=== PATIENT | female | born 1960 | race Caucasian/White ===

== ENCOUNTER 2018-01-25 12:40 | Inpatient (IN) | payer OTHER ==
--- NOTE | 2018-01-25 18:07 | HP ---
COWS - Scale Resting Pulse: 0= SD 80 or Below Sweatin=Flushed/Facial Moisture Restless Observation: 1= Difficult to Sit Still Pupil Size: 0= Normal to Room Light Bone or Joint Aches: 2= Severe Diffuse Aches Runny Nose/ Eye Tearin= Runny Nose/Eyes GI Upset > 30mins: 2= Nausea/Diarrhea Tremor Observation: 2= Slight Tremor Visible Yawning Observation: 2= >3x During Session Anxiety or Irritability: 2=Irritable/Anxious Goose Flesh Skin: 3=Piloerection COWS Score: 18 Admission ROS S - HPI Chief Complaint: I am here to do detox and try to get my life back. Allergies/Adverse Reactions: Allergies Allergy/AdvReac Type Severity Reaction Status Date / Time strawberry AdvReac Hives Verified 01/25/18 15:46 History of Present Illness: pt is a 57yr old female with a history of heroin dependence seeking detox for treatment. Exam Limitations: No Limitations - Ebola screening Have you traveled outside of the country in the last 21 days: No Have you had contact with anyone from an Ebola affected area: No Have you been sick,other than usual withdrawal symptoms: No Do you have a fever: No - Review of Systems Constitutional: Chills, Diaphoresis, Changes in sleep EENT: reports: Tearing, Nose Congestion Respiratory: reports: No Symptoms reported Cardiac: reports: No Symptoms Reported GI: reports: Diarrhea (was hospitalized a week ago but not sure of diagnosis nor of any ABX she is suppose to be on.), Nausea, Poor Fluid Intake, Indigestion : reports: No Symptoms Reported Musculoskeletal: reports: Back Pain Integumentary: reports: Flushing Neuro: reports: Tingling, Tremors Endocrine: reports: Excessive Sweating, Flushing Hematology: reports: No Symptoms Reported Psychiatric: reports: Judgement Intact, Mood/Affect Appropiate, Orientated x3, Agitated, Anxious Other Systems: Reviewed and Negative Patient History - Patient Medical History Hx Anemia: No Hx Asthma: Yes (ON MEDICATION) Hx Chronic Obstructive Pulmonary Disease (COPD): No Hx Cancer: No Hx Cardiac Disorders: Yes Hx Congestive Heart Failure: No Hx Hypertension: Yes (ON MEDICATION) Hx Hypercholesterolemia: No Hx Pacemaker: No HX Cerebrovascular Accident: No Hx Seizures: No Hx Dementia: No Hx Diabetes: Yes Hx Gastrointestinal Disorders: Yes (GERD) Hx Liver Disease: No Hx Genitourinary Disorders: No Hx Sexually Transmitted Disorders: No Hx Renal Disease (ESRD): No Hx Thyroid Disease: No Hx Human Immunodeficiency Virus (HIV): No Hx Hepatitis C: No Hx Depression: Yes Hx Suicide Attempt: No (denies) Hx Bipolar Disorder: No Hx Schizophrenia: No - Patient Surgical History Past Surgical History: Yes Hx Neurologic Surgery: No Hx Cataract Extraction: No Hx Cardiac Surgery: No Hx Lung Surgery: No Hx Breast Surgery: No Hx Breast Biopsy: No Hx Abdominal Surgery: Yes Hx Appendectomy: No Hx Cholecystectomy: No Hx Genitourinary Surgery: No Hx Section: No Hx Orthopedic Surgery: No Other Surgical History: HYSTERECTOMY-2015, MASS IN OVARY REMOVED-2013 Anesthesia Reaction: No - PPD History Previous Implant?: Yes Documented Results: Negative w/o proof Implanted On Prior [facility] Admission?: No PPD to be Administered?: Yes - Reproductive History Patient is a Female of Child Bearing Age (11 -55 yrs old): No - Smoking Cessation Smoking history: Current every day smoker Have you smoked in the past 12 months: Yes Aproximately how many cigarettes per day: 4 Hx Chewing Tobacco Use: No Initiated information on smoking cessation: Yes 'Breaking Loose' booklet given: 01/25/18 - Substance & Tx. History Hx Alcohol Use: No Hx Substance Use: Yes Substance Use Type: Heroin Hx Substance Use Treatment: No - Substances Abused Heroin Route: Inhalation Frequency: Daily Amount used: 2 BUNDLES $110 Age of first use: 19 Date of Last Use: 01/24/18 Family Disease History - Family Disease History Family History: Denies Admission Physical Exam S - Vital Signs Vital Signs: Vital Signs - 24 hr 01/25/18 13:19 Temperature 96 F L Pulse Rate 65 Respiratory 20 Rate Blood Pressure 106/62 - Physical General Appearance: Yes: Appropriately Dressed, Moderate Distress, Thin, Tremorous, Irritable, Sweating, Anxious HEENTM: Yes: Hearing grossly Normal, Normal Voice, Nasal Congestion, Rhinorrhea Respiratory: Yes: Lungs Clear, Normal Breath Sounds, No Respiratory Distress Neck: Yes: No masses,lesions,Nodules Breast: Yes: Within Normal Limits Cardiology: Yes: Regular Rhythm, Regular Rate, S1, S2 Abdominal: Yes: Normal Bowel Sounds Genitourinary: Yes: Within Normal Limits Back: Yes: Normal Inspection Musculoskeletal: Yes: full range of Motion, Gait Steady, Back pain Extremities: Yes: Normal Capillary Refill, Normal Inspection, Non-Tender, Tremors Neurological: Yes: Fully Oriented, Alert, Normal Response Integumentary: Yes: Normal Color, Diaphoresis Lymphatic: Yes: Within Normal Limits - Diagnostic (1) Opioid dependence with withdrawal Current Visit: Yes Status: Chronic (2) Cannabis dependence Current Visit: Yes Status: Chronic (3) Insulin dependent diabetes mellitus Current Visit: Yes Status: Chronic (4) Nicotine dependence Current Visit: Yes Status: Chronic Qualifiers: Nicotine product type: cigarettes Substance use status: uncomplicated Qualified Code(s): F17.210 - Nicotine dependence, cigarettes, uncomplicated (5) Hypertension Current Visit: Yes Status: Chronic Qualifiers: Hypertension type: essential hypertension Qualified Code(s): I10 - Essential (primary) hypertension (6) Hypercholesteremia Current Visit: Yes Status: Chronic (7) Asthma Current Visit: Yes Status: Chronic Qualifiers: Asthma severity: mild Asthma persistence: unspecified (8) Neuropathy of right lower extremity Current Visit: Yes Status: Chronic (9) Back pain Current Visit: Yes Status: Chronic Qualifiers: Back pain location: low back pain Cleared for Admission [facility] - Detox or Rehab [facility] Level of Care: Medically Managed Detox Regimen/Protocol: Methadone [facility] Breath Alcohol Content Breath Alcohol Content: 0 Urine Pregancy Test - Result Urine Test Results: Negative- NO Line Present Urine Drug Screen - Results Drug Screen Negative: No Urine Drug Screen Results: THC-Marijuana, OPI-Opiates, TCA-Tricyclic Antidepress
[2018-01-25] MEDS ORDERED: NICOTINE POLACRILEX 4 MG GUM BC PRN (18:39)
[2018-01-25] MEDS ORDERED: MAG HYDROX/AL HYDROX/SIMETH 30 ML UNIT-DOSE CUP PO PRN (18:39)
[2018-01-25] MEDS ORDERED: LOPERAMIDE HCL 2 MG CAPSULE PO PRN (18:39)
[2018-01-25] MEDS ORDERED: ACETAMINOPHEN 325 MG TABLET (FP) PO PRN (18:39)
[2018-01-25] MEDS ORDERED: guaiFENesin/D-METHORPHAN HB 10 ML UNIT-DOSE CUPS PO PRN (18:39)
[2018-01-25] MEDS ORDERED: MENTHOL/PHENOL 1 EACH UD MM PRN (18:39)
[2018-01-25] MEDS ORDERED: P-EPHED 60MG/TRIPROLIDI 2.5MG TABLET PO PRN (18:39)
[2018-01-25] MEDS ORDERED: IBUPROFEN 400 MG TABLET (FP) PO PRN (18:39)
[2018-01-25] MEDS ORDERED: MAGNESIUM CITRATE 300 ML BOTTLE PO PRN (18:39)
[2018-01-25] MEDS ORDERED: MAGNESIUM HYDROX 2400MG/30ML ORAL SUSPENSION 30 ML CUP PO PRN (18:39)
[2018-01-25] MEDS ORDERED: METHADONE HCL 10 MG TABLET (FOR DETOX USE ONLY) PO ONE ×2 (18:39→23:00)
[2018-01-25] MEDS ORDERED: METHADONE HCL 10 MG TABLET (FOR DETOX USE ONLY) ONE (20:44)
[2018-01-25] MEDS: diazePAM 5 MG TABLET PO PRN (20:52)
[2018-01-25] MEDS ORDERED: ALBUTEROL SO4 18 GM HFA INHALER IH PRN (22:00)
[2018-01-25] MEDS: RANITIDINE HCL 150 MG TABLET (FP) PO SCH (22:33)
[2018-01-25] MEDS: THIAMINE HCL 100 MG TABLET (FP) PO SCH (22:34)
[2018-01-25] MEDS: GABAPENTIN 300 MG CAPSULE (FP) PO SCH (22:34)
[2018-01-25] MEDS: MELATONIN 5 MG TABLETS PO PRN (22:35)
[2018-01-25] MEDS: INSULIN (LEVEMIR) 100 UNITS/ML UNITS SQ SCH (22:40)
[2018-01-26] MEDS: diazePAM 5 MG TABLET PO PRN ×6 (00:58→22:29)
[2018-01-26] MEDS: GABAPENTIN 300 MG CAPSULE (FP) PO SCH ×3 (06:09→22:29)
[2018-01-26] MEDS: INSULIN SLIDING SCALE (NOVOLOG) 1 VIAL SQ SCH ×2 (08:28→16:51)
[2018-01-26] MEDS ORDERED: METHADONE HCL 10 MG TABLET (FOR DETOX USE ONLY) PO ONE (10:00)
[2018-01-26 10:07] LABS: HEMATOCRIT 43.4 % (32.4-45.2); HEMOGLOBIN 14.5 GM/dL (10.7-15.3); MCH 31.5 pg (25.7-33.7); MCHC 33.4 g/dl (32.0-36.0); MEAN CELL VOLUME 94.4 fl (80-96); MEAN PLT VOLUME 8.9 fl (7.5-11.1); PLATELET COUNT 221 K/MM3 (134-434); WHITE BLOOD COUNT 8.1 K/mm3 (4.0-10.0)
[2018-01-26 10:20] LABS: CHLORIDE 111 mmol/L (98-107); POTASSIUM 4.1 mmol/L (3.5-5.1); SODIUM 143 mmol/L (136-145)
[2018-01-26 10:42] LABS: ALBUMIN 3.1 g/dl (3.4-5.0); ALK PHOS 116 U/L (45-117); ANION GAP 5 (8-16); BILIRUBIN,TOTAL 0.2 mg/dL (0.2-1.0); BLOOD UREA NITROGEN 15 mg/dL (7-18); CALCIUM 8.9 mg/dL (8.5-10.1); CO2 27 mmol/L (21-32); CREATININE 0.9 mg/dL (0.55-1.02); GLUCOSE,RANDOM 93 mg/dL (74-106); SGOT/AST 14 U/L (15-37); SGPT/ALT 20 U/L (12-78); TOT PROT 6.1 g/dl (6.4-8.2)
[2018-01-26] MEDS: RANITIDINE HCL 150 MG TABLET (FP) PO SCH ×2 (10:51→22:29)
[2018-01-26] MEDS: PRENATAL VITAMINS W/ FOLIC ACID TABLET (FP) PO SCH (10:51)
[2018-01-26] MEDS: LISINOPRIL 5 MG TABLET (FP) PO SCH (10:51)
[2018-01-26] MEDS: ASPIRIN COATED 81 MG TABLET.EC PO SCH (10:56)
[2018-01-26] MEDS: NICOTINE 21 MG/24 HOURS TOPICAL PATCH TD SCH (11:27)
--- NOTE | 2018-01-26 11:28 | EKG ---
Test Reason : Blood Pressure : / mmHG Vent. Rate : 069 BPM Atrial Rate : 069 BPM P-R Int : 140 ms QRS Dur : 076 ms QT Int : 390 ms P-R-T Axes : 071 017 047 degrees QTc Int : 417 ms NORMAL SINUS RHYTHM WITH SINUS ARRHYTHMIA POSSIBLE LEFT ATRIAL ENLARGEMENT NO PREVIOUS ECGS AVAILABLE Confirmed by MARCUS LEACH MD ([id number]) on 01/26/2018 11:28:03 AM Referred By: Confirmed By:MARCUS LEACH MD
--- NOTE | 2018-01-26 11:30 | PN ---
BHS COWS - Scale Resting Pulse: 0= [place] 80 or Below Sweatin= Chills/Flushing Restless Observation: 1= Difficult to Sit Still Pupil Size: 1= Pupils >than Normal Bone or Joint Aches: 2= Severe Diffuse Aches Runny Nose/ Eye Tearin= Runny Nose/Eyes GI Upset > 30mins: 2= Nausea/Diarrhea Tremor Observation of Outstretched Hands: 2= Slight Tremor Visible Yawning Observation: 2= >3x During Session Anxiety or Irritability: 2=Irritable/Anxious Goose Flesh Skin: 0=Smooth Skin COWS Score: 15 BHS Progress Note (SOAP) Subjective: irritable joint pain body ache trouble sleep at night restlessness Objective: 01/26/18 11:28 Vital Signs Temperature 97.3 F L 01/26/18 09:47 Pulse Rate 68 01/26/18 09:47 Respiratory Rate 18 01/26/18 09:47 Blood Pressure 95/65 01/26/18 09:47 O2 Sat by Pulse Oximetry (%) Laboratory Last Values WBC 8.1 K/mm3 (4.0-10.0) 01/26/18 07:50 RBC 4.60 M/mm3 (3.60-5.2) 01/26/18 07:50 Hgb 14.5 GM/dL (10.7-15.3) 01/26/18 07:50 Hct 43.4 % (32.4-45.2) 01/26/18 07:50 MCV 94.4 fl (80-96) 01/26/18 07:50 MCH 31.5 pg (25.7-33.7) 01/26/18 07:50 MCHC 33.4 g/dl (32.0-36.0) 01/26/18 07:50 RDW 14.0 % (11.6-15.6) 01/26/18 07:50 Plt Count 221 K/MM3 (134-434) 01/26/18 07:50 MPV 8.9 fl (7.5-11.1) 01/26/18 07:50 Sodium 143 mmol/L (136-145) 01/26/18 07:50 Potassium 4.1 mmol/L (3.5-5.1) 01/26/18 07:50 Chloride 111 mmol/L (98-107) H 01/26/18 07:50 Carbon Dioxide 27 mmol/L (21-32) 01/26/18 07:50 Anion Gap 5 (8-16) L 01/26/18 07:50 BUN 15 mg/dL (7-18) 01/26/18 07:50 Creatinine 0.9 mg/dL (0.55-1.02) 01/26/18 07:50 Creat Clearance w eGFR > 60 (>60) 01/26/18 07:50 POC Glucometer 100 UNITS (80-120) 01/26/18 06:49 Random Glucose 93 mg/dL (74-106) 01/26/18 07:50 Calcium 8.9 mg/dL (8.5-10.1) 01/26/18 07:50 Total Bilirubin 0.2 mg/dL (0.2-1.0) 01/26/18 07:50 AST 14 U/L (15-37) L 01/26/18 07:50 ALT 20 U/L (12-78) 01/26/18 07:50 Alkaline Phosphatase 116 U/L (45-117) 01/26/18 07:50 Total Protein 6.1 g/dl (6.4-8.2) L 01/26/18 07:50 Albumin 3.1 g/dl (3.4-5.0) L 01/26/18 07:50 lab noted Assessment: 01/26/18 11:29 withdrawal sx Plan: continue detox
[2018-01-26] MEDS: BACLOFEN 10 MG TABLET (FP) PO PRN ×2 (12:58→22:29)
[2018-01-26 14:20] LABS: URINE APPEARANCE CLEAR; URINE BILIRUBIN NEGATIVE (<2.0 mg/dL); URINE BLOOD NEGATIVE (NEGATIVE); URINE COLOR YELLOW; URINE GLUCOSE (UA) NEGATIVE (NEGATIVE); URINE KETONE NEGATIVE (NEGATIVE); URINE LEUK ESTERASE NEGATIVE (NEGATIVE); URINE NITRITE NEGATIVE (NEGATIVE); URINE PROTEIN NEGATIVE (NEGATIVE); URINE UROBILINOGEN NEGATIVE mg/dL (0.2-1.0)
--- NOTE | 2018-01-26 19:48 | CONSULT ---
[facility] Psychiatric Consult - Data Date of interview: 01/26/18 Admission source: [facility] Identifying data: Readmission to [facility] for this 57 y/o female seeking detox treatment on for heroin and cannabis dependence.Patient is ,a mother of four,homeless ([facility]),unemployed and supported on SSI benefits. Substance Abuse History: Confirmed by patient in this session.Smoking history: Current every day smoker. Have you smoked in the past 12 months: Yes. Aproximately how many cigarettes per day: 4. Hx Chewing Tobacco Use: No. Initiated information on smoking cessation: Yes. 'Breaking Loose' booklet given : 01/25/18. - Substance & Tx. History. Hx Alcohol Use: No. Hx Substance Use: Yes. Substance Use Type: Heroin. Hx Substance Use Treatment: No. - Substances Abused. Heroin. Route: Inhalation. Frequency: Daily. Amount used: 2 BUNDLES $110. Age of first use: 19. Date of Last Use: 01/24/18 Medical History: Diabetes mellitus,bronchial asthma,GERD and a history of hysterectomy (2016). Psychiatric History: History of four psychiatric hospitalizations in [place].Diagnosed with Bipolar Disorder.Prescribed seroquel 400 mg po hs.Ms Nicholson gets her psychiatric outpatient services at her [facility], [facility].Patient denies history of suicide attempts. Physical/Sexual Abuse/Trauma History: Patient denies. Additional Comment: Urine Drug Screen Results: THC-Marijuana, OPI-Opiates, TCA- Tricyclic Antidepressant.Noted. Mental Status Exam - Mental Status Exam Alert and Oriented to: Time, Place, Person Cognitive Function: Good Patient Appearance: Well Groomed Mood: Nervous, Withdrawn, Anxious Affect: Mood Congruent Patient Behavior: Fatigued, Appropriate, Cooperative Speech Pattern: Clear, Appropriate Voice Loudness: Normal Thought Process: Goal Oriented Thought Disorder: Not Present Hallucinations: Denies Suicidal Ideation: Denies Homicidal Ideation: Denies Insight/Judgement: Poor Sleep: Poorly, Difficulty falling asleep Appetite: Good Muscle strength/Tone: Normal Gait/Station: Normal Psychiatric Findings - Problem List (Adrian 1, 2,3) (1) Opioid dependence with withdrawal Current Visit: Yes Status: Acute (2) Cannabis dependence Current Visit: Yes Status: Acute (3) Nicotine dependence Current Visit: Yes Status: Chronic Qualifiers: Nicotine product type: cigarettes Substance use status: uncomplicated Qualified Code(s): F17.210 - Nicotine dependence, cigarettes, uncomplicated (4) Bipolar disorder Current Visit: Yes Status: Chronic (5) Insomnia Current Visit: Yes Status: Acute - Initial Treatment Plan Initial Treatment Plan: Psychoeducation.Sleep hygiene.Detoxification.Seroquel 300 mg po hs (reduced).Side effects/benefits discussed with the patient.Ms Nicholson agrees with this careplan.Observation.Dose of seroquel was verified ( refill bottle seen/dated 01/19/18). NO scripts necessary at discharge (supply still available).
[2018-01-26] MEDS: THIAMINE HCL 100 MG TABLET (FP) PO SCH (22:29)
[2018-01-26] MEDS: INSULIN (LEVEMIR) 100 UNITS/ML UNITS SQ SCH (22:34)
--- NOTE | 2018-01-26 22:53 | PN ---
[facility] Progress Note Note: was called by a nurse to enter order for Seroquel, consulting note appreciated, his recommendation to start Seroquel with reduce dosage 300 mg po hs, order placed.
[2018-01-26] MEDS: QUEtiapine FUMARATE 300 MG TABLET PO SCH (23:00)
[2018-01-27] MEDS: GABAPENTIN 300 MG CAPSULE (FP) PO SCH ×3 (06:46→22:25)
[2018-01-27] MEDS: INSULIN SLIDING SCALE (NOVOLOG) 1 VIAL SQ SCH ×2 (06:46→18:04)
--- NOTE | 2018-01-27 08:48 | EKG ---
Test Reason : Blood Pressure : / mmHG Vent. Rate : 075 BPM Atrial Rate : 075 BPM P-R Int : 136 ms QRS Dur : 072 ms QT Int : 394 ms P-R-T Axes : 074 017 044 degrees QTc Int : 439 ms NORMAL SINUS RHYTHM WITH SINUS ARRHYTHMIA NORMAL ECG WHEN COMPARED WITH ECG OF 25-JAN-2018 21:06, NO SIGNIFICANT CHANGE WAS FOUND Confirmed by RAFY BIRMINGHAM MD ([id number]) on 01/27/2018 8:48:21 AM Referred By: Confirmed By:RAFY BIRMINGHAM MD
[2018-01-27] MEDS ORDERED: METHADONE HCL 5 MG TABLET (FOR DETOX USE ONLY) PO ONE (10:00)
[2018-01-27] MEDS: CITALOPRAM HYDROBROMIDE 20 MG TABLET (FP) PO SCH (10:40)
[2018-01-27] MEDS: ASPIRIN COATED 81 MG TABLET.EC PO SCH (10:40)
[2018-01-27] MEDS: PRENATAL VITAMINS W/ FOLIC ACID TABLET (FP) PO SCH (10:40)
[2018-01-27] MEDS: diazePAM 5 MG TABLET PO PRN ×3 (10:40→20:04)
[2018-01-27] MEDS: BACLOFEN 10 MG TABLET (FP) PO PRN ×2 (10:40→22:25)
[2018-01-27] MEDS: RANITIDINE HCL 150 MG TABLET (FP) PO SCH ×2 (10:40→22:25)
[2018-01-27] MEDS: NICOTINE 21 MG/24 HOURS TOPICAL PATCH TD SCH (12:46)
[2018-01-27] MEDS: LISINOPRIL 5 MG TABLET (FP) PO SCH (12:46)
--- NOTE | 2018-01-27 14:01 | PN ---
BHS COWS - Scale Resting Pulse: 1= ID [id number] Sweatin= Chills/Flushing Restless Observation: 3= Extraneous Movement Pupil Size: 1= Pupils >than Normal Bone or Joint Aches: 2= Severe Diffuse Aches Runny Nose/ Eye Tearin= Nasal Congestion GI Upset > 30mins: 2= Nausea/Diarrhea Tremor Observation of Outstretched Hands: 2= Slight Tremor Visible Yawning Observation: 1= 1-2x During Session Anxiety or Irritability: 2=Irritable/Anxious Goose Flesh Skin: 0=Smooth Skin COWS Score: 16 BHS Progress Note (SOAP) Subjective: ALERT,IRRITABLE,ANXIOUS.INTERRUPTED SLEEP,PAIN IN THE BODY Objective: 01/27/18 13:59 Vital Signs Temperature 97.9 F 01/27/18 09:44 Pulse Rate 83 01/27/18 09:44 Respiratory Rate 16 01/27/18 09:44 Blood Pressure 119/67 01/27/18 09:44 O2 Sat by Pulse Oximetry (%) 01/27/18 14:00 Laboratory Last Values WBC 8.1 K/mm3 (4.0-10.0) 01/26/18 07:50 RBC 4.60 M/mm3 (3.60-5.2) 01/26/18 07:50 Hgb 14.5 GM/dL (10.7-15.3) 01/26/18 07:50 Hct 43.4 % (32.4-45.2) 01/26/18 07:50 MCV 94.4 fl (80-96) 01/26/18 07:50 MCH 31.5 pg (25.7-33.7) 01/26/18 07:50 MCHC 33.4 g/dl (32.0-36.0) 01/26/18 07:50 RDW 14.0 % (11.6-15.6) 01/26/18 07:50 Plt Count 221 K/MM3 (134-434) 01/26/18 07:50 MPV 8.9 fl (7.5-11.1) 01/26/18 07:50 Sodium 143 mmol/L (136-145) 01/26/18 07:50 Potassium 4.1 mmol/L (3.5-5.1) 01/26/18 07:50 Chloride 111 mmol/L (98-107) H 01/26/18 07:50 Carbon Dioxide 27 mmol/L (21-32) 01/26/18 07:50 Anion Gap 5 (8-16) L 01/26/18 07:50 BUN 15 mg/dL (7-18) 01/26/18 07:50 Creatinine 0.9 mg/dL (0.55-1.02) 01/26/18 07:50 Creat Clearance w eGFR > 60 (>60) 01/26/18 07:50 POC Glucometer 116 UNITS (80-120) 01/27/18 06:08 Random Glucose 93 mg/dL (74-106) 01/26/18 07:50 Calcium 8.9 mg/dL (8.5-10.1) 01/26/18 07:50 Total Bilirubin 0.2 mg/dL (0.2-1.0) 01/26/18 07:50 AST 14 U/L (15-37) L 01/26/18 07:50 ALT 20 U/L (12-78) 01/26/18 07:50 Alkaline Phosphatase 116 U/L (45-117) 01/26/18 07:50 Total Protein 6.1 g/dl (6.4-8.2) L 01/26/18 07:50 Albumin 3.1 g/dl (3.4-5.0) L 01/26/18 07:50 Urine Color Yellow 01/26/18 10:00 Urine Appearance Clear 01/26/18 10:00 Urine pH 5.0 (5.0-8.0) 01/26/18 10:00 Ur Specific [place] 1.014 (1.001-1.035) 01/26/18 10:00 Urine Protein Negative (NEGATIVE) 01/26/18 10:00 Urine Glucose (UA) Negative (NEGATIVE) 01/26/18 10:00 Urine Ketones Negative (NEGATIVE) 01/26/18 10:00 Urine Blood Negative (NEGATIVE) 01/26/18 10:00 Urine Nitrite Negative (NEGATIVE) 01/26/18 10:00 Urine Bilirubin Negative (<2.0 mg/dL) 01/26/18 10:00 Urine Urobilinogen Negative mg/dL (0.2-1.0) 01/26/18 10:00 Ur Leukocyte Esterase Negative (NEGATIVE) 01/26/18 10:00 RPR Titer Nonreactive (NONREACTIVE) 01/26/18 07:50 Assessment: 01/27/18 14:00 WITHDRAWAL SYMPTOM Plan: CONTINUE DETOX
[2018-01-27] MEDS: THIAMINE HCL 100 MG TABLET (FP) PO SCH (22:24)
[2018-01-27] MEDS: QUEtiapine FUMARATE 300 MG TABLET PO SCH (22:25)
[2018-01-27] MEDS: INSULIN (LEVEMIR) 100 UNITS/ML UNITS SQ SCH (22:25)
[2018-01-28] MEDS: GABAPENTIN 300 MG CAPSULE (FP) PO SCH ×3 (06:33→22:34)
[2018-01-28] MEDS: INSULIN SLIDING SCALE (NOVOLOG) 1 VIAL SQ SCH ×2 (06:33→16:31)
[2018-01-28] MEDS: diazePAM 5 MG TABLET PO PRN ×2 (07:33→15:12)
[2018-01-28] MEDS ORDERED: METHADONE HCL 5 MG TABLET (FOR DETOX USE ONLY) PO ONE (10:00)
[2018-01-28] MEDS: RANITIDINE HCL 150 MG TABLET (FP) PO SCH ×2 (10:30→22:34)
[2018-01-28] MEDS: CITALOPRAM HYDROBROMIDE 20 MG TABLET (FP) PO SCH (10:30)
[2018-01-28] MEDS: ASPIRIN COATED 81 MG TABLET.EC PO SCH (10:30)
[2018-01-28] MEDS: LISINOPRIL 5 MG TABLET (FP) PO SCH (10:30)
[2018-01-28] MEDS: PRENATAL VITAMINS W/ FOLIC ACID TABLET (FP) PO SCH (10:30)
[2018-01-28] MEDS: NICOTINE 21 MG/24 HOURS TOPICAL PATCH TD SCH (10:33)
[2018-01-28] MEDS: hydrOXYzine PAMOATE 50 MG CAPSULE (FP) PO PRN ×2 (17:36→22:34)
[2018-01-28] MEDS: QUEtiapine FUMARATE 300 MG TABLET PO SCH (22:34)
[2018-01-28] MEDS: BACLOFEN 10 MG TABLET (FP) PO PRN (22:34)
[2018-01-28] MEDS: INSULIN (LEVEMIR) 100 UNITS/ML UNITS SQ SCH (22:35)
[2018-01-28] MEDS: THIAMINE HCL 100 MG TABLET (FP) PO SCH (22:35)
[2018-01-29] MEDS: hydrOXYzine PAMOATE 50 MG CAPSULE (FP) PO PRN ×2 (06:51→12:52)
[2018-01-29] MEDS: GABAPENTIN 300 MG CAPSULE (FP) PO SCH ×3 (06:51→22:26)
[2018-01-29] MEDS: INSULIN SLIDING SCALE (NOVOLOG) 1 VIAL SQ SCH ×2 (07:14→17:05)
[2018-01-29] MEDS ORDERED: METHADONE HCL 10 MG TABLET (FOR DETOX USE ONLY) PO ONE (10:00)
[2018-01-29] MEDS: PRENATAL VITAMINS W/ FOLIC ACID TABLET (FP) PO SCH (11:01)
[2018-01-29] MEDS: LISINOPRIL 5 MG TABLET (FP) PO SCH (11:01)
[2018-01-29] MEDS: CITALOPRAM HYDROBROMIDE 20 MG TABLET (FP) PO SCH (11:01)
[2018-01-29] MEDS: NICOTINE 21 MG/24 HOURS TOPICAL PATCH TD SCH (11:01)
[2018-01-29] MEDS: ASPIRIN COATED 81 MG TABLET.EC PO SCH (11:01)
[2018-01-29] MEDS: RANITIDINE HCL 150 MG TABLET (FP) PO SCH ×2 (11:01→22:26)
--- NOTE | 2018-01-29 14:30 | PN ---
BHS Progress Note (SOAP) Subjective: ALERT,IRRITABLE,ANXIOUS,INTERRUPTED SLEEP Objective: 01/29/18 14:29 Vital Signs Temperature 98.1 F 01/29/18 09:44 Pulse Rate 76 01/29/18 09:44 Respiratory Rate 20 01/29/18 09:44 Blood Pressure 128/79 01/29/18 09:44 O2 Sat by Pulse Oximetry (%) Assessment: 01/29/18 14:29 WITHDRAWAL SYMPTOM 01/29/18 14:30 BGM 113 Plan: CONTINUE DETOX,DISCHARGE IN AM
--- NOTE | 2018-01-29 14:36 | PN ---
BHS Progress Note (SOAP) Subjective: ALERT,IRRITABLE,ANXIOUS,INTERRUPTED SLEEP,PAIN IN THE BODY Objective: 01/29/18 14:34 [id number] Assessment: 01/29/18 14:34 WITHDRAWAL SYMPTOM Plan: CONTINUE DETOX
[2018-01-29] MEDS ORDERED: INSULIN (NOVOLOG) ASPART 100 UNITS/ML 10ML VIAL ONE (16:59)
[2018-01-29] MEDS ORDERED: QUEtiapine FUMARATE 100 MG TABLET (FP) ONE (21:17)
[2018-01-29] MEDS: THIAMINE HCL 100 MG TABLET (FP) PO SCH (22:26)
[2018-01-29] MEDS: QUEtiapine FUMARATE 300 MG TABLET PO SCH (22:26)
[2018-01-29] MEDS: MELATONIN 5 MG TABLETS PO PRN (22:27)
[2018-01-29] MEDS: INSULIN (LEVEMIR) 100 UNITS/ML UNITS SQ SCH (22:29)
[2018-01-30] MEDS ORDERED: METHADONE HCL 5 MG TABLET (FOR DETOX USE ONLY) PO ONE (06:00)
[2018-01-30] MEDS: INSULIN SLIDING SCALE (NOVOLOG) 1 VIAL SQ SCH ×2 (07:47→17:05)
[2018-01-30] MEDS: GABAPENTIN 300 MG CAPSULE (FP) PO SCH ×3 (07:47→21:11)
--- NOTE | 2018-01-30 08:57 | DS ---
[facility] Detox Discharge Summary Admission Date: 01/25/18 Discharge Date: 01/30/18 - History Present History: Opioid Dependence Additional Comments: 57 years old female admitted on 01/25/18 for opiate withdrawal sx completed opiate detox regimen tolerated well denies opiate withdrawal sx alert oriented x 3 had positive ppd and negative chest x ray today denies night sweat denies shortness of breath denies dizziness agrees aftercare [facility] for recovery journey brief motivational intervention to promote sobriety - Physical Exam Results Vital Signs: Vital Signs Temperature 95.7 F L 01/30/18 06:00 Pulse Rate 68 01/30/18 06:00 Respiratory Rate 18 01/30/18 06:00 Blood Pressure 125/62 01/30/18 06:00 O2 Sat by Pulse Oximetry (%) Pertinent Admission Physical Exam Findings: withdrawal sx Vital Signs Temperature 95.7 F L 01/30/18 06:00 Pulse Rate 68 01/30/18 06:00 Respiratory Rate 18 01/30/18 06:00 Blood Pressure 125/62 01/30/18 06:00 O2 Sat by Pulse Oximetry (%) Laboratory Last Values WBC 8.1 K/mm3 (4.0-10.0) 01/26/18 07:50 RBC 4.60 M/mm3 (3.60-5.2) 01/26/18 07:50 Hgb 14.5 GM/dL (10.7-15.3) 01/26/18 07:50 Hct 43.4 % (32.4-45.2) 01/26/18 07:50 MCV 94.4 fl (80-96) 01/26/18 07:50 MCH 31.5 pg (25.7-33.7) 01/26/18 07:50 MCHC 33.4 g/dl (32.0-36.0) 01/26/18 07:50 RDW 14.0 % (11.6-15.6) 01/26/18 07:50 Plt Count 221 K/MM3 (134-434) 01/26/18 07:50 MPV 8.9 fl (7.5-11.1) 01/26/18 07:50 Sodium 143 mmol/L (136-145) 01/26/18 07:50 Potassium 4.1 mmol/L (3.5-5.1) 01/26/18 07:50 Chloride 111 mmol/L (98-107) H 01/26/18 07:50 Carbon Dioxide 27 mmol/L (21-32) 01/26/18 07:50 Anion Gap 5 (8-16) L 01/26/18 07:50 BUN 15 mg/dL (7-18) 01/26/18 07:50 Creatinine 0.9 mg/dL (0.55-1.02) 01/26/18 07:50 Creat Clearance w eGFR > 60 (>60) 01/26/18 07:50 POC Glucometer 114 UNITS (80-120) 01/30/18 05:56 Random Glucose 93 mg/dL (74-106) 01/26/18 07:50 Calcium 8.9 mg/dL (8.5-10.1) 01/26/18 07:50 Total Bilirubin 0.2 mg/dL (0.2-1.0) 01/26/18 07:50 AST 14 U/L (15-37) L 01/26/18 07:50 ALT 20 U/L (12-78) 01/26/18 07:50 Alkaline Phosphatase 116 U/L (45-117) 01/26/18 07:50 Total Protein 6.1 g/dl (6.4-8.2) L 01/26/18 07:50 Albumin 3.1 g/dl (3.4-5.0) L 01/26/18 07:50 Urine Color Yellow 01/26/18 10:00 Urine Appearance Clear 01/26/18 10:00 Urine pH 5.0 (5.0-8.0) 01/26/18 10:00 Ur Specific [place] 1.014 (1.001-1.035) 01/26/18 10:00 Urine Protein Negative (NEGATIVE) 01/26/18 10:00 Urine Glucose (UA) Negative (NEGATIVE) 01/26/18 10:00 Urine Ketones Negative (NEGATIVE) 01/26/18 10:00 Urine Blood Negative (NEGATIVE) 01/26/18 10:00 Urine Nitrite Negative (NEGATIVE) 01/26/18 10:00 Urine Bilirubin Negative (<2.0 mg/dL) 01/26/18 10:00 Urine Urobilinogen Negative mg/dL (0.2-1.0) 01/26/18 10:00 Ur Leukocyte Esterase Negative (NEGATIVE) 01/26/18 10:00 RPR Titer Nonreactive (NONREACTIVE) 01/26/18 07:50 lab noted - Treatment Hospital Course: Detox Protocol Followed, Detoxed Safely, Responded well, Discharged Condition Good, Rehab Referral Accepted Patient has Accepted a Rehab Referral to: [facility] - Medication Discharge Medications: Ambulatory Orders Aspirin [Aspirin EC] 81 mg PO DAILY 01/25/18 Citalopram Hydrobromide [Citalopram HBr] 20 mg PO DAILY 01/25/18 Famotidine [Pepcid -] 40 mg PO HS 01/25/18 Hydroxyzine HCl 25 mg PO Q8H 01/25/18 Insulin (LOG) Aspart [NovoLOG -] See Protocol SQ QID 01/25/18 Insulin Glargine,Hum.rec.anlog [Lantus] 25 units SQ HS 01/25/18 Omeprazole 20 mg PO HS 01/25/18 Quetiapine Fumarate [Seroquel -] 400 mg PO HS 01/25/18 Albuterol Sulfate Inhaler - [Ventolin HFA Inhaler -] 1 - 2 inh PO QID #1 inhaler 01/30/18 Gabapentin [Neurontin -] 300 mg PO Q8H #60 capsule 01/30/18 Lisinopril 5 mg PO DAILY #30 tablet 01/30/18 - Diagnosis (1) Opioid dependence with withdrawal Current Visit: Yes Status: Acute (2) Asthma Current Visit: Yes Status: Chronic Qualifiers: Asthma severity: mild Asthma persistence: unspecified Asthma complication type: with status asthmaticus Qualified Code(s): J45.902 - Unspecified asthma with status asthmaticus (3) Hypercholesteremia Current Visit: Yes Status: Chronic (4) Hypertension Current Visit: Yes Status: Chronic Qualifiers: Hypertension type: essential hypertension Qualified Code(s): I10 - Essential (primary) hypertension (5) Insulin dependent diabetes mellitus Current Visit: Yes Status: Chronic (6) Nicotine dependence Current Visit: Yes Status: Acute Qualifiers: Nicotine product type: cigarettes Substance use status: in withdrawal Qualified Code(s): F17.213 - Nicotine dependence, cigarettes, with withdrawal - AMA Did Patient Leave Against Medical Advice: No
[2018-01-30] MEDS: PRENATAL VITAMINS W/ FOLIC ACID TABLET (FP) PO SCH (10:22)
[2018-01-30] MEDS: ASPIRIN COATED 81 MG TABLET.EC PO SCH (10:22)
[2018-01-30] MEDS: CITALOPRAM HYDROBROMIDE 20 MG TABLET (FP) PO SCH (10:22)
[2018-01-30] MEDS: LISINOPRIL 5 MG TABLET (FP) PO SCH (10:22)
[2018-01-30] MEDS: NICOTINE 21 MG/24 HOURS TOPICAL PATCH TD SCH (10:23)
[2018-01-30] MEDS: RANITIDINE HCL 150 MG TABLET (FP) PO SCH ×2 (10:23→21:11)
--- NOTE | 2018-01-30 10:46 | HP ---
[facility] Re[facility] Assess/Revision - Admission History Admitted to Rehab from: [facility] [place] Date of Admission to Rehab: 01/30/18 - Vital signs Vital Signs: Vital Signs Period Temp Pulse Resp BP Sys/Zuniga Pulse Ox Last 24 Hr 95.7 F-98.8 F 68-110 16-20 117-144/62-82 - Findings Detox History & Physical reviewed: Yes Concur with findings: Yes Comments/Additional Findings: 57 years old transferred from detox to rehab admission as per protocol Inpatient Rehab Admission - Rehab Admission Criteria Previous failed treatment: Yes Poor recovery environment: Yes Comorbidities: Yes Lacks judgement: No Patient is meeting Inpatient Rehab admission criteria:: Yes
[2018-01-30 11:39] VITALS: BMI 25.7
[2018-01-30] MEDS: hydrOXYzine PAMOATE 50 MG CAPSULE (FP) PO PRN ×2 (13:21→19:45)
[2018-01-30] MEDS: INSULIN (LEVEMIR) 100 UNITS/ML UNITS SQ SCH (21:10)
[2018-01-30] MEDS: MELATONIN 5 MG TABLETS PO PRN (21:11)
[2018-01-30] MEDS: THIAMINE HCL 100 MG TABLET (FP) PO SCH (21:11)
[2018-01-30] MEDS: QUEtiapine FUMARATE 300 MG TABLET PO SCH (21:11)
[2018-01-31] MEDS: GABAPENTIN 300 MG CAPSULE (FP) PO SCH ×3 (06:58→21:09)
[2018-01-31] MEDS: INSULIN SLIDING SCALE (NOVOLOG) 1 VIAL SQ SCH ×2 (06:58→17:10)
[2018-01-31] MEDS: hydrOXYzine PAMOATE 50 MG CAPSULE (FP) PO PRN ×3 (07:00→20:10)
[2018-01-31] MEDS: PRENATAL VITAMINS W/ FOLIC ACID TABLET (FP) PO SCH (09:51)
[2018-01-31] MEDS: RANITIDINE HCL 150 MG TABLET (FP) PO SCH ×2 (09:51→21:09)
[2018-01-31] MEDS: ASPIRIN COATED 81 MG TABLET.EC PO SCH (09:51)
[2018-01-31] MEDS: NICOTINE 21 MG/24 HOURS TOPICAL PATCH TD SCH (09:52)
[2018-01-31] MEDS: CITALOPRAM HYDROBROMIDE 20 MG TABLET (FP) PO SCH (09:52)
[2018-01-31] MEDS: LISINOPRIL 5 MG TABLET (FP) PO SCH (09:52)
--- NOTE | 2018-01-31 12:14 | HP ---
Psychiatrist Admission - Data Date of interview: 01/31/18 Admission source: detox Identifying data: This is the first admission to [address] [place] [address] for this 57 yo H female mother of 4,residing in halfway, supported by [facility]. Medical History: DM,BA,GERD,H/O Hysterectomy. Psychiatric History: Patient has long and extensive psychiatric history started back 20-25 years ago with 4 psychiatric hospitalizations.She was dx with Bipolar disorder.Patient sees psychiatrist at [facility] in the [place].Current medications:Seroquel 400 mg po hs and Celexa 20 mg po daily ( continued while in detox on prescribed by ). Physical/Sexual Abuse/Trauma History: Patient denies. Vital Signs: Vital Signs - 24 hr 01/31/18 01/31/18 01/31/18 00:30 03:30 07:02 Temperature 97.8 F Pulse Rate 88 Respiratory 18 18 18 Rate Blood Pressure 95/66 01/31/18 10:00 Temperature Pulse Rate 99 H Respiratory Rate Blood Pressure 108/70 Allergies/Adverse Reactions: Allergies Allergy/AdvReac Type Severity Reaction Status Date / Time strawberry AdvReac Hives Verified 01/25/18 15:46 Date of last physical exam: 01/25/18 Concur with the findings of this exam: Yes - Substance Abuse/Tx History Hx Alcohol Use: No Hx Substance Use: Yes (heroin since 19 yo,2 bundles daily) Substance Use Type: Heroin Hx Substance Use Treatment: Yes (this is her first inpatient rehab,abstinence 8 years) Mental Status Exam - Mental Status Exam Alert and Oriented to: Time, Place, Person Cognitive Function: Grossly Intact Patient Appearance: Well Groomed Mood: Anxious Affect: Mood Congruent, Labile Patient Behavior: Cooperative Speech Pattern: Clear Voice Loudness: Normal Thought Process: Goal Oriented Thought Disorder: Not Present Hallucinations: Denies Suicidal Ideation: Denies Homicidal Ideation: Denies Insight/Judgement: Fair Sleep: Fair Appetite: Good Muscle strength/Tone: Normal Gait/Station: Normal Psychiatric Findings - Problem List ([place] 1, 2,3) (1) Cannabis dependence Current Visit: Yes Status: Deleted (2) Nicotine dependence Current Visit: Yes Status: Chronic Qualifiers: Nicotine product type: cigarettes Substance use status: in withdrawal Qualified Code(s): F17.213 - Nicotine dependence, cigarettes, with withdrawal (3) Asthma Current Visit: Yes Status: Chronic Qualifiers: Asthma severity: mild Asthma persistence: unspecified Asthma complication type: with status asthmaticus Qualified Code(s): J45.902 - Unspecified asthma with status asthmaticus (4) Back pain Current Visit: Yes Status: Chronic Qualifiers: Back pain location: low back pain (5) Bipolar disorder Current Visit: Yes Status: Chronic (6) Opioid dependence Current Visit: Yes Status: Chronic (7) Hypercholesteremia Current Visit: Yes Status: Chronic (8) Hypertension Current Visit: Yes Status: Chronic Qualifiers: Hypertension type: essential hypertension Qualified Code(s): I10 - Essential (primary) hypertension (9) Insulin dependent diabetes mellitus Current Visit: Yes Status: Chronic (10) Neuropathy of right lower extremity Current Visit: Yes Status: Chronic - Initial Treatment Plan Initial Treatment Plan: Continue Celexa 20 mg po daily,Seroquel 400 mg po hs., add Trazodone 100 mg po hs. Will monitor progress.
[2018-01-31] MEDS ORDERED: INSULIN (NOVOLOG) ASPART 100 UNITS/ML 10ML VIAL ONE (17:19)
[2018-01-31] MEDS: INSULIN (LEVEMIR) 100 UNITS/ML UNITS SQ SCH (21:09)
[2018-01-31] MEDS: THIAMINE HCL 100 MG TABLET (FP) PO SCH (21:09)
[2018-01-31] MEDS: QUEtiapine FUMARATE 400 MG TABLET PO SCH (21:09)
[2018-01-31] MEDS: traZODone HCL 100 MG TABLET (FP) PO SCH (21:09)
[2018-01-31] MEDS: BACLOFEN 10 MG TABLET (FP) PO PRN (21:11)
[2018-02-01] MEDS: INSULIN SLIDING SCALE (NOVOLOG) 1 VIAL SQ SCH ×2 (06:47→16:30)
[2018-02-01] MEDS: hydrOXYzine PAMOATE 50 MG CAPSULE (FP) PO PRN ×3 (06:48→21:07)
[2018-02-01] MEDS: GABAPENTIN 300 MG CAPSULE (FP) PO SCH ×3 (06:48→21:05)
[2018-02-01] MEDS: LISINOPRIL 5 MG TABLET (FP) PO SCH (09:06)
[2018-02-01] MEDS: CITALOPRAM HYDROBROMIDE 20 MG TABLET (FP) PO SCH (09:06)
[2018-02-01] MEDS: PRENATAL VITAMINS W/ FOLIC ACID TABLET (FP) PO SCH (09:06)
[2018-02-01] MEDS: ARTIFICIAL TEARS (POLYVINYL ALCOHOL 1.4%) OPTH DROPS OU PRN (09:09)
[2018-02-01] MEDS: ASPIRIN COATED 81 MG TABLET.EC PO SCH (09:09)
[2018-02-01] MEDS: RANITIDINE HCL 150 MG TABLET (FP) PO SCH ×2 (09:09→21:05)
[2018-02-01] MEDS: NICOTINE 21 MG/24 HOURS TOPICAL PATCH TD SCH (09:09)
--- NOTE | 2018-02-01 14:39 | PN ---
S Progress Note Note: Patient is a 57 yo female with hx DMII on insulin therapy and polysubstance dependence, c/o of left eye pain, redness, tearing which started yesterday, and has worsen today. As patient pain in worsen when in a supine position Vital Signs Temperature 97.3 F L 02/01/18 09:05 Pulse Rate 105 H 02/01/18 09:05 Respiratory Rate 16 02/01/18 09:05 Blood Pressure 127/84 02/01/18 09:05 O2 Sat by Pulse Oximetry (%) Laboratory Last Values WBC 8.1 K/mm3 (4.0-10.0) 01/26/18 07:50 RBC 4.60 M/mm3 (3.60-5.2) 01/26/18 07:50 Hgb 14.5 GM/dL (10.7-15.3) 01/26/18 07:50 Hct 43.4 % (32.4-45.2) 01/26/18 07:50 MCV 94.4 fl (80-96) 01/26/18 07:50 MCH 31.5 pg (25.7-33.7) 01/26/18 07:50 MCHC 33.4 g/dl (32.0-36.0) 01/26/18 07:50 RDW 14.0 % (11.6-15.6) 01/26/18 07:50 Plt Count 221 K/MM3 (134-434) 01/26/18 07:50 MPV 8.9 fl (7.5-11.1) 01/26/18 07:50 Sodium 143 mmol/L (136-145) 01/26/18 07:50 Potassium 4.1 mmol/L (3.5-5.1) 01/26/18 07:50 Chloride 111 mmol/L (98-107) H 01/26/18 07:50 Carbon Dioxide 27 mmol/L (21-32) 01/26/18 07:50 Anion Gap 5 (8-16) L 01/26/18 07:50 BUN 15 mg/dL (7-18) 01/26/18 07:50 Creatinine 0.9 mg/dL (0.55-1.02) 01/26/18 07:50 Creat Clearance w eGFR > 60 (>60) 01/26/18 07:50 POC Glucometer 104 UNITS (80-120) 02/01/18 06:46 Random Glucose 93 mg/dL (74-106) 01/26/18 07:50 Calcium 8.9 mg/dL (8.5-10.1) 01/26/18 07:50 Total Bilirubin 0.2 mg/dL (0.2-1.0) 01/26/18 07:50 AST 14 U/L (15-37) L 01/26/18 07:50 ALT 20 U/L (12-78) 01/26/18 07:50 Alkaline Phosphatase 116 U/L (45-117) 01/26/18 07:50 Total Protein 6.1 g/dl (6.4-8.2) L 01/26/18 07:50 Albumin 3.1 g/dl (3.4-5.0) L 01/26/18 07:50 Urine Color Yellow 01/26/18 10:00 Urine Appearance Clear 01/26/18 10:00 Urine pH 5.0 (5.0-8.0) 01/26/18 10:00 Ur Specific [place] 1.014 (1.001-1.035) 01/26/18 10:00 Urine Protein Negative (NEGATIVE) 01/26/18 10:00 Urine Glucose (UA) Negative (NEGATIVE) 01/26/18 10:00 Urine Ketones Negative (NEGATIVE) 01/26/18 10:00 Urine Blood Negative (NEGATIVE) 01/26/18 10:00 Urine Nitrite Negative (NEGATIVE) 01/26/18 10:00 Urine Bilirubin Negative (<2.0 mg/dL) 01/26/18 10:00 Urine Urobilinogen Negative mg/dL (0.2-1.0) 01/26/18 10:00 Ur Leukocyte Esterase Negative (NEGATIVE) 01/26/18 10:00 RPR Titer Nonreactive (NONREACTIVE) 01/26/18 07:50 A/P AOx3 , restless + left eye erythema, + increase lacrimation, + tenderness, + pain no adventitious breath sounds ambulation in the unit - left eye pain, decrease vision Plan: Patient transfer to [facility] via [facility] for further evaluation, patient endorse to Dr. Ambriz
[2018-02-01] MEDS: traZODone HCL 100 MG TABLET (FP) PO SCH (21:05)
[2018-02-01] MEDS: THIAMINE HCL 100 MG TABLET (FP) PO SCH (21:05)
[2018-02-01] MEDS: QUEtiapine FUMARATE 400 MG TABLET PO SCH (21:05)
[2018-02-01] MEDS: INSULIN (LEVEMIR) 100 UNITS/ML UNITS SQ SCH (22:04)
[2018-02-01] MEDS ORDERED: GENTAMICIN SULFATE OS SCH (22:34)
[2018-02-01] MEDS ORDERED: GENTAMICIN SULFATE OU SCH (23:01)
[2018-02-02] MEDS: GABAPENTIN 300 MG CAPSULE (FP) PO SCH ×3 (07:33→21:08)
[2018-02-02] MEDS: INSULIN SLIDING SCALE (NOVOLOG) 1 VIAL SQ SCH ×2 (07:36→17:34)
[2018-02-02] MEDS: GENTAMICIN SULFATE OU SCH ×4 (08:32→17:43)
[2018-02-02] MEDS ORDERED: GENTAMICIN SULFATE OS SCH (10:00)
[2018-02-02] MEDS: PRENATAL VITAMINS W/ FOLIC ACID TABLET (FP) PO SCH (10:44)
[2018-02-02] MEDS: NICOTINE 21 MG/24 HOURS TOPICAL PATCH TD SCH (10:44)
[2018-02-02] MEDS: LISINOPRIL 5 MG TABLET (FP) PO SCH (10:44)
[2018-02-02] MEDS: CITALOPRAM HYDROBROMIDE 20 MG TABLET (FP) PO SCH (10:44)
[2018-02-02] MEDS: RANITIDINE HCL 150 MG TABLET (FP) PO SCH ×2 (10:44→21:08)
[2018-02-02] MEDS: ASPIRIN COATED 81 MG TABLET.EC PO SCH (10:44)
[2018-02-02] MEDS: QUEtiapine FUMARATE 25 MG TABLET (FP) PO SCH ×3 (11:00→17:33)
[2018-02-02] MEDS ORDERED: BUPRENORPHINE/NALOXONE 2 MG/0.5 MG FILM PACKET SL ONE (15:30)
--- NOTE | 2018-02-02 16:01 | PN ---
[facility] Progress Note Note: Patient presents with c/o anxiety, opiod cravings, nausea and diarrhea, and headache. Vital Signs Temperature 97.9 F 02/02/18 07:19 Pulse Rate 97 H 02/02/18 09:28 Respiratory Rate 18 02/02/18 07:19 Blood Pressure 104/70 02/02/18 09:28 O2 Sat by Pulse Oximetry (%) Laboratory Tests 01/25/18 01/25/18 01/26/18 16:35 22:37 06:49 WBC RBC Hgb Hct MCV MCH MCHC RDW Plt Count MPV Sodium Potassium Chloride Carbon Dioxide Anion Gap BUN Creatinine Creat Clearance w eGFR POC Glucometer 136 212 100 Random Glucose Calcium Total Bilirubin AST ALT Alkaline Phosphatase Total Protein Albumin Urine Color Urine Appearance Urine pH Ur Specific [place] Urine Protein Urine Glucose (UA) Urine Ketones Urine Blood Urine Nitrite Urine Bilirubin Urine Urobilinogen Ur Leukocyte Esterase RPR Titer 01/26/18 01/26/18 01/26/18 07:50 07:50 07:50 WBC 8.1 RBC 4.60 Hgb 14.5 Hct 43.4 MCV 94.4 MCH 31.5 MCHC 33.4 RDW 14.0 Plt Count 221 MPV 8.9 Sodium 143 Potassium 4.1 Chloride 111 H Carbon Dioxide 27 Anion Gap 5 L BUN 15 Creatinine 0.9 Creat Clearance w eGFR > 60 POC Glucometer Random Glucose 93 Calcium 8.9 Total Bilirubin 0.2 AST 14 L ALT 20 Alkaline Phosphatase 116 Total Protein 6.1 L Albumin 3.1 L Urine Color Urine Appearance Urine pH Ur Specific [place] Urine Protein Urine Glucose (UA) Urine Ketones Urine Blood Urine Nitrite Urine Bilirubin Urine Urobilinogen Ur Leukocyte Esterase RPR Titer Nonreactive 01/26/18 01/26/18 01/26/18 10:00 12:59 16:35 WBC RBC Hgb Hct MCV MCH MCHC RDW Plt Count MPV Sodium Potassium Chloride Carbon Dioxide Anion Gap BUN Creatinine Creat Clearance w eGFR POC Glucometer 115 109 Random Glucose Calcium Total Bilirubin AST ALT Alkaline Phosphatase Total Protein Albumin Urine Color Yellow Urine Appearance Clear Urine pH 5.0 Ur Specific [place] 1.014 Urine Protein Negative Urine Glucose (UA) Negative Urine Ketones Negative Urine Blood Negative Urine Nitrite Negative Urine Bilirubin Negative Urine Urobilinogen Negative Ur Leukocyte Esterase Negative RPR Titer 01/26/18 01/27/18 01/27/18 22:31 06:08 16:31 WBC RBC Hgb Hct MCV MCH MCHC RDW Plt Count MPV Sodium Potassium Chloride Carbon Dioxide Anion Gap BUN Creatinine Creat Clearance w eGFR POC Glucometer 112 116 146 Random Glucose Calcium Total Bilirubin AST ALT Alkaline Phosphatase Total Protein Albumin Urine Color Urine Appearance Urine pH Ur Specific [place] Urine Protein Urine Glucose (UA) Urine Ketones Urine Blood Urine Nitrite Urine Bilirubin Urine Urobilinogen Ur Leukocyte Esterase RPR Titer 01/28/18 01/28/18 01/29/18 06:04 16:28 06:16 WBC RBC Hgb Hct MCV MCH MCHC RDW Plt Count MPV Sodium Potassium Chloride Carbon Dioxide Anion Gap BUN Creatinine Creat Clearance w eGFR POC Glucometer 120 145 113 Random Glucose Calcium Total Bilirubin AST ALT Alkaline Phosphatase Total Protein Albumin Urine Color Urine Appearance Urine pH Ur Specific [place] Urine Protein Urine Glucose (UA) Urine Ketones Urine Blood Urine Nitrite Urine Bilirubin Urine Urobilinogen Ur Leukocyte Esterase RPR Titer 01/29/18 01/30/18 01/30/18 16:36 05:56 17:04 WBC RBC Hgb Hct MCV MCH MCHC RDW Plt Count MPV Sodium Potassium Chloride Carbon Dioxide Anion Gap BUN Creatinine Creat Clearance w eGFR POC Glucometer 167 114 137 Random Glucose Calcium Total Bilirubin AST ALT Alkaline Phosphatase Total Protein Albumin Urine Color Urine Appearance Urine pH Ur Specific [place] Urine Protein Urine Glucose (UA) Urine Ketones Urine Blood Urine Nitrite Urine Bilirubin Urine Urobilinogen Ur Leukocyte Esterase RPR Titer 01/30/18 01/31/18 01/31/18 21:08 06:57 17:09 WBC RBC Hgb Hct MCV MCH MCHC RDW Plt Count MPV Sodium Potassium Chloride Carbon Dioxide Anion Gap BUN Creatinine Creat Clearance w eGFR POC Glucometer 143 93 157 Random Glucose Calcium Total Bilirubin AST ALT Alkaline Phosphatase Total Protein Albumin Urine Color Urine Appearance Urine pH Ur Specific [place] Urine Protein Urine Glucose (UA) Urine Ketones Urine Blood Urine Nitrite Urine Bilirubin Urine Urobilinogen Ur Leukocyte Esterase RPR Titer 01/31/18 02/01/18 02/01/18 21:08 06:46 21:04 WBC RBC Hgb Hct MCV MCH MCHC RDW Plt Count MPV Sodium Potassium Chloride Carbon Dioxide Anion Gap BUN Creatinine Creat Clearance w eGFR POC Glucometer 212 104 137 Random Glucose Calcium Total Bilirubin AST ALT Alkaline Phosphatase Total Protein Albumin Urine Color Urine Appearance Urine pH Ur Specific [place] Urine Protein Urine Glucose (UA) Urine Ketones Urine Blood Urine Nitrite Urine Bilirubin Urine Urobilinogen Ur Leukocyte Esterase RPR Titer 02/02/18 07:12 WBC RBC Hgb Hct MCV MCH MCHC RDW Plt Count MPV Sodium Potassium Chloride Carbon Dioxide Anion Gap BUN Creatinine Creat Clearance w eGFR POC Glucometer 107 Random Glucose Calcium Total Bilirubin AST ALT Alkaline Phosphatase Total Protein Albumin Urine Color Urine Appearance Urine pH Ur Specific [place] Urine Protein Urine Glucose (UA) Urine Ketones Urine Blood Urine Nitrite Urine Bilirubin Urine Urobilinogen Ur Leukocyte Esterase RPR Titer Obj: General: Patient is alert and oriented x 3. In no acute distress. Anxious and tearful. States " I feel sick and craving heroin. I feel like leaving but I don' t want to disappoint my family". Skin: Warm and dry ENT: +redness to both eyes, no visible exudate at this time. +PERRLA. Car: S1S2 Resp: CTA BL GI: soft, BS+, NT Ext: Full ROM, no edema. A/P: Withdrawal syndrome Will start Suboxone 2mg now and daily for symptom management. Continue to monitor clinically
--- NOTE | 2018-02-02 16:56 | PN ---
Psychiatric Progress Note Vital Signs: Vital Signs Period Temp Pulse Resp BP Sys/Zuniga Pulse Ox Last 24 Hr 97.9 F-98 F 95-99 17-20 104-119/70-84 Date of Session: 02/02/18 Chief Complaint:: Bravo about to sign out. HPI: Patient addressed Opioid and Cocaine dependence comorbid with Bipolar disorder. ROS: HTN,DM,Neuropathy. Current Medications: Active Medications Generic Name Dose Route Start Last Admin Trade Name Freq PRN Reason Stop Dose Admin Acetaminophen 650 mg 01/25/18 18:39 Tylenol - PO Q4H PRN FEVER Al Hydroxide/Mg Hydroxide 30 ml 01/25/18 18:39 Mylanta Oral Suspension - PO Q6H PRN DYSPEPSIA Albuterol Sulfate 2 puff 01/25/18 22:00 Ventolin Hfa Inhaler - IH Q6H PRN SHORTNESS OF BREATH Artificial Tears 1 drop 01/31/18 13:37 02/01/18 09:09 Artificial Tears OU 1 drp BID PRN Administration DRY EYES Aspirin 81 mg 01/26/18 10:00 02/02/18 10:44 Ecotrin - PO 81 mg DAILY CLEMENCIA Administration Baclofen 10 mg 01/26/18 12:42 01/31/18 21:11 Lioresal - PO 10 mg TID PRN Administration BACK PAIN Buprenorphine/Naloxone 1 each 02/03/18 10:00 Suboxone 2mg/0.5mg Sl Film - SL DAILY CLEMENCIA Citalopram Hydrobromide 20 mg 01/27/18 10:00 02/02/18 10:44 Celexa - PO 20 mg DAILY CLEMENCIA Administration Eucalyptus/Menthol/Phenol/Sorbitol 1 each 01/25/18 18:39 Cepastat Lozenge - MM Q4H PRN SORE THROAT Gabapentin 300 mg 01/25/18 22:00 02/02/18 14:40 Neurontin - PO Not Given TID CLEMENCIA Guaifenesin 10 ml 01/25/18 18:39 Robitussin Dm - PO Q6H PRN COUGH Hydroxyzine Pamoate 50 mg 01/25/18 18:39 02/01/18 21:07 Vistaril - PO 50 mg Q4H PRN Administration AGITATION Ibuprofen 400 mg 01/25/18 18:39 Motrin - PO Q6H PRN PAIN LEVEL 4-6 Insulin Aspart 1 vial 01/26/18 07:00 02/02/18 07:36 Novolog Vial Sliding Scale - SQ Not Given BIDAC [facility], [facility] Protocol Insulin Detemir 25 units 01/25/18 22:00 02/01/18 22:04 Levemir Vial SQ 25 unit HS CLEMENCIA Administration Lisinopril 5 mg 01/26/18 10:00 02/02/18 10:44 Prinivil PO 5 mg DAILY CLEMENCIA Administration Loperamide HCl 4 mg 01/25/18 18:39 Imodium - PO Q6H PRN DIARRHEA Magnesium Citrate 300 ml 01/25/18 18:39 Citroma - PO Q48H PRN CONSTIPATION Magnesium Hydroxide 30 ml 01/25/18 18:39 Milk Of Magnesia - PO DAILY PRN CONSTIPATION Melatonin 5 mg 01/25/18 22:00 01/30/18 21:11 Melatonin PO 5 mg HS PRN Administration INSOMNIA Mirtazapine 15 mg 02/02/18 22:00 Remeron - PO HS [facility] Nicotine 21 mg 01/26/18 10:00 02/02/18 10:44 Nicoderm Patch - TD 21 mg DAILY [facility] Administration Nicotine Polacrilex 4 mg 01/25/18 18:39 01/30/18 17:02 Nicorette Gum - BC 4 mg Q2H PRN Administration NICOTINE REPLACEMENT RX Non-Formulary Medication 1 drop 02/02/18 06:00 02/02/18 12:16 Ketorolac Tromethamine [Ketorolac Tromethamine] OS 1 drop Q6HPO CLEMENCIA Administration Non-Formulary Medication 1 drop 02/02/18 15:00 02/02/18 15:20 Gentamicin Sulfate [Gentamicin Sulfate] OU 1 drop Q3H5XD CLEMENCIA Administration Multivit/Folic Acid/Iron 1 tab 01/26/18 10:00 02/02/18 10:44 Vitamins (Sjr) - PO 1 tab DAILY [facility] Administration Pseudoephedrine/Triprolidine 1 combo 01/25/18 18:39 Actifed - PO TID PRN NASAL CONGESTION Quetiapine Fumarate 25 mg 02/02/18 11:00 02/02/18 14:40 Seroquel - PO Not Given TID@1000,1400,1800 [facility] Quetiapine Fumarate 400 mg/ 450 mg 02/02/18 22:00 Quetiapine Fumarate 50 mg PO HS CLEMENCIA Ranitidine HCl 150 mg 05/24/18 22:00 02/02/18 10:44 Zantac - PO 150 mg BID CLEMENCIA Administration Thiamine HCl 100 mg 01/25/18 22:00 02/01/18 21:05 Vitamin B1 - PO 100 mg HS CLEMENCIA Administration Current Side Effect: No Lab tests ordered: No Lab tests reviewed: Yes Provider note:: Patient was seen in my office after her case has been discussed with the team on the morning report.She reports that she is withdrawing from opiates and her condition is unbearable.She is very shacky,restless,nervious with abdominal cramps,muscle spasms and nausea.patient is requesting to see a medical doctor for Suboxone or Methadone and also wants to mange her ongoing nerviousness and mood instability.Patient reports that she is about to leave inpatient treatment since her doctor was prescribing her Lorazepam and Ambien which we are not able to provide her in inpatient rehab. Add remeron 15 mg po hs,Seroquel 200 mg po hs will be adjusted to 400 mg po hs will be adjusted to 450 mg po hs and seroquel 25 mg po tid will be added.Consider Suboxone maintenance(referred for medical consult). Total face to face time:: 45 Mental Status Exam - Mental Status Exam Alert and Oriented to: Time, Place, Person Cognitive Function: Grossly Intact Patient Appearance: Unkempt Mood: Anxious, Apprehensive, Expansive, Irritable Affect: Mood Congruent, Labile Patient Behavior: Restless, Distractible, Impulsive, Talkative Speech Pattern: Clear, Excessive Thought Process: Goal Oriented Thought Disorder: Not Present Hallucinations: Denies Suicidal Ideation: Denies Homicidal Ideation: Denies Insight/Judgement: Fair Sleep: Difficulty falling asleep Appetite: Fair Muscle strength/Tone: Normal Gait/Station: Normal Psychiatric Treatment Plan - Problem List (1) Cannabis dependence Current Visit: Yes (2) Nicotine dependence Current Visit: Yes Qualifiers: Nicotine product type: cigarettes Substance use status: in withdrawal Qualified Code(s): F17.213 - Nicotine dependence, cigarettes, with withdrawal (3) Asthma Current Visit: Yes Qualifiers: Asthma severity: mild Asthma persistence: unspecified Asthma complication type: with status asthmaticus Qualified Code(s): J45.902 - Unspecified asthma with status asthmaticus (4) Back pain Current Visit: Yes Qualifiers: Back pain location: low back pain (5) Bipolar disorder Current Visit: Yes (6) Opioid dependence Current Visit: Yes (7) Hypercholesteremia Current Visit: Yes (8) Hypertension Current Visit: Yes Qualifiers: Hypertension type: essential hypertension Qualified Code(s): I10 - Essential (primary) hypertension (9) Insulin dependent diabetes mellitus Current Visit: Yes (10) Neuropathy of right lower extremity Current Visit: Yes
[2018-02-02] MEDS ORDERED: COLLOIDAL OATMEAL 1 BAR EACH TP PRN (17:16)
[2018-02-02] MEDS ORDERED: QUEtiapine FUMARATE 400 MG TABLET ONE (20:17)
[2018-02-02] MEDS ORDERED: QUEtiapine FUMARATE 50 MG TABLET ONE (20:18)
[2018-02-02] MEDS: QUETIAPINE FUMARATE PO SCH (21:07)
[2018-02-02] MEDS: MIRTAZAPINE 15 MG TABLET (FP) PO SCH (21:08)
[2018-02-02] MEDS: THIAMINE HCL 100 MG TABLET (FP) PO SCH (21:08)
[2018-02-02] MEDS: INSULIN (LEVEMIR) 100 UNITS/ML UNITS SQ SCH (21:09)
[2018-02-02] MEDS ORDERED: QUEtiapine FUMARATE 300 MG TABLET PO SCH (22:00)
[2018-02-03] MEDS ORDERED: PT OWN MED DRAWER 7, Y5N ONE ×2 (03:15→17:01)
[2018-02-03] MEDS: GABAPENTIN 300 MG CAPSULE (FP) PO SCH ×3 (06:41→21:09)
[2018-02-03] MEDS: INSULIN SLIDING SCALE (NOVOLOG) 1 VIAL SQ SCH ×2 (06:41→17:10)
[2018-02-03] MEDS: GENTAMICIN SULFATE OU SCH ×5 (06:43→18:41)
[2018-02-03] MEDS: NICOTINE 21 MG/24 HOURS TOPICAL PATCH TD SCH (09:49)
[2018-02-03] MEDS: ASPIRIN COATED 81 MG TABLET.EC PO SCH (09:49)
[2018-02-03] MEDS: CITALOPRAM HYDROBROMIDE 20 MG TABLET (FP) PO SCH (09:49)
[2018-02-03] MEDS: PRENATAL VITAMINS W/ FOLIC ACID TABLET (FP) PO SCH (09:50)
[2018-02-03] MEDS: RANITIDINE HCL 150 MG TABLET (FP) PO SCH ×2 (09:50→21:10)
[2018-02-03] MEDS: LISINOPRIL 5 MG TABLET (FP) PO SCH (09:50)
[2018-02-03] MEDS: BUPRENORPHINE/NALOXONE 2 MG/0.5 MG FILM PACKET SL SCH (09:50)
[2018-02-03] MEDS: QUEtiapine FUMARATE 25 MG TABLET (FP) PO SCH ×3 (09:50→18:42)
[2018-02-03] MEDS: BACLOFEN 10 MG TABLET (FP) PO PRN (13:02)
[2018-02-03] MEDS ORDERED: QUEtiapine FUMARATE 400 MG TABLET ONE (19:41)
[2018-02-03] MEDS ORDERED: QUEtiapine FUMARATE 50 MG TABLET ONE (19:42)
[2018-02-03] MEDS ORDERED: SENNOSIDES 8.6MG TABLET (FP) PO PRN (19:55)
[2018-02-03] MEDS ORDERED: GLYCERIN 1 RECTAL SUPPOSITORY, ADULT RC PRN (19:55)
--- NOTE | 2018-02-03 19:56 | PN ---
S Progress Note Note: c/o of constipation with straining. Vital Signs Temperature 97.4 F L 02/03/18 07:10 Pulse Rate 90 02/03/18 09:05 Respiratory Rate 16 02/03/18 09:05 Blood Pressure 103/67 02/03/18 09:05 O2 Sat by Pulse Oximetry (%) Laboratory Last Values WBC 8.1 K/mm3 (4.0-10.0) 01/26/18 07:50 RBC 4.60 M/mm3 (3.60-5.2) 01/26/18 07:50 Hgb 14.5 GM/dL (10.7-15.3) 01/26/18 07:50 Hct 43.4 % (32.4-45.2) 01/26/18 07:50 MCV 94.4 fl (80-96) 01/26/18 07:50 MCH 31.5 pg (25.7-33.7) 01/26/18 07:50 MCHC 33.4 g/dl (32.0-36.0) 01/26/18 07:50 RDW 14.0 % (11.6-15.6) 01/26/18 07:50 Plt Count 221 K/MM3 (134-434) 01/26/18 07:50 MPV 8.9 fl (7.5-11.1) 01/26/18 07:50 Sodium 143 mmol/L (136-145) 01/26/18 07:50 Potassium 4.1 mmol/L (3.5-5.1) 01/26/18 07:50 Chloride 111 mmol/L (98-107) H 01/26/18 07:50 Carbon Dioxide 27 mmol/L (21-32) 01/26/18 07:50 Anion Gap 5 (8-16) L 01/26/18 07:50 BUN 15 mg/dL (7-18) 01/26/18 07:50 Creatinine 0.9 mg/dL (0.55-1.02) 01/26/18 07:50 Creat Clearance w eGFR > 60 (>60) 01/26/18 07:50 POC Glucometer 100 UNITS (80-120) 02/03/18 17:09 Random Glucose 93 mg/dL (74-106) 01/26/18 07:50 Calcium 8.9 mg/dL (8.5-10.1) 01/26/18 07:50 Total Bilirubin 0.2 mg/dL (0.2-1.0) 01/26/18 07:50 AST 14 U/L (15-37) L 01/26/18 07:50 ALT 20 U/L (12-78) 01/26/18 07:50 Alkaline Phosphatase 116 U/L (45-117) 01/26/18 07:50 Total Protein 6.1 g/dl (6.4-8.2) L 01/26/18 07:50 Albumin 3.1 g/dl (3.4-5.0) L 01/26/18 07:50 Urine Color Yellow 01/26/18 10:00 Urine Appearance Clear 01/26/18 10:00 Urine pH 5.0 (5.0-8.0) 01/26/18 10:00 Ur Specific [place] 1.014 (1.001-1.035) 01/26/18 10:00 Urine Protein Negative (NEGATIVE) 01/26/18 10:00 Urine Glucose (UA) Negative (NEGATIVE) 01/26/18 10:00 Urine Ketones Negative (NEGATIVE) 01/26/18 10:00 Urine Blood Negative (NEGATIVE) 01/26/18 10:00 Urine Nitrite Negative (NEGATIVE) 01/26/18 10:00 Urine Bilirubin Negative (<2.0 mg/dL) 01/26/18 10:00 Urine Urobilinogen Negative mg/dL (0.2-1.0) 01/26/18 10:00 Ur Leukocyte Esterase Negative (NEGATIVE) 01/26/18 10:00 RPR Titer Nonreactive (NONREACTIVE) 01/26/18 07:50 glycerin suppository PRN senna 2 tabs QHS increase fluids Continue to monitor
[2018-02-03] MEDS: INSULIN (LEVEMIR) 100 UNITS/ML UNITS SQ SCH (21:08)
[2018-02-03] MEDS: THIAMINE HCL 100 MG TABLET (FP) PO SCH (21:09)
[2018-02-03] MEDS: QUETIAPINE FUMARATE PO SCH (21:10)
[2018-02-03] MEDS: MIRTAZAPINE 15 MG TABLET (FP) PO SCH (21:10)
[2018-02-04] MEDS: GABAPENTIN 300 MG CAPSULE (FP) PO SCH ×3 (06:42→21:16)
[2018-02-04] MEDS: GENTAMICIN SULFATE OU SCH ×5 (06:42→17:52)
[2018-02-04] MEDS: INSULIN SLIDING SCALE (NOVOLOG) 1 VIAL SQ SCH ×2 (06:43→17:03)
[2018-02-04] MEDS: CITALOPRAM HYDROBROMIDE 20 MG TABLET (FP) PO SCH (10:12)
[2018-02-04] MEDS: ASPIRIN COATED 81 MG TABLET.EC PO SCH (10:12)
[2018-02-04] MEDS: NICOTINE 21 MG/24 HOURS TOPICAL PATCH TD SCH (10:13)
[2018-02-04] MEDS: PRENATAL VITAMINS W/ FOLIC ACID TABLET (FP) PO SCH (10:13)
[2018-02-04] MEDS: QUEtiapine FUMARATE 25 MG TABLET (FP) PO SCH ×3 (10:13→17:51)
[2018-02-04] MEDS: LISINOPRIL 5 MG TABLET (FP) PO SCH (10:13)
[2018-02-04] MEDS: RANITIDINE HCL 150 MG TABLET (FP) PO SCH ×2 (10:13→21:16)
[2018-02-04] MEDS: BUPRENORPHINE/NALOXONE 2 MG/0.5 MG FILM PACKET SL SCH (10:14)
[2018-02-04] MEDS: BACLOFEN 10 MG TABLET (FP) PO PRN ×2 (10:15→21:18)
[2018-02-04] MEDS ORDERED: PT OWN MED DRAWER 7, Y5N ONE ×3 (13:14→17:53)
[2018-02-04] MEDS: ARTIFICIAL TEARS (POLYVINYL ALCOHOL 1.4%) OPTH DROPS OU PRN (17:54)
[2018-02-04] MEDS ORDERED: QUEtiapine FUMARATE 400 MG TABLET ONE (20:32)
[2018-02-04] MEDS ORDERED: QUEtiapine FUMARATE 50 MG TABLET ONE (20:33)
[2018-02-04] MEDS: QUETIAPINE FUMARATE PO SCH (21:15)
[2018-02-04] MEDS: MIRTAZAPINE 15 MG TABLET (FP) PO SCH (21:16)
[2018-02-04] MEDS: THIAMINE HCL 100 MG TABLET (FP) PO SCH (21:16)
[2018-02-04] MEDS: MELATONIN 5 MG TABLETS PO PRN (21:17)
[2018-02-04] MEDS: INSULIN (LEVEMIR) 100 UNITS/ML UNITS SQ SCH (21:25)
[2018-02-05] MEDS: INSULIN SLIDING SCALE (NOVOLOG) 1 VIAL SQ SCH ×2 (06:27→17:09)
[2018-02-05] MEDS: GENTAMICIN SULFATE OU SCH ×5 (06:28→17:12)
[2018-02-05] MEDS: GABAPENTIN 300 MG CAPSULE (FP) PO SCH ×3 (06:28→21:21)
[2018-02-05] MEDS: ARTIFICIAL TEARS (POLYVINYL ALCOHOL 1.4%) OPTH DROPS OU PRN (06:29)
[2018-02-05] MEDS ORDERED: PT OWN MED DRAWER 7, Y5N ONE ×3 (08:48→12:11)
[2018-02-05] MEDS: RANITIDINE HCL 150 MG TABLET (FP) PO SCH ×2 (09:57→21:20)
[2018-02-05] MEDS: BUPRENORPHINE/NALOXONE 2 MG/0.5 MG FILM PACKET SL SCH (09:57)
[2018-02-05] MEDS: PRENATAL VITAMINS W/ FOLIC ACID TABLET (FP) PO SCH (09:58)
[2018-02-05] MEDS: QUEtiapine FUMARATE 25 MG TABLET (FP) PO SCH ×3 (09:58→17:09)
[2018-02-05] MEDS: LISINOPRIL 5 MG TABLET (FP) PO SCH (09:58)
[2018-02-05] MEDS: CITALOPRAM HYDROBROMIDE 20 MG TABLET (FP) PO SCH (09:58)
[2018-02-05] MEDS: ASPIRIN COATED 81 MG TABLET.EC PO SCH (09:58)
[2018-02-05] MEDS: NICOTINE 21 MG/24 HOURS TOPICAL PATCH TD SCH (10:01)
--- NOTE | 2018-02-05 11:50 | PN ---
S Progress Note Note: feel dizzy,vertigo like, Vital Signs Temperature 97.6 F 02/05/18 09:25 Pulse Rate 91 H 02/05/18 09:30 Respiratory Rate 18 02/05/18 09:25 Blood Pressure 108/75 02/05/18 09:30 O2 Sat by Pulse Oximetry (%) Laboratory Last Values WBC 8.1 K/mm3 (4.0-10.0) 01/26/18 07:50 RBC 4.60 M/mm3 (3.60-5.2) 01/26/18 07:50 Hgb 14.5 GM/dL (10.7-15.3) 01/26/18 07:50 Hct 43.4 % (32.4-45.2) 01/26/18 07:50 MCV 94.4 fl (80-96) 01/26/18 07:50 MCH 31.5 pg (25.7-33.7) 01/26/18 07:50 MCHC 33.4 g/dl (32.0-36.0) 01/26/18 07:50 RDW 14.0 % (11.6-15.6) 01/26/18 07:50 Plt Count 221 K/MM3 (134-434) 01/26/18 07:50 MPV 8.9 fl (7.5-11.1) 01/26/18 07:50 Sodium 143 mmol/L (136-145) 01/26/18 07:50 Potassium 4.1 mmol/L (3.5-5.1) 01/26/18 07:50 Chloride 111 mmol/L (98-107) H 01/26/18 07:50 Carbon Dioxide 27 mmol/L (21-32) 01/26/18 07:50 Anion Gap 5 (8-16) L 01/26/18 07:50 BUN 15 mg/dL (7-18) 01/26/18 07:50 Creatinine 0.9 mg/dL (0.55-1.02) 01/26/18 07:50 Creat Clearance w eGFR > 60 (>60) 01/26/18 07:50 POC Glucometer 128 UNITS (80-120) 02/05/18 09:17 Random Glucose 93 mg/dL (74-106) 01/26/18 07:50 Calcium 8.9 mg/dL (8.5-10.1) 01/26/18 07:50 Total Bilirubin 0.2 mg/dL (0.2-1.0) 01/26/18 07:50 AST 14 U/L (15-37) L 01/26/18 07:50 ALT 20 U/L (12-78) 01/26/18 07:50 Alkaline Phosphatase 116 U/L (45-117) 01/26/18 07:50 Total Protein 6.1 g/dl (6.4-8.2) L 01/26/18 07:50 Albumin 3.1 g/dl (3.4-5.0) L 01/26/18 07:50 Urine Color Yellow 01/26/18 10:00 Urine Appearance Clear 01/26/18 10:00 Urine pH 5.0 (5.0-8.0) 01/26/18 10:00 Ur Specific [place] 1.014 (1.001-1.035) 01/26/18 10:00 Urine Protein Negative (NEGATIVE) 01/26/18 10:00 Urine Glucose (UA) Negative (NEGATIVE) 01/26/18 10:00 Urine Ketones Negative (NEGATIVE) 01/26/18 10:00 Urine Blood Negative (NEGATIVE) 01/26/18 10:00 Urine Nitrite Negative (NEGATIVE) 01/26/18 10:00 Urine Bilirubin Negative (<2.0 mg/dL) 01/26/18 10:00 Urine Urobilinogen Negative mg/dL (0.2-1.0) 01/26/18 10:00 Ur Leukocyte Esterase Negative (NEGATIVE) 01/26/18 10:00 RPR Titer Nonreactive (NONREACTIVE) 01/26/18 07:50 bgm 128 antivert 12.5 mgs po tid close monitoring
[2018-02-05] MEDS: MECLIZINE HCL 12.5 MG TABLET PO PRN (12:58)
[2018-02-05] MEDS ORDERED: QUEtiapine FUMARATE 400 MG TABLET ONE (19:16)
[2018-02-05] MEDS ORDERED: QUEtiapine FUMARATE 50 MG TABLET ONE (19:16)
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
[2018-02-05] MEDS: THIAMINE HCL 100 MG TABLET (FP) PO SCH (21:20)
[2018-02-05] MEDS: QUETIAPINE FUMARATE PO SCH (21:21)
[2018-02-05] MEDS: MIRTAZAPINE 15 MG TABLET (FP) PO SCH (21:21)
[2018-02-05] MEDS: BACLOFEN 10 MG TABLET (FP) PO PRN (21:23)
[2018-02-05] MEDS: INSULIN (LEVEMIR) 100 UNITS/ML UNITS SQ SCH (21:25)
[2018-02-06] MEDS ORDERED: PT OWN MED DRAWER 7, Y5N ONE ×4 (05:51→10:51)
[2018-02-06] MEDS: GABAPENTIN 300 MG CAPSULE (FP) PO SCH ×2 (06:48→15:13)
[2018-02-06] MEDS: MECLIZINE HCL 12.5 MG TABLET PO PRN (06:48)
[2018-02-06] MEDS: GENTAMICIN SULFATE OU SCH ×4 (06:50→15:13)
[2018-02-06] MEDS: INSULIN SLIDING SCALE (NOVOLOG) 1 VIAL SQ SCH (06:53)
[2018-02-06] MEDS: QUEtiapine FUMARATE 25 MG TABLET (FP) PO SCH ×2 (09:58→15:13)
[2018-02-06] MEDS: CITALOPRAM HYDROBROMIDE 20 MG TABLET (FP) PO SCH (09:58)
[2018-02-06] MEDS: RANITIDINE HCL 150 MG TABLET (FP) PO SCH (09:59)
[2018-02-06] MEDS: PRENATAL VITAMINS W/ FOLIC ACID TABLET (FP) PO SCH (09:59)
[2018-02-06] MEDS: LISINOPRIL 5 MG TABLET (FP) PO SCH (09:59)
[2018-02-06] MEDS: BUPRENORPHINE/NALOXONE 2 MG/0.5 MG FILM PACKET SL SCH (09:59)
[2018-02-06] MEDS: NICOTINE 21 MG/24 HOURS TOPICAL PATCH TD SCH (10:00)
[2018-02-06] MEDS: ASPIRIN COATED 81 MG TABLET.EC PO SCH (10:01)
[2018-02-06] MEDS: ARTIFICIAL TEARS (POLYVINYL ALCOHOL 1.4%) OPTH DROPS OU PRN (10:11)
[2018-02-06 11:35] VITALS: BP 123/79; PULSE 98; TEMP 98.2
--- NOTE | 2018-02-06 11:50 | PN ---
Psychiatric Progress Note Vital Signs: Vital Signs Period Temp Pulse Resp BP Sys/Zuniga Pulse Ox Last 24 Hr 97.7 F-98.2 F 82-98 17-18 90-146/67-79 Date of Session: 02/06/18 Chief Complaint:: Discharge Note HPI: Patient addressing Opioid and Cannabis Dependence comorbid with Nicotine Dependence and Bipolar Disorder ROS: Asthma, Back pain, HTN, HLD, IDDM, Neuropathy Current Medications: Active Medications Generic Name Dose Route Start Last Admin Trade Name Freq PRN Reason Stop Dose Admin Acetaminophen 650 mg 01/25/18 18:39 Tylenol - PO Q4H PRN FEVER Al Hydroxide/Mg Hydroxide 30 ml 01/25/18 18:39 Mylanta Oral Suspension - PO Q6H PRN DYSPEPSIA Albuterol Sulfate 2 puff 01/25/18 22:00 Ventolin Hfa Inhaler - IH Q6H PRN SHORTNESS OF BREATH Artificial Tears 1 drop 01/31/18 13:37 02/06/18 10:11 Artificial Tears OU 1 drp BID PRN Administration DRY EYES Aspirin 81 mg 01/26/18 10:00 02/06/18 10:01 Ecotrin - PO 81 mg DAILY CLEMENCIA Administration Baclofen 10 mg 01/26/18 12:42 02/05/18 21:23 Lioresal - PO 10 mg TID PRN Administration BACK PAIN Buprenorphine/Naloxone 1 each 02/03/18 10:00 02/06/18 09:59 Suboxone 2mg/0.5mg Sl Film - SL 1 each DAILY CLEMENCIA Administration Citalopram Hydrobromide 20 mg 01/27/18 10:00 02/06/18 09:58 Celexa - PO 20 mg DAILY CLEMENCIA Administration Colloidal Oatmeal 1 applic 02/02/18 17:16 02/02/18 17:43 Aveeno Soap - TP 1 applic DAILY PRN Administration HYGEINE Eucalyptus/Menthol/Phenol/Sorbitol 1 each 01/25/18 18:39 Cepastat Lozenge - MM Q4H PRN SORE THROAT Gabapentin 300 mg 01/25/18 22:00 02/06/18 06:48 Neurontin - PO 300 mg TID CLEMENCIA Administration Glycerin 1 each 02/03/18 19:55 Glycerin Suppository Adult - RC DAILY PRN CONSTIPATION Guaifenesin 10 ml 01/25/18 18:39 Robitussin Dm - PO Q6H PRN COUGH Hydroxyzine Pamoate 50 mg 01/25/18 18:39 02/01/18 21:07 Vistaril - PO 50 mg Q4H PRN Administration AGITATION Ibuprofen 400 mg 01/25/18 18:39 Motrin - PO Q6H PRN PAIN LEVEL 4-6 Insulin Aspart 1 vial 01/26/18 07:00 02/06/18 06:53 Novolog Vial Sliding Scale - SQ Not Given BIDAC [facility] Protocol Insulin Detemir 25 units 01/25/18 22:00 02/05/18 21:25 Levemir Vial SQ Not Given HS [facility] Lisinopril 5 mg 01/26/18 10:00 02/06/18 09:59 Prinivil PO Not Given DAILY [facility] Loperamide HCl 4 mg 01/25/18 18:39 Imodium - PO Q6H PRN DIARRHEA Magnesium Citrate 300 ml 01/25/18 18:39 Citroma - PO Q48H PRN CONSTIPATION Magnesium Hydroxide 30 ml 01/25/18 18:39 Milk Of Magnesia - PO DAILY PRN CONSTIPATION Meclizine HCl 12.5 mg 02/05/18 11:47 02/06/18 06:48 Antivert - PO 12.5 mg TID PRN Administration VERTIGO Melatonin 5 mg 01/25/18 22:00 02/04/18 21:17 Melatonin PO 5 mg HS PRN Administration INSOMNIA Mirtazapine 15 mg 02/02/18 22:00 02/05/18 21:21 Remeron - PO 15 mg HS [facility] Administration Nicotine 21 mg 01/26/18 10:00 02/06/18 10:00 Nicoderm Patch - TD 21 mg DAILY CLEMENCIA Administration Nicotine Polacrilex 4 mg 01/25/18 18:39 01/30/18 17:02 Nicorette Gum - BC 4 mg Q2H PRN Administration NICOTINE REPLACEMENT RX Non-Formulary Medication 1 drop 02/02/18 06:00 02/06/18 06:50 Ketorolac Tromethamine [Ketorolac Tromethamine] OS Not Given Q6HPO CLEMENCIA Non-Formulary Medication 1 drop 02/02/18 15:00 02/06/18 09:57 Gentamicin Sulfate [Gentamicin Sulfate] OU 1 drop Q3H5XD CLEMENCIA Administration Multivit/Folic Acid/Iron 1 tab 01/26/18 10:00 02/06/18 09:59 Vitamins (Sjr) - PO 1 tab DAILY CLEMENCIA Administration Pseudoephedrine/Triprolidine 1 combo 01/25/18 18:39 Actifed - PO TID PRN NASAL CONGESTION Quetiapine Fumarate 25 mg 02/02/18 11:00 02/06/18 09:58 Seroquel - PO 25 mg TID@1000,1400,1800 CLEMENCIA Administration Quetiapine Fumarate 400 mg/ 450 mg 02/02/18 22:00 02/05/18 21:21 Quetiapine Fumarate 50 mg PO 450 mg HS CLEMENCIA Administration Ranitidine HCl 150 mg 01/25/18 22:00 02/06/18 09:59 Zantac - PO 150 mg BID CLEMENCIA Administration Senna 2 tab 02/03/18 19:55 Senna - PO HS PRN CONSTIPATION Thiamine HCl 100 mg 01/25/18 22:00 02/05/18 21:20 Vitamin B1 - PO 100 mg HS CLEMENCIA Administration Current Side Effect: No Lab tests ordered: Yes Lab tests reviewed: Yes Provider note:: Patient has completed this program today. She has partially met her treatment goals and will continue to address her issues in outpatient treatment at [facility]. 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 She responded well to Seroquel Celexa and Trazadone. Scripts for 30 days supply of these medications are electronically transmitted to [facility] at [address] [place] [address]. She is stable for discharge today Total face to face time:: 35 Psychiatric Treatment Plan - Problem List (1) Opioid dependence Current Visit: Yes (2) Cannabis dependence Current Visit: Yes (3) Nicotine dependence Current Visit: Yes Qualifiers: Nicotine product type: cigarettes Substance use status: in withdrawal Qualified Code(s): F17.213 - Nicotine dependence, cigarettes, with withdrawal (4) Bipolar disorder Current Visit: Yes (5) Asthma Current Visit: Yes Qualifiers: Asthma severity: mild Asthma persistence: unspecified Asthma complication type: with status asthmaticus Qualified Code(s): J45.902 - Unspecified asthma with status asthmaticus (6) Back pain Current Visit: Yes Qualifiers: Back pain location: low back pain (7) Hypercholesteremia Current Visit: Yes (8) Hypertension Current Visit: Yes Qualifiers: Hypertension type: essential hypertension Qualified Code(s): I10 - Essential (primary) hypertension (9) Insulin dependent diabetes mellitus Current Visit: Yes (10) Neuropathy of right lower extremity Current Visit: Yes Initial treatment plan: Patient is discharged today and referred to [facility] for outpatient treatment
--- NOTE | 2018-02-06 13:03 | PN ---
Luciana Progress Note Note: patient is medically stable to be discharge,ambulation without difficulty,has all medication at home will follow up with her family doctor e prescription gentamycin oph 2 gtt left eye qid,
[2018-02-06] MEDS ORDERED: GENTAMICIN SULFATE 0.3% OPHTHALMIC (EYE DROPS) 5ML BOTTLE OS SCH (14:00)
== END 2018-02-06 13:02 | disposition home or self-care (01) | DRG 895 ==
LOC: YASAS 12:40 → Y6N 19:03 → Y3E 01-30 10:58
PROVIDERS: ADMIT Psychiatry & Neurology Psychiatry; ATTEND Psychiatry & Neurology Psychiatry
PROC: HZ2ZZZZ Detoxification Services for Substance Abuse Treatment (ICD-10-PCS; principal; 2018-01-25)
PROC: HZ42ZZZ Group Counseling for Substance Abuse Treatment, Cognitive-Behavioral (ICD-10-PCS; 2018-01-30)
DX: F19.230 Other psychoactive substance dependence with withdrawal, uncomplicated (principal); J45.902 Unspecified asthma with status asthmaticus; F11.23 Opioid dependence with withdrawal; F12.20 Cannabis dependence, uncomplicated; F17.213 Nicotine dependence, cigarettes, with withdrawal; F31.9 Bipolar disorder, unspecified; I10 Essential (primary) hypertension; E11.9 Type 2 diabetes mellitus without complications; G62.9 Polyneuropathy, unspecified; G47.00 Insomnia, unspecified; K21.9 Gastro-esophageal reflux disease without esophagitis; M54.5 Low back pain; E78.00 Pure hypercholesterolemia, unspecified; R55 Syncope and collapse; K59.00 Constipation, unspecified; H10.9 Unspecified conjunctivitis; Z79.4 Long term (current) use of insulin; Z90.710 Acquired absence of both cervix and uterus
CPT/HCPCS: 36415; 71045-TC-FY; 80053; 81003; 82962; 85027; 86593; 93005; 93010; J0475

== ENCOUNTER 2018-02-01 16:23 | Emergency (ER) | payer OTHER ==
--- NOTE | 2018-02-01 16:40 | PDOC ---
Rapid Medical Evaluation Time Seen by Provider: 02/01/18 16:35 Medical Evaluation: Allergies Allergy/AdvReac Type Severity Reaction Status Date / Time strawberry AdvReac Hives Verified 01/25/18 15:46 I have performed a brief in-person evaluation of this patient. The patient presents with a chief complaint of: left eye redness, itchiness and discharge today. Here from [address] [place] [address] for heroin detox. Also admits she is withdrawing Pertinent physical exam findings: injected eyes b/l, L worse than right, tachycardic I have ordered the following: labs The patient will proceed to the ED for further evaluation. Discharge Disposition - Diagnosis Opioid dependence with withdrawal, Conjunctivitis - Referrals - Patient Instructions - Post Discharge Activity
[2018-02-01 16:41] VITALS: BP 101/77; PULSE 105; TEMP 98.2; BMI 25.7
[2018-02-01 17:06] LABS: BASO % 0.6 % (0-2.0); EOS % 1.5 % (0-4.5); HEMATOCRIT 44.8 % (32.4-45.2); HEMOGLOBIN 14.8 GM/dL (10.7-15.3); LYMPH % 27.8 % (8-40); MCHC 33.1 g/dl (32.0-36.0); MEAN CELL VOLUME 93.7 fl (80-96); MEAN PLT VOLUME 8.8 fl (7.5-11.1); MONO % 7.4 % (3.8-10.2); NEUT % 62.7 % (42.8-82.8); PLATELET COUNT 229 K/MM3 (134-434); RBC 4.78 M/mm3 (3.60-5.2); RDW 14.3 % (11.6-15.6)
[2018-02-01 17:37] LABS: ALBUMIN 3.7 g/dl (3.4-5.0); ALK PHOS 153 U/L (45-117); ANION GAP 7 (8-16); BILIRUBIN,TOTAL 0.2 mg/dL (0.2-1.0); BLOOD UREA NITROGEN 23 mg/dL (7-18); CALCIUM 10.1 mg/dL (8.5-10.1); CHLORIDE 106 mmol/L (98-107); CO2 28 mmol/L (21-32); CREATININE 0.8 mg/dL (0.55-1.02); GLUCOSE,RANDOM 157 mg/dL (74-106); POTASSIUM 4.8 mmol/L (3.5-5.1); SGOT/AST 78 U/L (15-37); SGPT/ALT 132 U/L (12-78); SODIUM 141 mmol/L (136-145); TOT PROT 7.4 g/dl (6.4-8.2)
--- NOTE | 2018-02-01 17:44 | PDOC ---
History of Present Illness - General Chief Complaint: Tremors Stated Complaint: EYE PROBLEM Time Seen by Provider: 02/01/18 16:35 - History of Present Illness Initial Comments: 02/01/18 17:44 Ms. Nicholson is a 57 yo female w/ pmh of DM, HTN, bipolar disorder, asthma, depression, and heroin abuse (1-2 bags per day until last week, denies IVDU) who presents for evaluation of 2 day history of left eye pain and redness. She reports that she has additionally had yellow fluid coming out from the medial side and that it is 10/10 painful. The patient denies chest pain, shortness of breath, headache and dizziness. Denies fever, chills, nausea, vomit, diarrhea and constipation. Denies dysuria, frequency, urgency and hematuria. Allergies: NKDA Past History - Past Medical History Allergies/Adverse Reactions: Allergies Allergy/AdvReac Type Severity Reaction Status Date / Time strawberry AdvReac Hives Verified 02/01/18 16:41 Home Medications: Ambulatory Orders Aspirin [Aspirin EC] 81 mg PO DAILY 01/25/18 Citalopram Hydrobromide [Citalopram HBr] 20 mg PO DAILY 01/25/18 Famotidine [Pepcid -] 40 mg PO HS 01/25/18 Hydroxyzine HCl 25 mg PO Q8H 01/25/18 Insulin (LOG) Aspart [NovoLOG -] See Protocol SQ QID 01/25/18 Insulin Glargine,Hum.rec.anlog [Lantus] 25 units SQ HS 01/25/18 Omeprazole 20 mg PO HS 01/25/18 Quetiapine Fumarate [Seroquel -] 400 mg PO HS 01/25/18 Albuterol Sulfate Inhaler - [Ventolin HFA Inhaler -] 1 - 2 inh PO QID #1 inhaler 01/30/18 Gabapentin [Neurontin -] 300 mg PO Q8H #60 capsule 01/30/18 Lisinopril 5 mg PO DAILY #30 tablet 01/30/18 Anemia: No Asthma: Yes (ON MEDICATION) Cancer: No Cardiac Disorders: Yes (Mini Stroke in 2011) CVA: No COPD: No CHF: No Dementia: No Diabetes: Yes GI Disorders: Yes (GERD) Disorders: No HTN: Yes (ON MEDICATION) Hypercholesterolemia: No Kidney Stones: No Liver Disease: No Seizures: No Thyroid Disease: No - Surgical History Abdominal Surgery: Yes Appendectomy: No Cardiac Surgery: No Cholecystectomy: No Lung Surgery: No Neurologic Surgery: No Orthopedic Surgery: No - Reproductive History PID: No - Suicide/Smoking/Psychosocial Hx Smoking History: Never smoked Have you smoked in the past 12 months: No Number of Cigarettes Smoked Daily: 4 Information on smoking cessation initiated: No 'Breaking Loose' booklet given: 01/25/18 Hx Alcohol Use: No Drug/Substance Use Hx: No Substance Use Type: Heroin Hx Substance Use Treatment: Yes (this is her first inpatient rehab,abstinence 8 years) Review of Systems - Review of Systems Comments:: 02/01/18 17:44 GENERAL/CONSTITUTIONAL: No fever or chills. No weakness. HEAD, EYES, EARS, NOSE AND THROAT: +Eye pain as described. Blurry vision for the past day. CARDIOVASCULAR: No chest pain or shortness of breath RESPIRATORY: No cough, wheezing, or hemoptysis. GASTROINTESTINAL: No nausea, vomiting, diarrhea or constipation. GENITOURINARY: No dysuria, frequency, or change in urination. MUSCULOSKELETAL: No joint or muscle swelling or pain. No neck or back pain. SKIN: No rash NEUROLOGIC: No headache, vertigo, loss of consciousness, or change in strength/ sensation. ENDOCRINE: No increased thirst. No abnormal weight change HEMATOLOGIC/LYMPHATIC: No anemia, easy bleeding, or history of blood clots. ALLERGIC/IMMUNOLOGIC: No hives or skin allergy. *Physical Exam - Vital Signs Last Vital Signs Temp Pulse Resp BP Pulse Ox 98.2 F 105 H 16 101/77 100 02/01/18 16:39 02/01/18 16:39 02/01/18 16:39 02/01/18 16:39 02/01/18 16:39 - Physical Exam Comments: 02/01/18 17:44 GENERAL: Awake, alert, and fully oriented, in no acute distress HEAD: No signs of trauma, normocephalic, atraumatic EYES: +Conjunctiva injected MAR[place], left eye chemosis noted, vision roughly 20/80 [place]. PERRLA, EOMI ENT: Auricles normal inspection, hearing grossly normal, nares patent, oropharynx clear without exudates. Moist mucosa NECK: Normal ROM, supple, no lymphadenopathy, JVD, or masses LUNGS: No distress, speaks full sentences, clear to auscultation bilaterally HEART: Regular rate and rhythm, normal S1 and S2, no murmurs, rubs or gallops, peripheral pulses normal and equal bilaterally. ABDOMEN: Soft, nontender, normoactive bowel sounds. No guarding, no rebound. No masses EXTREMITIES: Normal inspection, Normal range of motion, no edema. No clubbing or cyanosis. NEUROLOGICAL: Cranial nerves II through XII grossly intact. Normal speech, normal gait, no focal sensorimotor deficits SKIN: Warm, Dry, normal turgor, no rashes or lesions noted. ED Treatment Course - LABORATORY CBC & Chemistry Diagram: 02/01/18 16:59 02/01/18 16:59 - ADDITIONAL ORDERS Additional order review: Laboratory Results 02/01/18 16:59 Sodium 141 Potassium 4.8 Chloride 106 Carbon Dioxide 28 Anion Gap 7 L BUN 23 H Creatinine 0.8 Creat Clearance w eGFR > 60 Random Glucose 157 H Calcium 10.1 Total Bilirubin 0.2 AST 78 H ALT 132 H Alkaline Phosphatase 153 H Total Protein 7.4 Albumin 3.7 02/01/18 16:59 RBC 4.78 MCV 93.7 MCHC 33.1 RDW 14.3 MPV 8.8 Neutrophils % 62.7 Lymphocytes % 27.8 Monocytes % 7.4 Eosinophils % 1.5 Basophils % 0.6 Medical Decision Making - Medical Decision Making 02/01/18 18:12 Ms. Nicholson is a 57 yo female w/ pmh as described who presents for evaluation of eye pain. Discussed case with opthalmology who recommended Gentamicin drops every 2-3 hours for 1 week and outpatient follow-up. Will comply with recommendations. 02/01/18 18:27 Diclofenac drops also given for pain control. Discharging to home. *DC/Admit/Observation/Transfer Diagnosis at time of Disposition: Opioid dependence with withdrawal Conjunctivitis Qualifiers: Conjunctivitis type: unspecified Laterality: unspecified laterality Qualified Code(s): H10.9 - Unspecified conjunctivitis - Discharge Dispostion Disposition: HOME - Referrals Referrals: Zachery Park MD [Staff Physician] - - Patient Instructions Printed Discharge Instructions: DI for Eye Pain Additional Instructions: Please take eye drops 4 times per day for 1 week as discussed. Follow-up with ophthalmology at provided information for further evaluation. - Post Discharge Activity
--- NOTE | 2018-02-01 17:45 | PDOC ---
Attending Attestation - HPI HPI: 02/01/18 18:22 The patient is a 57 year old female, with a significant PMH of diabetes mellitus , hypertension, hyperlipidemia, bipolar disorder, asthma, depression and substance abuse (heroin, 1-2 bags per day until last week, denies IVDU) who presents to the emergency department from [facility] with 2 days of left eye pain. The patient describes the left eye pain as a burning sensation rated 10/10 and states she has noted yellow fluid from the left eye. The patient denies chest pain, shortness of breath, headache and dizziness. Denies fever, chills, nausea, vomit, diarrhea and constipation. Denies dysuria, frequency, urgency and hematuria. Allergies: strawberry Documentation prepared by Speedy Go, acting as director of medical education for Shannon Sahu MD. <Speedy Go - Last Filed: 02/01/18 18:22> - Resident Resident Name: RudolphnavGaurav dickerson - ED Attending Attestation I have performed the following: I have examined & evaluated the patient, The case was reviewed & discussed with the resident, I agree w/resident's findings & plan, Exceptions are as noted - Physicial Exam PE: GENERAL: Awake, alert, and fully oriented, in no acute distress HEAD: No signs of trauma EYES: PERRLA, EOMI, sclera anicteric. B/L conjunctiva injected. +Chemosis to the left eye. ENT: Auricles normal inspection, hearing grossly normal, nares patent, oropharynx clear without exudates. Moist mucosa NECK: Normal ROM, supple, no lymphadenopathy, JVD, or masses LUNGS: Breath sounds equal, clear to auscultation bilaterally. No wheezes, and no crackles HEART: Regular rate and rhythm, normal S1 and S2, no murmurs, rubs or gallops ABDOMEN: Soft, nontender, normoactive bowel sounds. No guarding, no rebound. No masses EXTREMITIES: Normal range of motion, no edema. No clubbing or cyanosis. No cords, erythema, or tenderness NEUROLOGICAL: Cranial nerves II through XII grossly intact. Normal speech, normal gait SKIN: Warm, Dry, normal turgor, no rashes or lesions noted. - Medical Decision Making Unable to perform fluorescein exam in ED, as there is a national fluorescein shortage. However, based on history, suspect this is likely corneal abrasions from vigorous rubbing of her eyes. D/w ophtho, recommended topical abx and outpatient f/u. <Shannon Sahu - Last Filed: 02/01/18 22:28>
[2018-02-01] MEDS ORDERED: GENTAMICIN SULFATE 0.3% OPHTHALMIC (EYE DROPS) 5ML BOTTLE OU ONE (18:09)
[2018-02-01] MEDS ORDERED: DICLOFENAC SODIUM 0.1% OPHTHALMIC 2.5ML BOTTLE OU ONE (18:20)
[2018-02-01] MEDS ORDERED: GENTAMICIN SULFATE 0.3% OPHTHALMIC (EYE DROPS) 5ML BOTTLE ONE (18:21)
[2018-02-01] MEDS ORDERED: KETOROLAC TROMETHAMINE 0.5% 5 ML BOTTLE OPTHALMIC OU ONE (19:00)
== END 2018-02-01 19:54 | disposition home or self-care (01) ==
LOC: JER 16:23
DX: F11.23 Opioid dependence with withdrawal (principal); H10.32 Unspecified acute conjunctivitis, left eye; I10 Essential (primary) hypertension; E11.9 Type 2 diabetes mellitus without complications; Z79.4 Long term (current) use of insulin; F31.9 Bipolar disorder, unspecified; J45.909 Unspecified asthma, uncomplicated; K21.9 Gastro-esophageal reflux disease without esophagitis
CPT/HCPCS: 36415; 80053; 85025; 99282-25

== ENCOUNTER 2018-11-28 08:43 | Inpatient (IN) | payer OTHER ==
[2018-11-28 09:22] VITALS: BMI 27.1
--- NOTE | 2018-11-28 09:28 | HP ---
COWS - Scale Resting Pulse: 0= MD 80 or Below Sweatin= Chills/Flushing Restless Observation: 3= Extraneous Movement Pupil Size: 1= Pupils >than Normal Bone or Joint Aches: 2= Severe Diffuse Aches Runny Nose/ Eye Tearin= Runny Nose/Eyes GI Upset > 30mins: 2= Nausea/Diarrhea Tremor Observation: 2= Slight Tremor Visible Yawning Observation: 2= >3x During Session Anxiety or Irritability: 2=Irritable/Anxious Goose Flesh Skin: 0=Smooth Skin COWS Score: 17 CIWA Score - Admission Criteria OASAS Guidelines: Admission for Medically Managed Detox: Requires at least one of the followin. CIWA greater than 12 2. Seizures within the past 24 hours 3. Delirium tremens within the past 24 hours 4. Hallucinations within the past 24 hours 5. Acute intervention needed for co occurring medical disorder 6. Acute intervention needed for co occurring psychiatric disorder 7. Severe withdrawal that cannot be handled at a lower level of care (continued vomiting, continued diarrhea, abnormal vital signs) requiring intravenous medication and/or fluids 8. Admission ROS [facility] - HPI Chief Complaint: i need help to stop using heroin Allergies/Adverse Reactions: Allergies Allergy/AdvReac Type Severity Reaction Status Date / Time No Known Drug Allergies Allergy Verified 11/28/18 10:26 strawberry AdvReac Hives Verified 11/28/18 10:26 History of Present Illness: this 58 years old female with heroin dependence,seeking detox,withdrawal symptom , multiple admissions in detox and rehab before,keep relapsing last detox [facility] in 10/23 not completed history of hypertension,iddm, nicotine dependence 1 pack/day, weight loss bipolar depression,depression,insomnia longest period of sobriety 9 years asthma Exam Limitations: No Limitations - Ebola screening Have you traveled outside of the country in the last 21 days: No Have you had contact with anyone from an Ebola affected area: No Do you have a fever: No - Review of Systems Constitutional: Chills, Loss of Appetite, Malaise, Night Sweats, Changes in sleep, Unintentional Wgt. Loss EENT: reports: Tearing, Nose Congestion Respiratory: reports: No Symptoms reported, Other (asthma) Cardiac: reports: No Symptoms Reported GI: reports: Nausea, Poor Appetite : reports: No Symptoms Reported Musculoskeletal: reports: Back Pain, Muscle Pain, Neck Pain, Joint Stiffness Integumentary: reports: Dryness Neuro: reports: Headache, Tremors Endocrine: reports: No Symptoms Reported Hematology: reports: No Symptoms Reported Psychiatric: reports: No Sypmtoms Reported, Judgement Intact, Mood/Affect Appropiate, Orientated x3, Anxious (insomnia), Depressed Other Systems: Reviewed and Negative Patient History - Patient Medical History Hx Anemia: No Hx Asthma: Yes (ON MEDICATION albuteol inhaler) Hx Chronic Obstructive Pulmonary Disease (COPD): No Hx Cancer: No Hx Cardiac Disorders: No Hx Congestive Heart Failure: No Hx Hypertension: Yes (ON MEDICATION) Hx Hypercholesterolemia: No Hx Pacemaker: No HX Cerebrovascular Accident: Yes (2011 for cva admitted in [place]) Hx Seizures: No Hx Dementia: No Hx Diabetes: Yes (iddm) Hx Gastrointestinal Disorders: Yes (GERD) Hx Liver Disease: No Hx Genitourinary Disorders: No Hx Sexually Transmitted Disorders: No Hx Renal Disease (ESRD): No Hx Thyroid Disease: No Hx Human Immunodeficiency Virus (HIV): No (last 09/22 negative) Hx Hepatitis C: No Hx Depression: Yes (anxiety,insomnia) Hx Suicide Attempt: No (denies) Hx Bipolar Disorder: Yes Hx Schizophrenia: No Other Medical History: no suicidal,no homicidal - Patient Surgical History Past Surgical History: Yes Hx Neurologic Surgery: No Hx Cataract Extraction: No Hx Cardiac Surgery: No Hx Lung Surgery: No Hx Breast Surgery: No Hx Breast Biopsy: No Hx Abdominal Surgery: Yes Hx Appendectomy: No Hx Cholecystectomy: No Hx Genitourinary Surgery: No Hx Section: No Hx Orthopedic Surgery: No Hx Hysterectomy: Yes (in 2015 vaginal hysterectomy in [facility]) Other Surgical History: HYSTERECTOMY-2015, MASS IN OVARY REMOVED-2013 Anesthesia Reaction: No - PPD History Previous Implant?: Yes Implanted On [facility] Admission?: Yes Date: 01/27/18 Results: >15mm PPD to be Administered?: No - Reproductive History Patient is a Female of Child Bearing Age (11 -55 yrs old): No Patient : No - Smoking Cessation Smoking history: Current every day smoker Have you smoked in the past 12 months: No Aproximately how many cigarettes per day: 20 Cigars Per Day: 0 Hx Chewing Tobacco Use: No Initiated information on smoking cessation: Yes 'Breaking Loose' booklet given: 11/28/18 - Substance & Tx. History Hx Alcohol Use: No Hx Substance Use: Yes Substance Use Type: Heroin Hx Substance Use Treatment: Yes ([facility] 10/23 not completed) - Substances Abused Heroin Route: Inhalation Frequency: Daily Amount used: 20 bags Age of first use: 19 Date of Last Use: 11/28/18 Family Disease History - Family Disease History Family History: Denies Admission Physical Exam BHS - Vital Signs Vital Signs: Vital Signs Temperature 97.1 F L 11/28/18 09:17 Pulse Rate 64 11/28/18 09:17 Respiratory Rate 18 11/28/18 09:17 Blood Pressure 127/82 11/28/18 09:17 O2 Sat by Pulse Oximetry (%) - Physical General Appearance: Yes: Moderate Distress, Tremorous, Irritable, Sweating, Anxious HEENTM: Yes: Normal ENT Inspection, ENID, Pharynx Normal Respiratory: Yes: Lungs Clear, Normal Breath Sounds, No Respiratory Distress Neck: Yes: Within Normal Limits, Supple, Trachea in good position Breast: Yes: Breast Exam Deferred Cardiology: Yes: Within Normal Limits, Regular Rhythm, Regular Rate, S1, S2 Abdominal: Yes: Within Normal Limits, Normal Bowel Sounds, Non Tender, Flat, Surgical Scar Genitourinary: Yes: Within Normal Limits Back: Yes: Muscle Spasm Musculoskeletal: Yes: Back pain, Joint Stiffness, Muscle Pain Extremities: Yes: Tremors Neurological: Yes: home health care worker II-XII NML intact, Alert, Motor Strength 5/5 Integumentary: Yes: Dry Lymphatic: Yes: Within Normal Limits - Diagnostic (1) Opioid dependence with withdrawal Current Visit: Yes Status: Acute (2) Bipolar disorder Current Visit: No Status: Chronic (3) Hypercholesteremia Current Visit: No Status: Chronic (4) Hypertension Current Visit: No Status: Chronic Qualifiers: Hypertension type: essential hypertension Qualified Code(s): I10 - Essential (primary) hypertension (5) Insulin dependent diabetes mellitus Current Visit: No Status: Chronic (6) Nicotine dependence Current Visit: Yes Status: Chronic Qualifiers: Nicotine product type: cigarettes Substance use status: in withdrawal Qualified Code(s): F17.213 - Nicotine dependence, cigarettes, with withdrawal (7) Weight loss Current Visit: Yes Status: Acute (8) History of hysterectomy Current Visit: Yes Status: Acute (9) Asthma Current Visit: No Status: Chronic Qualifiers: Asthma severity: mild Asthma persistence: unspecified Asthma complication type: with status asthmaticus Qualified Code(s): J45.902 - Unspecified asthma with status asthmaticus Cleared for Admission BHS - Detox or Rehab B[facility] Level of Care: Medically Managed Detox Regimen/Protocol: Methadone [facility] Breath Alcohol Content Breath Alcohol Content: 0 Inpatient Rehab Admission - Rehab Decision to Admit Inpatient rehab admission?: No
[2018-11-28] MEDS ORDERED: MAGNESIUM CITRATE 300 ML BOTTLE PO PRN (09:44)
[2018-11-28] MEDS ORDERED: ACETAMINOPHEN 325 MG TABLET (FP) PO PRN ×2 (09:44)
[2018-11-28] MEDS ORDERED: MELATONIN 5 MG TABLETS PO PRN (09:44)
[2018-11-28] MEDS ORDERED: MENTHOL/PHENOL 1 EACH UD MM PRN (09:44)
[2018-11-28] MEDS ORDERED: MAGNESIUM HYDROX 2400MG/30ML ORAL SUSPENSION 30 ML CUP PO PRN (09:44)
[2018-11-28] MEDS ORDERED: IBUPROFEN 400 MG TABLET (FP) PO PRN (09:44)
[2018-11-28] MEDS ORDERED: cloNIDine HCL 0.1 MG TABLET PO PRN (09:44)
[2018-11-28] MEDS ORDERED: MAG HYDROX/AL HYDROX/SIMETH 30 ML UNIT-DOSE CUP PO PRN (09:44)
[2018-11-28] MEDS ORDERED: BISMUTH SUBSALICYLATE 262 MG/15 ML BTL PO PRN (09:44)
[2018-11-28] MEDS ORDERED: METHADONE HCL 10 MG TABLET (FOR DETOX USE ONLY) PO ONE ×2 (10:30→23:00)
[2018-11-28] MEDS ORDERED: ALBUTEROL SO4 8 GM HFA INHALER IH SCH (10:45)
[2018-11-28] MEDS ORDERED: ONDANSETRON *ODT* 4 MG TABLET SL PRN (11:12)
[2018-11-28] MEDS: diazePAM 5 MG TABLET PO PRN ×3 (11:50→23:10)
[2018-11-28] MEDS: INSULIN (NOVOLOG) ASPART 100 UNITS/ML 10ML VIAL SQ SCH ×3 (11:52→21:51)
[2018-11-28] MEDS: NICOTINE 21 MG/24 HOURS TOPICAL PATCH TD SCH (11:53)
[2018-11-28] MEDS: PRENATAL VITAMINS W/ FOLIC ACID TABLET (FP) PO SCH (11:53)
--- NOTE | 2018-11-28 13:22 | CONSULT ---
[facility] Psychiatric Consult - Data Date of interview: 11/28/18 Admission source: [facility] Identifying data: This is one of multiple admissions to [facility] for this 58 y/ o female self-referred for detoxification (heroin, cannabis). Examined at [address] [place] [address]. Patient is , a mother of four, domiciled (lives with niece), unemployed and supported on SSI benefits. Substance Abuse History: Confirmed by the patient in this session. Details in current [facility] report : Smoking history: Current every day smoker. Have you smoked in the past 12 months: No. Aproximately how many cigarettes per day: 20. Cigars Per Day: 0. Hx Chewing Tobacco Use: No. Initiated information on smoking cessation: Yes. 'Breaking Loose' booklet given: 11/28/18. - Substance & Tx. History. Hx Alcohol Use: No. Hx Substance Use: Yes. Substance Use Type : Heroin. Hx Substance Use Treatment: Yes ([facility] 10/23 not completed). - Substances Abused. Heroin. Route: Inhalation. Frequency: Daily. Amount used: 20 bags. Age of first use: 19. Date of Last Use: 11/28/18 Medical History: History of CVA (2011), hypertension, diabetes mellitus, bronchial asthma, GERD, tubal ligation, left oophorectomy + hysterectomy (2015). Psychiatric History: Patient admits to a history of multiple psychiatric hospitalizations ([facility] in [place]).Onset of emotional disturbances : age 42. Reportedly diagnosed with Bipolar Disorder. Ms Nicholson used to be treated with seroquel 400 mg po hs + celexa (dose not recalled). Patient indicates that she sees a psychiatrist, on a monthly basis, at a clinic located on [facility] in the [place]. Patient denies history of suicide attempts. Physical/Sexual Abuse/Trauma History: Not discussed. Patient declined. Additional Comment: Toxicology not available. Mental Status Exam - Mental Status Exam Alert and Oriented to: Time, Place, Person Cognitive Function: Grossly Intact Patient Appearance: Unkempt, Disheveled Mood: Nervous, Withdrawn, Anxious Affect: Mood Congruent, Constricted Patient Behavior: Sedated (mildly sedated), Fatigued Speech Pattern: Delayed, Slurred Voice Loudness: Moderately Soft/Quiet Thought Process: Goal Oriented Thought Disorder: Not Present Hallucinations: Denies Suicidal Ideation: Denies Homicidal Ideation: Denies Insight/Judgement: Poor Sleep: Well Appetite: Good Muscle strength/Tone: Normal Gait/Station: Other (slow) Psychiatric Findings - Problem List ([place] 1, 2,3) (1) Opioid dependence with withdrawal Current Visit: Yes Status: Acute (2) Nicotine dependence Current Visit: Yes Status: Chronic Qualifiers: Nicotine product type: cigarettes Substance use status: in withdrawal Qualified Code(s): F17.213 - Nicotine dependence, cigarettes, with withdrawal (3) History of bipolar disorder Current Visit: Yes Status: Chronic Comment: Non-adherent to OPD care. (4) Non-compliant behavior Current Visit: Yes Status: Chronic - Initial Treatment Plan Initial Treatment Plan: Psychoeducation. Sleep hygiene. Support. Detoxification. Patient declines to resume psychotropic medications other than formulations necessary for detoxification purposes. She report to this movie writer that she has not taken seroquel and other medications prescribed by her psychiatrist for " more than a year " . Not receptive to teaching. Made aware of risks inherent to non-adherence to OPD care. Observation.
[2018-11-28] MEDS: hydrOXYzine PAMOATE 25 MG CAPSULE (FP) PO PRN ×2 (15:42→23:13)
[2018-11-28] MEDS ORDERED: COLLOIDAL OATMEAL 1 BAR EACH TP PRN (19:51)
[2018-11-28] MEDS: THIAMINE HCL 100 MG TABLET (FP) PO SCH (22:25)
[2018-11-28] MEDS: INSULIN (LEVEMIR) 100 UNITS/ML UNITS SQ SCH (22:29)
[2018-11-29] MEDS: ALBUTEROL SO4 8 GM HFA INHALER IH PRN (04:13)
[2018-11-29] MEDS: diazePAM 5 MG TABLET PO PRN ×5 (06:20→22:40)
[2018-11-29] MEDS: INSULIN (NOVOLOG) ASPART 100 UNITS/ML 10ML VIAL SQ SCH ×4 (06:57→22:36)
--- NOTE | 2018-11-29 09:20 | PN ---
Psychiatric Progress Note Vital Signs: Vital Signs Period Temp Pulse Resp BP Sys/Zuniga Pulse Ox Last 24 Hr 97.1 F-100.4 F 51-87 16-18 97-152/62-95 Date of Session: 11/29/18 Chief Complaint:: " I can't sleep." HPI: Patient on day two of detox. Patient reports difficulty sleeping. ROS: History of CVA (2011), hypertension, diabetes mellitus, bronchial asthma, GERD, tubal ligation, left oophorectomy + hysterectomy (2015) Current Medications: Active Medications Generic Name Dose Route Start Last Admin Trade Name Freq PRN Reason Stop Dose Admin Acetaminophen 650 mg 11/28/18 09:44 Tylenol - PO Q6H PRN PAIN LEVEL 4 - 6 Acetaminophen 650 mg 11/28/18 09:44 Tylenol - PO Q6H PRN FEVER Al Hydroxide/Mg Hydroxide 30 ml 11/28/18 09:44 Mylanta Oral Suspension - PO Q6H PRN DYSPEPSIA Albuterol Sulfate 2 puff 11/28/18 11:14 11/29/18 04:13 Ventolin Hfa Inhaler - IH 2 puff Q4H PRN Administration ASTHMA Aspirin 81 mg 11/29/18 10:00 Ecotrin - PO DAILY CLEMENCIA Bismuth Subsalicylate 30 ml 11/28/18 09:44 Pepto-Bismol Liquid - PO Q1H PRN DIARRHEA Clonidine 0.1 mg 11/28/18 09:44 Catapres - PO 11/30/18 23:55 Q6H PRN Withdrawal Symptoms Colloidal Oatmeal 1 applic 11/28/18 19:51 Aveeno Soap - TP DAILY PRN HYGEINE Diazepam 10 mg 11/28/18 09:51 11/29/18 06:20 Valium - PO 12/01/18 09:51 10 mg Q4H PRN Administration WITHDRAWAL(CONT SUBST) Eucalyptus/Menthol/Phenol/Sorbitol 1 each 11/28/18 09:44 Cepastat Lozenge - MM 12/04/18 09:44 Q4H PRN SORE THROAT Hydroxyzine Pamoate 25 mg 11/28/18 09:44 11/28/18 23:13 Vistaril - PO 12/04/18 09:44 25 mg Q6H PRN Administration For Anxiety Ibuprofen 400 mg 11/28/18 09:44 Motrin - PO Q6H PRN PAIN LEVEL 1 - 3 Insulin Aspart 0 units 11/28/18 11:00 11/29/18 06:57 Novolog Vial SQ Not Given ACHS [facility] Protocol Insulin Detemir 25 units 11/28/18 22:00 11/28/18 22:29 Levemir Vial SQ 25 units HS CLEMENCIA Administration Magnesium Citrate 300 ml 11/28/18 09:44 Citroma - PO Q48H PRN CONSTIPATION Magnesium Hydroxide 30 ml 11/28/18 09:44 Milk Of Magnesia - PO PRN PRN CONSTIPATION Melatonin 5 mg 11/28/18 09:44 Melatonin PO HS PRN INSOMNIA Methadone HCl 5 mg 12/02/18 06:00 Dolophine - PO 12/02/18 06:01 ONCE@0600 ONE Methadone HCl 30 mg 11/29/18 10:00 Dolophine - PO 11/29/18 10:01 ONCE ONE Methadone HCl 10 mg 12/01/18 10:00 Dolophine - PO 12/01/18 10:01 ONCE ONE Methadone HCl 20 mg 11/30/18 10:00 Dolophine - PO 11/30/18 10:01 ONCE ONE Methocarbamol 500 mg 11/28/18 09:44 Robaxin - PO 12/04/18 09:44 Q6H PRN MUSCLE SPASMS Nicotine 21 mg 11/28/18 10:00 11/28/18 11:53 Nicoderm Patch - TD 21 mg DAILY CLEMENCIA Administration Nicotine Polacrilex 2 mg 11/28/18 09:44 Nicorette Gum - BUC Q2H PRN NICOTINE REPLACEMENT RX Ondansetron HCl 4 mg 11/28/18 11:12 Zofran Odt - SL Q6H PRN NAUSEA AND/OR VOMITING Multivit/Folic Acid/Iron 1 tab 11/28/18 10:00 11/28/18 11:53 Vitamins (Sjr) - PO Not Given DAILY CLEMENCIA Thiamine HCl 100 mg 11/28/18 22:00 11/28/18 22:25 Vitamin B1 - PO 100 mg HS CLEMENCIA Administration Medication(s) Change(s): Yes. Will order Seroquel 150mg HS. Benefits and side effects discussed. Verbal consent given. Current Side Effect: No Lab tests ordered: No Lab tests reviewed: Yes Provider note:: Patient presented as lethargic, upset, and irritable. Dr. Terry note read and appreciated. Ms. Nicholson reports taking seroquel 300mg and celexa 10mg. States she receives outpatient care in the [place], [place]. Diagnosis of Bipolar disorder. [facility] pharmacy contacted at [phone] and able to speak to pharmacist. As per pharmacist, patient picked up a prescription of Seroquel 300mg +Ambien 10mg on September 24, 2018. Pharmacist informed life underwriter that patient's most recent prescription was sent to [facility] in November of 2018. [facility] on [facility] contacted at [phone] and able to speak to pharmacy staff. As per pharmacy staff a prescription of Seroquel 400mg + Ambien 10mg + Gabapentin 100mg TID+ Paxil 15mg HS (patient is unaware of ever accepting paxil) + Klonopin 1mg BID + suboxone was electronically sent to the pharmacy on 11/09/18. As per the pharmacy staff patient only picked up klonopin and suboxone. Total face to face time:: 25 Mental Status Exam - Mental Status Exam Alert and Oriented to: Time, Place, Person Cognitive Function: Good Patient Appearance: Unkempt Mood: Irritable Affect: Mood Congruent Patient Behavior: Fatigued, Cooperative Speech Pattern: Appropriate Voice Loudness: Normal Thought Process: Intact, Goal Oriented Thought Disorder: Not Present Hallucinations: Denies Suicidal Ideation: Denies Homicidal Ideation: Denies Insight/Judgement: Poor Sleep: Poorly Appetite: Fair Muscle strength/Tone: Normal Gait/Station: Normal Psychiatric Treatment Plan - Problem List (1) Substance induced mood disorder Current Visit: Yes (2) Opioid dependence with withdrawal Current Visit: Yes (3) History of bipolar disorder Current Visit: Yes Comment: Non-adherent to OPD care. (4) Substance-induced sleep disorder Current Visit: Yes
--- NOTE | 2018-11-29 09:40 | PN ---
BHS COWS - Scale Resting Pulse: 1= MD 81-100 Sweatin= Chills/Flushing Restless Observation: 1= Difficult to Sit Still Pupil Size: 1= Pupils >than Normal Bone or Joint Aches: 1= Mild Discomfort Runny Nose/ Eye Tearin= Nasal Congestion GI Upset > 30mins: 1= Stomach Cramp Tremor Observation of Outstretched Hands: 1= Tremor Leivasy, Not Seen Yawning Observation: 2= >3x During Session Anxiety or Irritability: 2=Irritable/Anxious Goose Flesh Skin: 0=Smooth Skin COWS Score: 12 BHS Progress Note (SOAP) Subjective: mild body aches can not sleep at night restlessness seroquel 50 mg hs x 1 Objective: 11/29/18 09:40 Vital Signs Temperature 97.5 F L 11/29/18 09:19 Pulse Rate 76 11/29/18 09:19 Respiratory Rate 18 11/29/18 09:19 Blood Pressure 96/54 L 11/29/18 09:19 O2 Sat by Pulse Oximetry (%) Laboratory Last Values POC Glucometer 89 UNITS (80-120) 11/29/18 06:19 lab pending Assessment: 11/29/18 09:40 withdrawal sx Plan: continue detox
[2018-11-29] MEDS ORDERED: METHADONE HCL 10 MG TABLET (FOR DETOX USE ONLY) PO ONE (10:00)
[2018-11-29] MEDS: PRENATAL VITAMINS W/ FOLIC ACID TABLET (FP) PO SCH (10:08)
[2018-11-29] MEDS: ASPIRIN COATED 81 MG TABLET.EC PO SCH (10:08)
[2018-11-29] MEDS: NICOTINE 21 MG/24 HOURS TOPICAL PATCH TD SCH (10:09)
[2018-11-29] MEDS: NICOTINE POLACRILEX 2 MG GUM BUC PRN (10:10)
[2018-11-29 10:57] LABS: HEMATOCRIT 45.6 % (32.4-45.2); MCH 31.6 pg (25.7-33.7); MEAN CELL VOLUME 95.7 fl (80-96); MEAN PLT VOLUME 9.4 fl (7.5-11.1); PLATELET COUNT 234 K/MM3 (134-434); RBC 4.76 M/mm3 (3.60-5.2); RDW 13.8 % (11.6-15.6); WHITE BLOOD COUNT 9.4 K/mm3 (4.0-10.0)
[2018-11-29 11:02] LABS: ALBUMIN 4.5 g/dl (3.4-5.0); ALK PHOS 114 U/L (45-117); ANION GAP 6 MMOL/L (8-16); BILIRUBIN,TOTAL 0.3 mg/dL (0.2-1); BLOOD UREA NITROGEN 14 mg/dL (7-18); CHLORIDE 106 mmol/L (98-107); CO2 27 mmol/L (21-32); CREATININE 0.9 mg/dL (0.55-1.3); GLUCOSE,RANDOM 126 mg/dL (74-106); POTASSIUM 4.3 mmol/L (3.5-5.1); SGOT/AST 19 U/L (15-37); SGPT/ALT 21 U/L (13-61); SODIUM 139 mmol/L (136-145); TOT PROT 7.8 g/dl (6.4-8.2)
[2018-11-29] MEDS ORDERED: ARTIFICIAL TEARS (POLYVINYL ALCOHOL) OPTH DROPS OU PRN (18:24)
[2018-11-29] MEDS ORDERED: QUEtiapine FUMARATE 50 MG TABLET PO ONE (22:00)
[2018-11-29] MEDS: INSULIN (LEVEMIR) 100 UNITS/ML UNITS SQ SCH (22:35)
[2018-11-29] MEDS: THIAMINE HCL 100 MG TABLET (FP) PO SCH (22:36)
[2018-11-29] MEDS: QUEtiapine FUMARATE 50 MG TABLET PO SCH (22:37)
[2018-11-30] MEDS: INSULIN (NOVOLOG) ASPART 100 UNITS/ML 10ML VIAL SQ SCH ×4 (08:07→22:39)
[2018-11-30] MEDS: ASPIRIN COATED 81 MG TABLET.EC PO SCH (10:00)
[2018-11-30] MEDS: PRENATAL VITAMINS W/ FOLIC ACID TABLET (FP) PO SCH (10:00)
[2018-11-30] MEDS ORDERED: METHADONE HCL 10 MG TABLET (FOR DETOX USE ONLY) PO ONE (10:00)
[2018-11-30] MEDS: diazePAM 5 MG TABLET PO PRN ×2 (10:03→15:15)
[2018-11-30] MEDS: NICOTINE 21 MG/24 HOURS TOPICAL PATCH TD SCH (11:59)
[2018-11-30] MEDS ORDERED: INSULIN SLIDING SCALE (NOVOLOG) 1 VIAL SQ ONE ×2 (17:13→22:02)
--- NOTE | 2018-11-30 18:24 | PN ---
BHS COWS - Scale Resting Pulse: 0= TX 80 or Below Sweatin= No chills or Flushing Restless Observation: 1= Difficult to Sit Still Pupil Size: 0= Normal to Room Light Bone or Joint Aches: 2= Severe Diffuse Aches Runny Nose/ Eye Tearin= None GI Upset > 30mins: 0= None Tremor Observation of Outstretched Hands: 0= None Yawning Observation: 1= 1-2x During Session Anxiety or Irritability: 2=Irritable/Anxious Goose Flesh Skin: 3=Piloerection COWS Score: 9 BHS Progress Note (SOAP) Subjective: Body Aches, Restless, Interrupted Sleep. Objective: PATIENT A & O X 2 (UNCERTAIN ABOUT CURRENT DAY / DATE). PATIENT OBSERVED AMBULATING ON UNIT. IN NO ACUTE DISTRESS. 11/30/18 18:23 Vital Signs Temperature 97.0 F L 11/30/18 13:00 Pulse Rate 69 11/30/18 13:00 Respiratory Rate 18 11/30/18 13:00 Blood Pressure 113/76 11/30/18 13:00 O2 Sat by Pulse Oximetry (%) Laboratory Tests 11/28/18 11/28/18 11/28/18 11:01 16:40 21:18 WBC RBC Hgb Hct MCV MCH MCHC RDW Plt Count MPV Sodium Potassium Chloride Carbon Dioxide Anion Gap BUN Creatinine Creat Clearance w eGFR POC Glucometer 143 146 133 Random Glucose Calcium Total Bilirubin AST ALT Alkaline Phosphatase Total Protein Albumin RPR Titer 11/29/18 11/29/18 11/29/18 06:00 06:00 06:00 WBC 9.4 RBC 4.76 Hgb 15.0 Hct 45.6 H MCV 95.7 MCH 31.6 MCHC 33.0 RDW 13.8 Plt Count 234 MPV 9.4 Sodium 139 Potassium 4.3 Chloride 106 Carbon Dioxide 27 Anion Gap 6 L BUN 14 Creatinine 0.9 Creat Clearance w eGFR 64.77 POC Glucometer Random Glucose 126 H Calcium 10.0 Total Bilirubin 0.3 AST 19 ALT 21 Alkaline Phosphatase 114 Total Protein 7.8 Albumin 4.5 RPR Titer Nonreactive 11/29/18 11/29/18 11/29/18 06:19 12:04 16:41 WBC RBC Hgb Hct MCV MCH MCHC RDW Plt Count MPV Sodium Potassium Chloride Carbon Dioxide Anion Gap BUN Creatinine Creat Clearance w eGFR POC Glucometer 89 115 133 Random Glucose Calcium Total Bilirubin AST ALT Alkaline Phosphatase Total Protein Albumin RPR Titer 11/29/18 11/30/18 11/30/18 22:32 06:35 11:00 WBC RBC Hgb Hct MCV MCH MCHC RDW Plt Count MPV Sodium Potassium Chloride Carbon Dioxide Anion Gap BUN Creatinine Creat Clearance w eGFR POC Glucometer 154 97 108 Random Glucose Calcium Total Bilirubin AST ALT Alkaline Phosphatase Total Protein Albumin RPR Titer 11/30/18 16:59 WBC RBC Hgb Hct MCV MCH MCHC RDW Plt Count MPV Sodium Potassium Chloride Carbon Dioxide Anion Gap BUN Creatinine Creat Clearance w eGFR POC Glucometer 173 Random Glucose Calcium Total Bilirubin AST ALT Alkaline Phosphatase Total Protein Albumin RPR Titer LABS NOTED. Assessment: 11/30/18 18:24 WITHDRAWAL SYMPTOMS. Plan: CONTINUE DETOX. INCREASE DAILY PO FLUID INTAKE.
[2018-11-30] MEDS: THIAMINE HCL 100 MG TABLET (FP) PO SCH (22:37)
[2018-11-30] MEDS: QUEtiapine FUMARATE 50 MG TABLET PO SCH (22:37)
[2018-11-30] MEDS: INSULIN (LEVEMIR) 100 UNITS/ML UNITS SQ SCH (22:41)
[2018-12-01] MEDS: diazePAM 5 MG TABLET PO PRN (05:43)
[2018-12-01] MEDS: INSULIN (NOVOLOG) ASPART 100 UNITS/ML 10ML VIAL SQ SCH ×4 (06:28→23:00)
[2018-12-01] MEDS ORDERED: METHADONE HCL 10 MG TABLET (FOR DETOX USE ONLY) PO ONE (10:00)
[2018-12-01] MEDS: ASPIRIN COATED 81 MG TABLET.EC PO SCH (10:44)
[2018-12-01] MEDS: PRENATAL VITAMINS W/ FOLIC ACID TABLET (FP) PO SCH (10:44)
[2018-12-01] MEDS: NICOTINE 21 MG/24 HOURS TOPICAL PATCH TD SCH (10:44)
[2018-12-01] MEDS: ALBUTEROL SO4 8 GM HFA INHALER IH PRN (10:44)
[2018-12-01] MEDS: hydrOXYzine PAMOATE 25 MG CAPSULE (FP) PO PRN ×2 (10:47→18:47)
--- NOTE | 2018-12-01 17:55 | PN ---
BHS Progress Note (SOAP) Subjective: tremors Objective: 12/01/18 17:54 A & ox 3 Met in day room eating No acute distress noted Flat affect Vital Signs Temperature 97.4 F L 12/01/18 14:04 Pulse Rate 77 12/01/18 14:04 Respiratory Rate 18 12/01/18 14:04 Blood Pressure 110/70 12/01/18 14:04 O2 Sat by Pulse Oximetry (%) Assessment: 12/01/18 17:54 withdrawal sx Plan: continue detox
[2018-12-01] MEDS ORDERED: INSULIN SLIDING SCALE (NOVOLOG) 1 VIAL SQ ONE ×2 (18:53→23:14)
[2018-12-01] MEDS: QUEtiapine FUMARATE 50 MG TABLET PO SCH (22:59)
[2018-12-01] MEDS: THIAMINE HCL 100 MG TABLET (FP) PO SCH (22:59)
[2018-12-01] MEDS: INSULIN (LEVEMIR) 100 UNITS/ML UNITS SQ SCH (23:03)
[2018-12-01] MEDS: METHOCARBAMOL 500 MG TABLET PO PRN (23:06)
[2018-12-02] MEDS ORDERED: METHADONE HCL 5 MG TABLET (FOR DETOX USE ONLY) PO ONE (06:00)
[2018-12-02] MEDS: hydrOXYzine PAMOATE 25 MG CAPSULE (FP) PO PRN (06:32)
[2018-12-02] MEDS: INSULIN (NOVOLOG) ASPART 100 UNITS/ML 10ML VIAL SQ SCH ×2 (06:45→11:50)
[2018-12-02 09:35] VITALS: BP 120/94; PULSE 84; TEMP 97.6
[2018-12-02] MEDS: PRENATAL VITAMINS W/ FOLIC ACID TABLET (FP) PO SCH (10:42)
[2018-12-02] MEDS: ASPIRIN COATED 81 MG TABLET.EC PO SCH (10:42)
[2018-12-02] MEDS: NICOTINE 21 MG/24 HOURS TOPICAL PATCH TD SCH (10:43)
[2018-12-02] MEDS: METHOCARBAMOL 500 MG TABLET PO PRN (10:45)
[2018-12-02] MEDS: NICOTINE POLACRILEX 2 MG GUM BUC PRN (10:46)
--- NOTE | 2018-12-02 16:23 | DS ---
[facility] Detox Discharge Summary Admission Date: 11/28/18 Discharge Date: 12/02/18 - History Present History: Opioid Dependence Additional Comments: 58 years old female admitted on 11/28/18 for opiate withdrawal stabilization completed detox regimen aftercare as per counselor arrangement - Physical Exam Results Vital Signs: Vital Signs Temperature 97.6 F 12/02/18 09:34 Pulse Rate 84 12/02/18 09:34 Respiratory Rate 18 12/02/18 09:34 Blood Pressure 120/94 12/02/18 09:34 O2 Sat by Pulse Oximetry (%) Pertinent Admission Physical Exam Findings: opiate withdrawal sx Laboratory Last Values WBC 9.4 K/mm3 (4.0-10.0) 11/29/18 06:00 RBC 4.76 M/mm3 (3.60-5.2) 11/29/18 06:00 Hgb 15.0 GM/dL (10.7-15.3) 11/29/18 06:00 Hct 45.6 % (32.4-45.2) H 11/29/18 06:00 MCV 95.7 fl (80-96) 11/29/18 06:00 MCH 31.6 pg (25.7-33.7) 11/29/18 06:00 MCHC 33.0 g/dl (32.0-36.0) 11/29/18 06:00 RDW 13.8 % (11.6-15.6) 11/29/18 06:00 Plt Count 234 K/MM3 (134-434) 11/29/18 06:00 MPV 9.4 fl (7.5-11.1) 11/29/18 06:00 Sodium 139 mmol/L (136-145) 11/29/18 06:00 Potassium 4.3 mmol/L (3.5-5.1) 11/29/18 06:00 Chloride 106 mmol/L (98-107) 11/29/18 06:00 Carbon Dioxide 27 mmol/L (21-32) 11/29/18 06:00 Anion Gap 6 MMOL/L (8-16) L 11/29/18 06:00 BUN 14 mg/dL (7-18) 11/29/18 06:00 Creatinine 0.9 mg/dL (0.55-1.3) 11/29/18 06:00 Creat Clearance w eGFR 64.77 (>60) 11/29/18 06:00 POC Glucometer 130 UNITS (80-120) 12/02/18 06:28 Random Glucose 126 mg/dL (74-106) H 11/29/18 06:00 Calcium 10.0 mg/dL (8.5-10.1) 11/29/18 06:00 Total Bilirubin 0.3 mg/dL (0.2-1) 11/29/18 06:00 AST 19 U/L (15-37) 11/29/18 06:00 ALT 21 U/L (13-61) 11/29/18 06:00 Alkaline Phosphatase 114 U/L (45-117) 11/29/18 06:00 Total Protein 7.8 g/dl (6.4-8.2) 11/29/18 06:00 Albumin 4.5 g/dl (3.4-5.0) 11/29/18 06:00 RPR Titer Nonreactive (NONREACTIVE) 11/29/18 06:00 lab noted - Treatment Hospital Course: Detox Protocol Followed, Detoxed Safely, Responded well, Discharged Condition Good, Rehab Referral Accepted Patient has Accepted a Rehab Referral to: as per cousesophia simpson - Medication Discharge Medications: Ambulatory Orders Aspirin [Aspirin EC] 81 mg PO DAILY 01/25/18 Insulin (LOG) Aspart [NovoLOG -] See Protocol SQ QID 01/25/18 Insulin Glargine,Hum.rec.anlog [Lantus] 25 units SQ HS 01/25/18 Albuterol Sulfate Inhaler - [Ventolin HFA Inhaler -] 1 - 2 inh PO QID #1 inhaler 01/30/18 Quetiapine Fumarate [Seroquel -] 300 mg PO HS 11/28/18 - Diagnosis (1) Opioid dependence with withdrawal Status: Acute (2) Substance induced mood disorder Status: Suspected (3) Asthma Status: Chronic Qualifiers: Asthma severity: mild Asthma persistence: unspecified Asthma complication type: with status asthmaticus Qualified Code(s): J45.902 - Unspecified asthma with status asthmaticus (4) Hypertension Status: Chronic Qualifiers: Hypertension type: essential hypertension Qualified Code(s): I10 - Essential (primary) hypertension (5) Nicotine dependence Status: Acute Qualifiers: Nicotine product type: cigarettes Substance use status: in withdrawal Qualified Code(s): F17.213 - Nicotine dependence, cigarettes, with withdrawal - AMA Did Patient Leave Against Medical Advice: No
== END 2018-12-02 13:32 | disposition home or self-care (01) | DRG 897 ==
LOC: YASAS 08:43 → Y3N 09:59
PROVIDERS: ADMIT Surgery; ATTEND Surgery
PROC: HZ2ZZZZ Detoxification Services for Substance Abuse Treatment (ICD-10-PCS; principal; 2018-11-28)
DX: F11.23 Opioid dependence with withdrawal (principal); F19.282 Other psychoactive substance dependence with psychoactive substance-induced sleep disorder; J45.902 Unspecified asthma with status asthmaticus; F17.213 Nicotine dependence, cigarettes, with withdrawal; F19.24 Other psychoactive substance dependence with psychoactive substance-induced mood disorder; F41.9 Anxiety disorder, unspecified; I10 Essential (primary) hypertension; K21.9 Gastro-esophageal reflux disease without esophagitis; E11.9 Type 2 diabetes mellitus without complications; Z79.4 Long term (current) use of insulin; Z86.59 Personal history of other mental and behavioral disorders; Z86.73 Personal history of transient ischemic attack (TIA), and cerebral infarction without residual deficits; Z91.19 Patient's noncompliance with other medical treatment and regimen
CPT/HCPCS: 36415; 80053; 82962; 85027; 86593

== ENCOUNTER 2018-12-29 10:23 | Inpatient (IN) | payer OTHER ==
[2018-12-29 12:06] VITALS: BMI 27.3
--- NOTE | 2018-12-29 12:39 | HP ---
COWS - Scale Resting Pulse: 0= [place] 80 or Below Sweatin= Chills/Flushing Restless Observation: 0= Sits Still Pupil Size: 0= Normal to Room Light Bone or Joint Aches: 1= Mild Discomfort Runny Nose/ Eye Tearin= Nasal Congestion GI Upset > 30mins: 1= Stomach Cramp Tremor Observation: 1= Tremor [place], Not Seen Yawning Observation: 1= 1-2x During Session Anxiety or Irritability: 2=Irritable/Anxious Goose Flesh Skin: 0=Smooth Skin COWS Score: 8 Admission ROS BHS - HPI Chief Complaint: I'm here to stop getting high, because I need help Allergies/Adverse Reactions: Allergies Allergy/AdvReac Type Severity Reaction Status Date / Time No Known Drug Allergies Allergy Verified 12/29/18 12:23 strawberry AdvReac Hives Verified 12/29/18 12:23 History of Present Illness: 58 yo woman here for detox from heroin. Patient is taking prescribed klonopin ( see below). She has a history of being on methadone (140mg) years ago - relapsed since detoxing herself. She tried suboxone but it upset her stomach. She might try it again, also interested in snf rehab after detox. Denies overdose or black outs. [facility]: Patient Name: Sarah Nicholson Date: 1960 Address: [address] [place] [address] Sex: Female Rx Written Rx Dispensed Drug Quantity Days Supply Prescriber Name 11/22/2018 12/06/2018 zolpidem tartrate 10 mg tablet 10 10 Cirilo Nguyen) 09/28/2018 09/28/2018 zolpidem tartrate 10 mg tablet 30 30 Cirilo Nguyen) 09/25/2018 09/26/2018 lyrica 75 mg capsule 30 30 Cirilo Nguyen) Patient Name: Sarah Nicholson Date: 1960 Address: [address] [place] [id number] Sex: Female Rx Written Rx Dispensed Drug Quantity Days Supply Prescriber Name 11/09/2018 11/22/2018 suboxone 8 mg-2 mg sl film 30 15 Damon Rudolph 11/09/2018 11/16/2018 clonazepam 1 mg tablet 30 15 Damon Rudolph Exam Limitations: Clinical Condition - Ebola screening Have you traveled outside of the country in the last 21 days: No Have you had contact with anyone from an Ebola affected area: No - Review of Systems Constitutional: Loss of Appetite, Changes in sleep, Weakness EENT: reports: Blurred Vision, Nose Congestion Respiratory: reports: No Symptoms reported Cardiac: reports: No Symptoms Reported GI: reports: Constipated, Nausea : reports: Dysuria Musculoskeletal: reports: Back Pain, Joint Pain, Muscle Pain Integumentary: reports: No Symptoms Reported Neuro: reports: Headache, Tremors Endocrine: reports: No Symptoms Reported Hematology: reports: No Symptoms Reported Psychiatric: reports: Judgement Intact, Mood/Affect Appropiate, Anxious Other Systems: Reviewed and Negative Patient History - Patient Medical History Hx Anemia: No Hx Asthma: Yes (ON MEDICATION albuteol inhaler) Hx Chronic Obstructive Pulmonary Disease (COPD): No Hx Cancer: No Hx Cardiac Disorders: No Hx Congestive Heart Failure: No Hx Hypertension: Yes (ON MEDICATION) Hx Hypercholesterolemia: No Hx Pacemaker: No HX Cerebrovascular Accident: Yes (2012 for TIA no residual) Hx Seizures: No Hx Dementia: No Hx Diabetes: Yes (on insulin, with neuropathy) Hx Gastrointestinal Disorders: Yes (GERD) Hx Liver Disease: No Hx Genitourinary Disorders: No Hx Sexually Transmitted Disorders: No Hx Renal Disease (ESRD): No Hx Thyroid Disease: No Hx Human Immunodeficiency Virus (HIV): No (last 09/22 negative) Hx Hepatitis C: No Hx Depression: Yes (anxiety,insomnia, on meds, sees psych) Hx Suicide Attempt: No (denies) Hx Bipolar Disorder: Yes (never hospitalized) Hx Schizophrenia: No Other Medical History: PPD+ - treated; - Patient Surgical History Past Surgical History: Yes Hx Neurologic Surgery: No Hx Cataract Extraction: No Hx Cardiac Surgery: No Hx Lung Surgery: No Hx Breast Surgery: No Hx Breast Biopsy: No Hx Abdominal Surgery: Yes Hx Appendectomy: No Hx Cholecystectomy: No Hx Genitourinary Surgery: Yes (tubal ligation) Hx Section: No Hx Orthopedic Surgery: No Hx Hysterectomy: Yes (in 2015 vaginal hysterectomy in [facility]) Other Surgical History: HYSTERECTOMY-2015, MASS IN OVARY REMOVED-2013 Anesthesia Reaction: No - PPD History Previous Implant?: Yes Documented Results: Positive w/proof Implanted On Prior [facility] Admission?: Yes Date: 01/27/18 (cxr negative; treated INH x 6 months) Results: >15mm PPD to be Administered?: No - Reproductive History Patient is a Female of Child Bearing Age (11 -55 yrs old): No - Smoking Cessation Smoking history: Current every day smoker Have you smoked in the past 12 months: Yes Aproximately how many cigarettes per day: 20 Cigars Per Day: 0 Hx Chewing Tobacco Use: No Initiated information on smoking cessation: Yes 'Breaking Loose' booklet given: 12/29/18 - Substance & Tx. History Hx Alcohol Use: No Hx Substance Use: Yes Substance Use Type: Heroin Hx Substance Use Treatment: Yes (detox, suboxone, methadone years ago) - Substances abused Heroin Substance route: Inhalation Frequency: Daily Amount used: 10 bags Age of first use: 19 Date of last use: 12/29/18 Family Disease History - Family Disease History Family Disease History: Diabetes: Mother (living, ), Heart Disease: Mother, Other: Father (, unknown), Mother, Brother (one - no contact), Sister ( seven - no contact), Son (two - healthy), Daughter (two - healthy) Admission Physical Exam [facility] - Vital Signs Vital Signs: Vital Signs - 24 hr 12/29/18 12/29/18 12:04 12:23 Temperature 97.6 F 97.6 F Pulse Rate 58 L 58 L Respiratory 18 18 Rate Blood Pressure 113/79 113/79 - Physical General Appearance: Yes: Nourished, Appropriately Dressed, Moderate Distress, Irritable, Anxious HEENTM: Yes: EOMI, Hearing grossly Normal, Normocephalic, Normal Voice, Pharynx Normal, Other (dentures) Respiratory: Yes: Normal Breath Sounds, No Respiratory Distress Neck: Yes: Within Normal Limits Breast: Yes: Breast Exam Deferred Cardiology: Yes: Regular Rhythm, Regular Rate Abdominal: Yes: Flat, Soft Genitourinary: Yes: Dysuria Back: Yes: Normal Inspection Musculoskeletal: Yes: full range of Motion, Gait Steady Extremities: Yes: Normal Inspection, Normal Range of Motion Neurological: Yes: Fully Oriented, Alert, Motor Strength 5/5, Normal Mood/Affect , Normal Response, Numbness Integumentary: Yes: Normal Color, Warm Lymphatic: Yes: Within Normal Limits - Diagnostic (1) Opioid dependence with withdrawal Current Visit: Yes Status: Chronic (2) Hypercholesteremia Current Visit: Yes Status: Chronic (3) Hypertension Current Visit: Yes Status: Chronic Qualifiers: Hypertension type: essential hypertension Qualified Code(s): I10 - Essential (primary) hypertension (4) Insulin dependent diabetes mellitus Current Visit: Yes Status: Chronic Comment: [id number] (5) Neuropathy of right lower extremity Current Visit: Yes Status: Chronic (6) PPD positive, treated Current Visit: Yes Status: Acute (7) Nicotine dependence Current Visit: Yes Status: Acute Qualifiers: Nicotine product type: cigarettes Substance use status: in withdrawal Qualified Code(s): F17.213 - Nicotine dependence, cigarettes, with withdrawal (8) Asthma Current Visit: Yes Status: Chronic Qualifiers: Asthma severity: mild Asthma persistence: unspecified Asthma complication type: with status asthmaticus Qualified Code(s): J45.902 - Unspecified asthma with status asthmaticus Cleared for Admission S - Detox or Rehab [facility] Level of Care: Medically Managed Detox Regimen/Protocol: Methadone Breathalyzer - Breathalyzer Breathalyzer: 0 POC Urine test - Test device test lot number: [id number] Expiration date: 05/04/20 - Control test control: Yes - Result Urine Test Results: Negative - NO line present Urine Drug Screen - Test Device Lot number: [id number] Expiration date: 08/03/20 - Control Is test valid?: Yes - Results Drug screen NEGATIVE: No Urine drug screen results: FEN-Fentanyl, MOP-Opiates, MTD-Methadone, BZO- Benzodiazepines Inpatient Rehab Admission - Rehab Decision to Admit Inpatient rehab admission?: No
[2018-12-29] MEDS ORDERED: MAG HYDROX/AL HYDROX/SIMETH 30 ML UNIT-DOSE CUP PO PRN (13:08)
[2018-12-29] MEDS ORDERED: MENTHOL/PHENOL 1 EACH UD MM PRN (13:08)
[2018-12-29] MEDS ORDERED: BISMUTH SUBSALICYLATE 524 MG/30 ML UD PO PRN (13:08)
[2018-12-29] MEDS ORDERED: NICOTINE POLACRILEX 4 MG GUM BUC PRN (13:08)
[2018-12-29] MEDS ORDERED: ACETAMINOPHEN 325 MG TABLET (FP) PO PRN (13:08)
[2018-12-29] MEDS ORDERED: MELATONIN 5 MG TABLETS PO PRN (13:08)
[2018-12-29] MEDS ORDERED: MAGNESIUM CITRATE 300 ML BOTTLE PO PRN (13:08)
[2018-12-29] MEDS ORDERED: MAGNESIUM HYDROX 2400MG/30ML ORAL SUSPENSION 30 ML CUP PO PRN (13:08)
[2018-12-29] MEDS ORDERED: METHADONE HCL 10 MG TABLET (FOR DETOX USE ONLY) PO ONE ×2 (13:30→23:00)
[2018-12-29] MEDS ORDERED: ALBUTEROL SO4 8 GM HFA INHALER IH SCH (14:00)
[2018-12-29] MEDS: clonazePAM 0.5 MG TABLET PO PRN ×2 (14:07→23:08)
[2018-12-29] MEDS: ALBUTEROL SO4 8 GM HFA INHALER IH SCH ×2 (17:36→22:57)
[2018-12-29] MEDS ORDERED: INSULIN SLIDING SCALE (NOVOLOG) 1 VIAL SQ ONE (17:38)
[2018-12-29] MEDS: INSULIN SLIDING SCALE (NOVOLOG) 1 VIAL SQ SCH ×2 (17:39→23:00)
[2018-12-29] MEDS: THIAMINE HCL 100 MG TABLET (FP) PO SCH (22:57)
[2018-12-29] MEDS: INSULIN (LEVEMIR) 100 UNITS/ML UNITS SQ SCH (23:03)
[2018-12-29] MEDS: cloNIDine HCL 0.1 MG TABLET PO PRN (23:03)
[2018-12-30] MEDS: INSULIN SLIDING SCALE (NOVOLOG) 1 VIAL SQ SCH ×4 (06:06→22:07)
[2018-12-30] MEDS: clonazePAM 0.5 MG TABLET PO PRN ×2 (08:07→17:47)
[2018-12-30] MEDS ORDERED: METHADONE HCL 10 MG TABLET (FOR DETOX USE ONLY) PO ONE (10:00)
--- NOTE | 2018-12-30 10:25 | CONSULT ---
[facility] Psychiatric Consult - Data Date of interview: 12/30/18 Admission source: Self-referred Identifying data: Patient is a 58 y/o female single, unemployed, mother of 4, domiciled SSI recipient Substance Abuse History: This is one of multiple Detox admission to this unit due to heroin addiction. She sniffed heroin 10-12 bags a day. She has had multiple relapsed for the same problem, her most recent in patient Detox admission was here last month. Patient has been on MMTP and Suboxone. She takes MTPP 20 mg po daily. Refer to addiction counselor note for more detailed drug history Medical History: Her medical history is consistent with HTN, IDDM, Bronchial Asthma, GERD. Surgical history of hysterectomy and oophorectomy Psychiatric History: Patient has a long standing history of mental illness, she suffered from Bipolar depression and anxiety. She had a prior psychiatric hospitalization in [facility] 3 years ago. She is medicated with Seroquel 300 mg hs and klonopin 1 mg daily. She attends " [facility] the [place]" and reported compliance with her medication treatment. Patient said: I don't feel good, I feels irritable and anxious, i have not slept Physical/Sexual Abuse/Trauma History: Patient denies history of abuse Mental Status Exam - Mental Status Exam Alert and Oriented to: Place, Person Cognitive Function: Grossly Intact Patient Appearance: Well Groomed Mood: Angry, Apprehensive Affect: Labile Patient Behavior: Restless, Cooperative Speech Pattern: Pressured Voice Loudness: Mildly Loud Thought Process: Intact, Goal Oriented Thought Disorder: Not Present Hallucinations: Denies Suicidal Ideation: Denies Homicidal Ideation: Denies Insight/Judgement: Poor Sleep: Poorly Appetite: Fair Muscle strength/Tone: Normal Gait/Station: Normal (Patient suddenly became tearful during the interview process) Psychiatric Findings - Problem List ([place] 1, 2,3) (1) Hypertension Current Visit: Yes Status: Chronic Qualifiers: Hypertension type: essential hypertension Qualified Code(s): I10 - Essential (primary) hypertension (2) Insulin dependent diabetes mellitus Current Visit: Yes Status: Chronic Comment: [id number] (3) Neuropathy of right lower extremity Current Visit: Yes Status: Chronic (4) Insomnia Current Visit: No Status: Acute (5) Opioid dependence Current Visit: No Status: Acute (6) Substance-induced sleep disorder Current Visit: No Status: Acute (7) History of bipolar disorder Current Visit: No Status: Chronic Comment: Non-adherent to OPD care. (8) Opioid dependence Current Visit: No Status: Chronic (9) Substance induced mood disorder Current Visit: No Status: Suspected
[2018-12-30] MEDS: ASPIRIN COATED 81 MG TABLET.EC PO SCH (10:47)
[2018-12-30] MEDS: PRENATAL VITAMINS W/ FOLIC ACID TABLET (FP) PO SCH (10:47)
[2018-12-30] MEDS: cloNIDine HCL 0.1 MG TABLET PO PRN (10:48)
[2018-12-30] MEDS: ALBUTEROL SO4 8 GM HFA INHALER IH SCH ×4 (10:49→22:08)
[2018-12-30 10:50] LABS: HEMATOCRIT 49.2 % (32.4-45.2); HEMOGLOBIN 16.2 GM/dL (10.7-15.3); MCH 31.6 pg (25.7-33.7); MCHC 32.9 g/dl (32.0-36.0); MEAN CELL VOLUME 95.8 fl (80-96); MEAN PLT VOLUME 10.3 fl (7.5-11.1); PLATELET COUNT 170 K/MM3 (134-434); RBC 5.14 M/mm3 (3.60-5.2); RDW 14.5 % (11.6-15.6); WHITE BLOOD COUNT 8.1 K/mm3 (4.0-10.0)
[2018-12-30 10:59] LABS: ALBUMIN 3.5 g/dl (3.4-5.0); ALK PHOS 89 U/L (45-117); ANION GAP 7 MMOL/L (8-16); BILIRUBIN,TOTAL 0.4 mg/dL (0.2-1); BLOOD UREA NITROGEN 15 mg/dL (7-18); CALCIUM 9.9 mg/dL (8.5-10.1); CHLORIDE 109 mmol/L (98-107); CO2 25 mmol/L (21-32); CREATININE 0.8 mg/dL (0.55-1.3); GLUCOSE,RANDOM 127 mg/dL (74-106); POTASSIUM 4.4 mmol/L (3.5-5.1); SGOT/AST 16 U/L (15-37); SGPT/ALT 17 U/L (13-61); SODIUM 140 mmol/L (136-145)
--- NOTE | 2018-12-30 14:15 | PN ---
BHS COWS - Scale Resting Pulse: 0= [place] 80 or Below Sweatin= No chills or Flushing Restless Observation: 1= Difficult to Sit Still Pupil Size: 2= Moderately Dilated Bone or Joint Aches: 2= Severe Diffuse Aches Runny Nose/ Eye Tearin= None GI Upset > 30mins: 0= None Tremor Observation of Outstretched Hands: 0= None Yawning Observation: 1= 1-2x During Session Anxiety or Irritability: 2=Irritable/Anxious Goose Flesh Skin: 0=Smooth Skin COWS Score: 8 BHS Progress Note (SOAP) Subjective: patient c/o anxiety, restlessness and body aches Objective: 12/30/18 14:13 Laboratory Tests 12/29/18 12/29/18 12/29/18 12:46 16:25 22:59 WBC RBC Hgb Hct MCV MCH MCHC RDW Plt Count MPV Sodium Potassium Chloride Carbon Dioxide Anion Gap BUN Creatinine Creat Clearance w eGFR POC Glucometer 100 230 129 Random Glucose Calcium Total Bilirubin AST ALT Alkaline Phosphatase Total Protein Albumin RPR Titer 12/30/18 12/30/18 12/30/18 05:47 07:00 07:00 WBC 8.1 RBC 5.14 Hgb 16.2 H Hct 49.2 H MCV 95.8 MCH 31.6 MCHC 32.9 RDW 14.5 Plt Count 170 D MPV 10.3 Sodium 140 Potassium 4.4 Chloride 109 H Carbon Dioxide 25 Anion Gap 7 L BUN 15 Creatinine 0.8 Creat Clearance w eGFR 74.20 POC Glucometer 97 Random Glucose 127 H Calcium 9.9 Total Bilirubin 0.4 AST 16 ALT 17 Alkaline Phosphatase 89 Total Protein 7.0 Albumin 3.5 RPR Titer 12/30/18 12/30/18 07:00 11:53 WBC RBC Hgb Hct MCV MCH MCHC RDW Plt Count MPV Sodium Potassium Chloride Carbon Dioxide Anion Gap BUN Creatinine Creat Clearance w eGFR POC Glucometer 163 Random Glucose Calcium Total Bilirubin AST ALT Alkaline Phosphatase Total Protein Albumin RPR Titer Nonreactive Vital Signs Temperature 97.7 F 12/30/18 09:43 Pulse Rate 69 12/30/18 09:43 Respiratory Rate 18 12/30/18 09:43 Blood Pressure 111/65 12/30/18 09:43 O2 Sat by Pulse Oximetry (%) pe: alert and oriented x 3 skin warm and dry +perrla, eoms intact, pupils moderately dilated ext full rom, amb ad cherry anxious Assessment: 12/30/18 14:14 withdrawal sx Plan: continue detox encourage fluids monitor
[2018-12-30] MEDS: hydrOXYzine PAMOATE 25 MG CAPSULE (FP) PO PRN ×2 (14:50→22:45)
--- NOTE | 2018-12-30 14:55 | PN ---
S Progress Note Note: Patient c/o anxiety. Has Klonipin order every 12 hours prn. Will order vistaril 25mg every 6 hours as needed for symptom of anxiety- first dose now. Continue to monitor clinically.
[2018-12-30] MEDS ORDERED: INSULIN SLIDING SCALE (NOVOLOG) 1 VIAL SQ ONE (17:32)
[2018-12-30] MEDS: METHOCARBAMOL 500 MG TABLET PO PRN (17:47)
[2018-12-30] MEDS: INSULIN (LEVEMIR) 100 UNITS/ML UNITS SQ SCH (22:06)
[2018-12-30] MEDS: THIAMINE HCL 100 MG TABLET (FP) PO SCH (22:07)
[2018-12-30] MEDS: QUEtiapine FUMARATE 200 MG TABLET PO SCH (22:08)
[2018-12-31] MEDS: INSULIN SLIDING SCALE (NOVOLOG) 1 VIAL SQ SCH ×4 (07:40→23:59)
[2018-12-31] MEDS ORDERED: METHADONE HCL 10 MG TABLET (FOR DETOX USE ONLY) PO ONE (10:00)
[2018-12-31] MEDS: ASPIRIN COATED 81 MG TABLET.EC PO SCH (10:39)
[2018-12-31] MEDS: PRENATAL VITAMINS W/ FOLIC ACID TABLET (FP) PO SCH (10:39)
[2018-12-31] MEDS: clonazePAM 0.5 MG TABLET PO PRN ×2 (10:41→21:55)
[2018-12-31] MEDS: METHOCARBAMOL 500 MG TABLET PO PRN ×2 (10:42→19:51)
[2018-12-31] MEDS: ALBUTEROL SO4 8 GM HFA INHALER IH SCH ×4 (12:16→23:59)
--- NOTE | 2018-12-31 14:51 | PN ---
BHS COWS - Scale Resting Pulse: 0= [place] 80 or Below Sweatin= Chills/Flushing Restless Observation: 1= Difficult to Sit Still Pupil Size: 0= Normal to Room Light Bone or Joint Aches: 2= Severe Diffuse Aches Runny Nose/ Eye Tearin= None GI Upset > 30mins: 2= Nausea/Diarrhea Tremor Observation of Outstretched Hands: 2= Slight Tremor Visible Yawning Observation: 1= 1-2x During Session Anxiety or Irritability: 4=Extreme Anxiety Goose Flesh Skin: 0=Smooth Skin COWS Score: 13 BHS Progress Note (SOAP) Subjective: Constipation, Anxious, Nausea, Stomach Cramping, Body Aches. Objective: PATIENT A & O X 3, OBSERVED AMBULATING ON UNIT UNASSISTED. IN NO ACUTE DISTRESS. 12/31/18 14:50 Vital Signs Temperature 97.9 F 12/31/18 13:52 Pulse Rate 63 12/31/18 13:52 Respiratory Rate 16 12/31/18 13:52 Blood Pressure 121/74 12/31/18 13:52 O2 Sat by Pulse Oximetry (%) Laboratory Tests 12/29/18 12/29/18 12/29/18 12:46 16:25 22:59 WBC RBC Hgb Hct MCV MCH MCHC RDW Plt Count MPV Sodium Potassium Chloride Carbon Dioxide Anion Gap BUN Creatinine Creat Clearance w eGFR POC Glucometer 100 230 129 Random Glucose Calcium Total Bilirubin AST ALT Alkaline Phosphatase Total Protein Albumin RPR Titer 12/30/18 12/30/18 12/30/18 05:47 07:00 07:00 WBC 8.1 RBC 5.14 Hgb 16.2 H Hct 49.2 H MCV 95.8 MCH 31.6 MCHC 32.9 RDW 14.5 Plt Count 170 D MPV 10.3 Sodium 140 Potassium 4.4 Chloride 109 H Carbon Dioxide 25 Anion Gap 7 L BUN 15 Creatinine 0.8 Creat Clearance w eGFR 74.20 POC Glucometer 97 Random Glucose 127 H Calcium 9.9 Total Bilirubin 0.4 AST 16 ALT 17 Alkaline Phosphatase 89 Total Protein 7.0 Albumin 3.5 RPR Titer 12/30/18 12/30/18 12/30/18 07:00 11:53 16:41 WBC RBC Hgb Hct MCV MCH MCHC RDW Plt Count MPV Sodium Potassium Chloride Carbon Dioxide Anion Gap BUN Creatinine Creat Clearance w eGFR POC Glucometer 163 165 Random Glucose Calcium Total Bilirubin AST ALT Alkaline Phosphatase Total Protein Albumin RPR Titer Nonreactive 12/30/18 12/31/18 12/31/18 21:57 06:21 11:40 WBC RBC Hgb Hct MCV MCH MCHC RDW Plt Count MPV Sodium Potassium Chloride Carbon Dioxide Anion Gap BUN Creatinine Creat Clearance w eGFR POC Glucometer 126 68 107 Random Glucose Calcium Total Bilirubin AST ALT Alkaline Phosphatase Total Protein Albumin RPR Titer LABS NOTED. Assessment: 12/31/18 14:50 WITHDRAWAL SYMPTOMS. Plan: CONTINUE DETOX. INCREASE DAILY PO FLUID / WATER INTAKE.
[2018-12-31] MEDS: hydrOXYzine PAMOATE 25 MG CAPSULE (FP) PO PRN (15:12)
[2018-12-31] MEDS: THIAMINE HCL 100 MG TABLET (FP) PO SCH (21:52)
[2018-12-31] MEDS: QUEtiapine FUMARATE 200 MG TABLET PO SCH (21:52)
[2018-12-31] MEDS: INSULIN (LEVEMIR) 100 UNITS/ML UNITS SQ SCH (23:59)
[2019-01-01] MEDS: INSULIN SLIDING SCALE (NOVOLOG) 1 VIAL SQ SCH ×4 (07:45→21:54)
[2019-01-01] MEDS ORDERED: METHADONE HCL 10 MG TABLET (FOR DETOX USE ONLY) PO ONE (10:00)
[2019-01-01] MEDS: ALBUTEROL SO4 8 GM HFA INHALER IH SCH ×4 (10:17→21:54)
[2019-01-01] MEDS: PRENATAL VITAMINS W/ FOLIC ACID TABLET (FP) PO SCH (10:17)
[2019-01-01] MEDS: ASPIRIN COATED 81 MG TABLET.EC PO SCH (10:17)
[2019-01-01] MEDS: hydrOXYzine PAMOATE 25 MG CAPSULE (FP) PO PRN ×2 (10:20→17:10)
--- NOTE | 2019-01-01 12:12 | PN ---
BHS COWS - Scale Resting Pulse: 0= [place] 80 or Below Sweatin= Chills/Flushing Restless Observation: 0= Sits Still Pupil Size: 0= Normal to Room Light Bone or Joint Aches: 1= Mild Discomfort Runny Nose/ Eye Tearin= Nasal Congestion GI Upset > 30mins: 0= None Tremor Observation of Outstretched Hands: 1= Tremor [place], Not Seen Yawning Observation: 1= 1-2x During Session Anxiety or Irritability: 1=Feels Anxious/Irritable Goose Flesh Skin: 0=Smooth Skin COWS Score: 6 BHS Progress Note (SOAP) Subjective: tired sweats body aches Objective: 01/01/19 12:11 Vital Signs Temperature 98.6 F 01/01/19 10:30 Pulse Rate 61 01/01/19 10:30 Respiratory Rate 18 01/01/19 10:30 Blood Pressure 109/59 L 01/01/19 10:30 O2 Sat by Pulse Oximetry (%) [id number] ambulating no acute distress Assessment: 01/01/19 12:12 mild withdrawal sx Plan: continue detox increase fluids d/c in am
[2019-01-01] MEDS: clonazePAM 0.5 MG TABLET PO PRN (12:14)
[2019-01-01] MEDS: METHOCARBAMOL 500 MG TABLET PO PRN ×2 (14:38→21:54)
[2019-01-01] MEDS ORDERED: GABAPENTIN 100 MG CAPSULE (FP) PO ONE (21:45)
--- NOTE | 2019-01-01 21:46 | PN ---
S Progress Note Note: Vital Signs Temperature 98.1 F 01/01/19 21:35 Pulse Rate 62 01/01/19 21:35 Respiratory Rate 18 01/01/19 21:35 Blood Pressure 110/70 01/01/19 21:35 O2 Sat by Pulse Oximetry (%) withdrawal sx anxious one time dose gabapentin 100 mg increase fluids continue to monitor
[2019-01-01] MEDS: QUEtiapine FUMARATE 200 MG TABLET PO SCH (21:53)
[2019-01-01] MEDS: THIAMINE HCL 100 MG TABLET (FP) PO SCH (21:53)
[2019-01-01] MEDS: INSULIN (LEVEMIR) 100 UNITS/ML UNITS SQ SCH (21:57)
[2019-01-02] MEDS ORDERED: METHADONE HCL 5 MG TABLET (FOR DETOX USE ONLY) PO ONE (06:00)
[2019-01-02] MEDS: INSULIN SLIDING SCALE (NOVOLOG) 1 VIAL SQ SCH (06:35)
--- NOTE | 2019-01-02 09:07 | DS ---
[facility] Detox Discharge Summary Admission Date: 12/29/18 Discharge Date: 01/02/19 - History Present History: Cannabis Dependence, Opioid Dependence - Physical Exam Results Vital Signs: Vital Signs Temperature 98.4 F 01/02/19 07:31 Pulse Rate 52 L 01/02/19 07:31 Respiratory Rate 18 01/02/19 07:31 Blood Pressure 132/76 01/02/19 07:31 O2 Sat by Pulse Oximetry (%) - Treatment Hospital Course: Detox Protocol Followed, Detoxed Safely, Responded well, Discharged Condition Good, Rehab Referral Accepted - Medication Discharge Medications: Ambulatory Orders Aspirin [Aspirin EC] 81 mg PO DAILY 01/25/18 Insulin (LOG) Aspart [NovoLOG -] See Protocol SQ QID 01/25/18 Insulin Glargine,Hum.rec.anlog [Lantus] 25 units SQ HS 01/25/18 Albuterol Sulfate Inhaler - [Ventolin HFA Inhaler -] 1 - 2 inh PO QID #1 inhaler 01/30/18 Quetiapine Fumarate [Seroquel -] 300 mg PO HS 11/28/18 - Diagnosis (1) Nicotine dependence Status: Chronic Qualifiers: Nicotine product type: cigarettes Substance use status: uncomplicated Qualified Code(s): F17.210 - Nicotine dependence, cigarettes, uncomplicated (2) PPD positive, treated Status: Chronic (3) Asthma Status: Chronic Qualifiers: Asthma severity: mild Asthma persistence: unspecified Asthma complication type: with status asthmaticus Qualified Code(s): J45.902 - Unspecified asthma with status asthmaticus (4) Hypercholesteremia Status: Chronic (5) Hypertension Status: Chronic Qualifiers: Hypertension type: essential hypertension Qualified Code(s): I10 - Essential (primary) hypertension (6) Insulin dependent diabetes mellitus Status: Chronic (7) Neuropathy of right lower extremity Status: Chronic (8) Opioid dependence with withdrawal Status: Chronic (9) Cannabis dependence Status: Acute (10) History of hysterectomy Status: Acute (11) Insomnia Status: Acute (12) Opioid dependence Status: Acute (13) Opioid dependence with withdrawal Status: Acute (14) Substance-induced sleep disorder Status: Acute (15) Vertigo Status: Acute (16) Weight loss Status: Acute (17) Back pain Status: Chronic Qualifiers: Back pain location: low back pain (18) Bipolar disorder Status: Chronic (19) History of bipolar disorder Status: Chronic (20) Non-compliant behavior Status: Chronic (21) Opioid dependence Status: Chronic (22) Substance induced mood disorder Status: Suspected - AMA Did Patient Leave Against Medical Advice: No (declined rehab; going home to [place])
[2019-01-02 09:15] VITALS: BP 141/87; PULSE 78; TEMP 98
== END 2019-01-02 08:54 | disposition home or self-care (01) | DRG 897 ==
LOC: YASAS 10:23 → Y6N 13:18
PROVIDERS: ADMIT Surgery; ATTEND Surgery
PROC: HZ2ZZZZ Detoxification Services for Substance Abuse Treatment (ICD-10-PCS; principal; 2018-12-29)
DX: F11.23 Opioid dependence with withdrawal (principal); F19.282 Other psychoactive substance dependence with psychoactive substance-induced sleep disorder; J45.902 Unspecified asthma with status asthmaticus; F12.20 Cannabis dependence, uncomplicated; F31.9 Bipolar disorder, unspecified; F19.24 Other psychoactive substance dependence with psychoactive substance-induced mood disorder; I10 Essential (primary) hypertension; E78.00 Pure hypercholesterolemia, unspecified; E11.9 Type 2 diabetes mellitus without complications; Z79.4 Long term (current) use of insulin; G47.00 Insomnia, unspecified; G62.9 Polyneuropathy, unspecified; M54.5 Low back pain; R42 Dizziness and giddiness; R63.4 Abnormal weight loss; Z68.27 Body mass index [BMI] 27.0-27.9, adult; R76.11 Nonspecific reaction to tuberculin skin test without active tuberculosis; Z91.19 Patient's noncompliance with other medical treatment and regimen
CPT/HCPCS: 36415; 80053; 81025; 82962; 85027; 86593; J0735

== ENCOUNTER 2019-01-07 10:26 | Inpatient (IN) | payer OTHER ==
[2019-01-07 12:10] VITALS: BMI 27.8
--- NOTE | 2019-01-07 14:09 | HP ---
[facility] Rehab Assess/Revision - Admission History Admitted to Rehab from: [facility] Date of Admission to Rehab: 01/07/19 - Vital signs Vital Signs: Vital Signs Period Temp Pulse Resp BP Sys/Zuniga Pulse Ox Last 24 Hr 97.2 F-97.2 F 69-69 20-20 99-99/66-66 - Findings Detox History & Physical reviewed: Yes Concur with findings: Yes Comments/Additional Findings: for rehab as protocol Inpatient Rehab Admission - Rehab Decision to Admit Inpatient rehab admission?: Yes - Initial Determination Are CD services needed?: Yes Free of communicable disease: Yes Not in need of hospitalization: Yes - Rehab Admission Criteria Previous failed treatment: Yes Poor recovery environment: Yes Comorbidities: Yes Lacks judgement: No Patient is meeting Inpatient Rehab admission criteria:: Yes
[2019-01-07] MEDS ORDERED: LOPERAMIDE HCL 2 MG CAPSULE PO PRN (14:10)
[2019-01-07] MEDS ORDERED: guaiFENesin 200 MG/10 ML 10 ML UNIT-DOSE CUPS PO PRN (14:10)
[2019-01-07] MEDS ORDERED: ACETAMINOPHEN 325 MG TABLET (FP) PO PRN (14:10)
[2019-01-07] MEDS ORDERED: NICOTINE POLACRILEX 2 MG GUM BUC PRN (14:10)
[2019-01-07] MEDS ORDERED: MAGNESIUM HYDROX 2400MG/30ML ORAL SUSPENSION 30 ML CUP PO PRN (14:10)
[2019-01-07] MEDS ORDERED: MENTHOL/PHENOL 1 EACH UD MM PRN (14:10)
[2019-01-07] MEDS ORDERED: MAG HYDROX/AL HYDROX/SIMETH 30 ML UNIT-DOSE CUP PO PRN (14:10)
[2019-01-07] MEDS ORDERED: IBUPROFEN 400 MG TABLET (FP) PO PRN (14:10)
[2019-01-07] MEDS ORDERED: MAGNESIUM CITRATE 300 ML BOTTLE PO PRN (14:10)
[2019-01-07] MEDS ORDERED: ALBUTEROL SO4 8 GM HFA INHALER IH PRN (14:14)
[2019-01-07] MEDS ORDERED: INSULIN (NOVOLOG) ASPART 100 UNITS/ML 10ML VIAL ONE (16:59)
[2019-01-07] MEDS: Insulin (LOG) Aspart 100 UNITS/ML VIAL SQ SCH (17:50)
[2019-01-07] MEDS: METHOCARBAMOL 500 MG TABLET PO PRN (19:00)
[2019-01-07] MEDS: P-EPHED 60MG/TRIPROLIDI 2.5MG TABLET PO PRN (19:04)
[2019-01-07] MEDS: MELATONIN 5 MG TABLETS PO PRN ×2 (21:20→21:32)
[2019-01-07] MEDS: THIAMINE HCL 100 MG TABLET (FP) PO SCH ×2 (21:21→21:32)
[2019-01-07] MEDS: hydrOXYzine PAMOATE 50 MG CAPSULE (FP) PO PRN (21:21)
[2019-01-07] MEDS ORDERED: INSULIN (LEVEMIR) 100 UNITS/ML UNITS SQ ONE (21:21)
[2019-01-07] MEDS: INSULIN (LEVEMIR) 100 UNITS/ML UNITS SQ SCH ×2 (21:22→21:32)
[2019-01-07] MEDS ORDERED: Insulin (LOG) Aspart 100 UNITS/ML VIAL SQ SCH (22:00)
[2019-01-08] MEDS: Insulin (LOG) Aspart 100 UNITS/ML VIAL SQ SCH ×3 (07:11→17:45)
--- NOTE | 2019-01-08 08:32 | CONSULT ---
[facility] Psychiatric Consult - Data Date of interview: 01/08/19 Admission source: 6N Identifying data: Ms Nicholson is a 58 years old single female, mother of 4 children, unemployed on SSI, homeless seeking detox treatment for opioid Substance Abuse History: Reports history of heroin use. Refer to addiction counselor's summary for further information Medical History: Significant for hypertension, diabetes mellitus, bronchial asthma, GERD, history of transient ischemic attacks in 2012 treatment for PPD+ and multiple surgeries(tubal ligation, left oophorectomy for mass in 2013, vaginal hysterectomy in 2015). Smokes cigarettes 1 ppd Psychiatric History: Patient reports that her first psychiatric contact was at age 42 when she was diagnosed with Bipolar Disorder and Depression. Reports multiple psychiatric hospitalizations in facilities in [place] and most recently earlier in 2019 at [facility] in [facility]. Reports seeing a psychiatrist at a clinic located on [facility] and she is prescribed Seroquel 300 mg po HS, Celexa 10 mg po daily and Klonopin 0.5 mg po TID prn. She saw Dr Niño on 12/30/18 while in detox and she was continued on Seroquel and Celexa. Denies previous suicidal attempt. At present, denies psychotic, manic or depressive symptoms, S/H ideations. However , reports feeling anxious and sleeping poorly. Physical/Sexual Abuse/Trauma History: Denies history of emotional, physical or sexual as well as DV relationship Additional Comment: Reports history of one previous felony conviction. Denies being on parole/probation Mental Status Exam - Mental Status Exam Alert and Oriented to: Time, Place, Person Cognitive Function: Fair Patient Appearance: Well Groomed Mood: Anxious Affect: Appropriate Patient Behavior: Cooperative Speech Pattern: Clear Voice Loudness: Normal Thought Process: Intact Thought Disorder: Not Present Hallucinations: Denies Suicidal Ideation: Denies Homicidal Ideation: Denies Insight/Judgement: Poor Sleep: Poorly Appetite: Poor Muscle strength/Tone: Normal Gait/Station: Normal Psychiatric Findings - Problem List ([place] 1, 2,3) (1) Bipolar II disorder Current Visit: Yes Status: Chronic (2) Substance-induced anxiety disorder Current Visit: Yes Status: Acute (3) Substance-induced sleep disorder Current Visit: Yes Status: Acute (4) Opioid dependence Current Visit: No Status: Acute (5) Nicotine dependence Current Visit: No Status: Chronic Qualifiers: Nicotine product type: cigarettes Substance use status: uncomplicated Qualified Code(s): F17.210 - Nicotine dependence, cigarettes, uncomplicated (6) Asthma Current Visit: No Status: Chronic Qualifiers: Asthma severity: mild Asthma persistence: unspecified Asthma complication type: with status asthmaticus Qualified Code(s): J45.902 - Unspecified asthma with status asthmaticus (7) Hypercholesteremia Current Visit: No Status: Chronic (8) Hypertension Current Visit: No Status: Chronic Qualifiers: Hypertension type: essential hypertension Qualified Code(s): I10 - Essential (primary) hypertension (9) Insulin dependent diabetes mellitus Current Visit: No Status: Chronic Comment: [id number] (10) Neuropathy of right lower extremity Current Visit: No Status: Chronic (11) PPD positive, treated Current Visit: No Status: Resolved (12) Back pain Current Visit: No Status: Chronic Qualifiers: Back pain location: low back pain - Initial Treatment Plan Initial Treatment Plan: 1) Continue Seroquel 300 mg po HS and Celexa 10 mg po daily. 2) Continue inpatient detoxification
[2019-01-08] MEDS ORDERED: PRENATAL VITAMINS W/ FOLIC ACID TABLET (FP) PO SCH (10:00)
[2019-01-08] MEDS ORDERED: ASPIRIN COATED 81 MG TABLET.EC PO SCH (10:00)
[2019-01-08] MEDS: METHOCARBAMOL 500 MG TABLET PO PRN ×2 (10:28→20:09)
[2019-01-08] MEDS: hydrOXYzine PAMOATE 50 MG CAPSULE (FP) PO PRN ×3 (10:28→21:29)
[2019-01-08] MEDS ORDERED: CITALOPRAM HYDROBROMIDE 10 MG TABLET (FP) PO SCH (11:00)
[2019-01-08] MEDS ORDERED: INSULIN (NOVOLOG) ASPART 100 UNITS/ML 10ML VIAL ONE (17:02)
[2019-01-08] MEDS: P-EPHED 60MG/TRIPROLIDI 2.5MG TABLET PO PRN (20:08)
[2019-01-08] MEDS: INSULIN (LEVEMIR) 100 UNITS/ML UNITS SQ SCH (21:28)
[2019-01-08] MEDS: MELATONIN 5 MG TABLETS PO PRN (21:30)
[2019-01-08] MEDS ORDERED: QUEtiapine FUMARATE 300 MG TABLET PO SCH (22:00)
[2019-01-08] MEDS ORDERED: PT OWN MED DRAWER 7, Y5N ONE (22:03)
[2019-01-09] MEDS: THIAMINE HCL 100 MG TABLET (FP) PO SCH (00:14)
[2019-01-09 06:58] VITALS: BP 111/84; PULSE 99; TEMP 97.8
[2019-01-09] MEDS: Insulin (LOG) Aspart 100 UNITS/ML VIAL SQ SCH (07:04)
--- NOTE | 2019-01-09 09:28 | PN ---
BHS Progress Note (SOAP) Subjective: patient is leaving AMA for personal reasons. Objective: No neurological deficits noted. Heart rate regular. lungs clear, Abd soft, non- tender, non-distended. 01/09/19 09:27 Vital Signs (72 hours) 01/07/19 01/07/19 01/07/19 12:06 12:47 15:16 Temperature 97.2 F L 97.2 F L 97.5 F L Pulse Rate 69 69 58 L Respiratory 20 20 18 Rate Blood Pressure 99/66 99/66 99/65 01/08/19 01/08/19 01/08/19 01:08 03:30 07:10 Temperature 97.9 F Pulse Rate 93 H Respiratory 18 18 18 Rate Blood Pressure 156/90 01/08/19 01/09/19 01/09/19 18:00 00:30 03:30 Temperature 97.7 F Pulse Rate 69 Respiratory 18 16 16 Rate Blood Pressure 162/112 H 01/09/19 06:56 Temperature 97.8 F Pulse Rate 99 H Respiratory 18 Rate Blood Pressure 111/84 01/09/19 09:29 Assessment: Discharge dx: Opioid dependence, chronic HTN Diabetes, insulin dependent Hypercholestremia 01/09/19 09:30 Medically stable for discharge. 01/09/19 09:58 Plan: patient does not have a plan or primary care provider. Encouraged patient to seek both. States she does not need medications, she has all she needs in her belongings.
== END 2019-01-09 09:30 | disposition left against medical advice (07) | DRG 894 ==
LOC: YASAS 10:26 → Y3E 14:11
PROVIDERS: ADMIT Neuromusculoskeletal Medicine & OMM; ATTEND Neuromusculoskeletal Medicine & OMM
PROC: HZ42ZZZ Group Counseling for Substance Abuse Treatment, Cognitive-Behavioral (ICD-10-PCS; principal; 2019-01-07)
DX: F11.20 Opioid dependence, uncomplicated (principal); F31.81 Bipolar II disorder; F19.280 Other psychoactive substance dependence with psychoactive substance-induced anxiety disorder; F19.282 Other psychoactive substance dependence with psychoactive substance-induced sleep disorder; J45.902 Unspecified asthma with status asthmaticus; F17.210 Nicotine dependence, cigarettes, uncomplicated; I10 Essential (primary) hypertension; E11.42 Type 2 diabetes mellitus with diabetic polyneuropathy; Z79.4 Long term (current) use of insulin; K21.9 Gastro-esophageal reflux disease without esophagitis; R76.11 Nonspecific reaction to tuberculin skin test without active tuberculosis; M54.5 Low back pain; G89.29 Other chronic pain; Z86.73 Personal history of transient ischemic attack (TIA), and cerebral infarction without residual deficits; Z59.0 Homelessness
CPT/HCPCS: 82962

== ENCOUNTER 2019-02-02 09:30 | Inpatient (IN) | payer OTHER ==
[2019-02-02 10:29] VITALS: BMI 26.2
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
[2019-02-02] MEDS ORDERED: MAGNESIUM HYDROX 2400MG/30ML ORAL SUSPENSION 30 ML CUP PO PRN (11:37)
[2019-02-02] MEDS ORDERED: MAG HYDROX/AL HYDROX/SIMETH 30 ML UNIT-DOSE CUP PO PRN (11:37)
[2019-02-02] MEDS ORDERED: MENTHOL/PHENOL 1 EACH UD MM PRN (11:37)
[2019-02-02] MEDS ORDERED: IBUPROFEN 400 MG TABLET (FP) PO PRN (11:37)
[2019-02-02] MEDS ORDERED: BISMUTH SUBSALICYLATE 524 MG/30 ML UD PO PRN (11:37)
[2019-02-02] MEDS ORDERED: QUEtiapine FUMARATE 50 MG TABLET PO PRN (11:37)
[2019-02-02] MEDS ORDERED: MELATONIN 5 MG TABLETS PO PRN (11:37)
[2019-02-02] MEDS ORDERED: ACETAMINOPHEN 325 MG TABLET (FP) PO PRN ×2 (11:37)
[2019-02-02] MEDS ORDERED: MAGNESIUM CITRATE 300 ML BOTTLE PO PRN (11:37)
[2019-02-02] MEDS ORDERED: METHOCARBAMOL 500 MG TABLET PO PRN (11:37)
[2019-02-02] MEDS ORDERED: NICOTINE POLACRILEX 2 MG GUM BUC PRN (11:37)
[2019-02-02] MEDS ORDERED: ONDANSETRON *ODT* 4 MG TABLET SL PRN (11:37)
[2019-02-02] MEDS ORDERED: cloNIDine HCL 0.1 MG TABLET PO PRN (11:37)
[2019-02-02] MEDS ORDERED: DICYCLOMINE HCL 10 MG CAPSULE PO PRN (11:37)
[2019-02-02] MEDS ORDERED: METHADONE HCL 10 MG TABLET (FOR DETOX USE ONLY) PO ONE ×2 (12:30→23:00)
[2019-02-02] MEDS: NICOTINE 14 MG/24 HOURS TOPICAL PATCH TD SCH (12:49)
[2019-02-02] MEDS: INSULIN SLIDING SCALE (NOVOLOG) 1 VIAL SQ SCH ×2 (20:12→23:20)
[2019-02-02] MEDS: THIAMINE HCL 100 MG TABLET (FP) PO SCH (23:18)
[2019-02-02] MEDS: INSULIN (LEVEMIR) 100 UNITS/ML UNITS SQ SCH (23:20)
[2019-02-03] MEDS: hydrOXYzine PAMOATE 50 MG CAPSULE (FP) PO PRN (05:22)
[2019-02-03] MEDS: INSULIN SLIDING SCALE (NOVOLOG) 1 VIAL SQ SCH ×3 (06:58→18:11)
[2019-02-03] MEDS ORDERED: METHADONE HCL 5 MG TABLET (FOR DETOX USE ONLY) PO ONE (10:00)
[2019-02-03] MEDS: PRENATAL VITAMINS W/ FOLIC ACID TABLET (FP) PO SCH (10:18)
[2019-02-03] MEDS: NICOTINE 14 MG/24 HOURS TOPICAL PATCH TD SCH (10:18)
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
[2019-02-03 10:54] LABS: HEMATOCRIT 42.1 % (32.4-45.2); HEMOGLOBIN 13.8 GM/dL (10.7-15.3); MCH 30.9 pg (25.7-33.7); MCHC 32.7 g/dl (32.0-36.0); MEAN CELL VOLUME 94.5 fl (80-96); MEAN PLT VOLUME 9.4 fl (7.5-11.1); PLATELET COUNT 182 K/MM3 (134-434); RBC 4.46 M/mm3 (3.60-5.2); RDW 15.3 % (11.6-15.6); WHITE BLOOD COUNT 6.8 K/mm3 (4.0-10.0)
[2019-02-03 10:55] LABS: ALBUMIN 3.3 g/dl (3.4-5.0); BILIRUBIN,TOTAL 0.2 mg/dL (0.2-1); CALCIUM 9.4 mg/dL (8.5-10.1); CREATININE 0.9 mg/dL (0.55-1.3); POTASSIUM 4.3 mmol/L (3.5-5.1); TOT PROT 6.1 g/dl (6.4-8.2)
[2019-02-03] MEDS: CITALOPRAM HYDROBROMIDE 10 MG TABLET (FP) PO SCH (11:37)
--- NOTE | 2019-02-03 16:07 | PN ---
BHS COWS - Scale Resting Pulse: 0= [place] 80 or Below Sweatin= Chills/Flushing Restless Observation: 3= Extraneous Movement Pupil Size: 0= Normal to Room Light Bone or Joint Aches: 2= Severe Diffuse Aches Runny Nose/ Eye Tearin= Runny Nose/Eyes GI Upset > 30mins: 3= Vomiting/Diarrhea Tremor Observation of Outstretched Hands: 2= Slight Tremor Visible Yawning Observation: 0= None Anxiety or Irritability: 2=Irritable/Anxious Goose Flesh Skin: 0=Smooth Skin COWS Score: 15 BHS Progress Note (SOAP) Subjective: Interrupted sleep, tremor, chills, sweating Objective: 02/03/19 16:08 Last Vital Signs Temp Pulse Resp BP Pulse Ox 97.7 F 69 18 100/59 L 02/03/19 13:46 02/03/19 13:46 02/03/19 13:46 02/03/19 13:46 Laboratory Tests 02/02/19 02/02/19 02/02/19 11:27 11:59 16:47 WBC RBC Hgb Hct MCV MCH MCHC RDW Plt Count MPV Sodium Potassium Chloride Carbon Dioxide Anion Gap BUN Creatinine Est GFR (CKD-EPI)AfAm Est GFR (CKD-EPI)NonAf POC Glucometer 103 167 Random Glucose Calcium Total Bilirubin AST ALT Alkaline Phosphatase Total Protein Albumin POC Urine HCG, Qual Negative RPR Titer 02/02/19 02/03/19 02/03/19 21:47 05:20 07:40 WBC RBC Hgb Hct MCV MCH MCHC RDW Plt Count MPV Sodium 142 Potassium 4.3 Chloride 108 H Carbon Dioxide 28 Anion Gap 6 L BUN 22 H Creatinine 0.9 Est GFR (CKD-EPI)AfAm 82.84 Est GFR (CKD-EPI)NonAf 71.48 POC Glucometer 138 113 Random Glucose 91 Calcium 9.4 Total Bilirubin 0.2 AST 11 L ALT 15 Alkaline Phosphatase 96 Total Protein 6.1 L Albumin 3.3 L POC Urine HCG, Qual RPR Titer 02/03/19 02/03/19 07:40 07:40 WBC 6.8 RBC 4.46 Hgb 13.8 Hct 42.1 MCV 94.5 MCH 30.9 MCHC 32.7 RDW 15.3 Plt Count 182 MPV 9.4 Sodium Potassium Chloride Carbon Dioxide Anion Gap BUN Creatinine Est GFR (CKD-EPI)AfAm Est GFR (CKD-EPI)NonAf POC Glucometer Random Glucose Calcium Total Bilirubin AST ALT Alkaline Phosphatase Total Protein Albumin POC Urine HCG, Qual RPR Titer Nonreactive Labs reviewed: elevated glucose, bun 22 Assessment: 02/03/19 16:11 Withdrawal symptoms Noted with hyperglycemia and azotemia Plan: Continue detox Hyperglycemia: secondary to DMT2; continue diabetic regimen Azotemia: encouraged PO water hydration
[2019-02-03] MEDS: QUEtiapine FUMARATE 300 MG TABLET PO SCH (22:27)
[2019-02-03] MEDS: THIAMINE HCL 100 MG TABLET (FP) PO SCH (22:27)
[2019-02-03] MEDS: clonazePAM 0.5 MG TABLET PO PRN (22:30)
[2019-02-03] MEDS: INSULIN (LEVEMIR) 100 UNITS/ML UNITS SQ SCH (22:32)
[2019-02-04] MEDS: INSULIN SLIDING SCALE (NOVOLOG) 1 VIAL SQ SCH ×4 (00:26→17:15)
[2019-02-04] MEDS ORDERED: METHADONE HCL 10 MG TABLET (FOR DETOX USE ONLY) PO ONE (10:00)
[2019-02-04] MEDS: PRENATAL VITAMINS W/ FOLIC ACID TABLET (FP) PO SCH (10:29)
[2019-02-04] MEDS: CITALOPRAM HYDROBROMIDE 10 MG TABLET (FP) PO SCH (10:29)
[2019-02-04] MEDS: NICOTINE 14 MG/24 HOURS TOPICAL PATCH TD SCH (10:30)
[2019-02-04] MEDS: clonazePAM 0.5 MG TABLET PO PRN ×2 (10:32→22:06)
--- NOTE | 2019-02-04 10:33 | PN ---
BHS COWS - Scale Resting Pulse: 0= [place] 80 or Below Sweatin=Flushed/Facial Moisture Restless Observation: 1= Difficult to Sit Still Pupil Size: 0= Normal to Room Light Bone or Joint Aches: 2= Severe Diffuse Aches Runny Nose/ Eye Tearin= Nasal Congestion GI Upset > 30mins: 0= None Tremor Observation of Outstretched Hands: 2= Slight Tremor Visible Yawning Observation: 2= >3x During Session Anxiety or Irritability: 2=Irritable/Anxious Goose Flesh Skin: 0=Smooth Skin COWS Score: 12 S Progress Note (SOAP) Subjective: sweats shakes interrupted sleep body aches anxiety Objective: 02/04/19 10:31 Vital Signs Temperature 97.7 F 02/04/19 09:17 Pulse Rate 77 02/04/19 09:17 Respiratory Rate 18 02/04/19 09:17 Blood Pressure 120/77 02/04/19 09:17 O2 Sat by Pulse Oximetry (%) Laboratory Tests 02/02/19 02/02/19 02/02/19 11:27 11:59 16:47 WBC RBC Hgb Hct MCV MCH MCHC RDW Plt Count MPV Sodium Potassium Chloride Carbon Dioxide Anion Gap BUN Creatinine Est GFR (CKD-EPI)AfAm Est GFR (CKD-EPI)NonAf POC Glucometer 103 167 Random Glucose Calcium Total Bilirubin AST ALT Alkaline Phosphatase Total Protein Albumin POC Urine HCG, Qual Negative RPR Titer 02/02/19 02/03/19 02/03/19 21:47 05:20 07:40 WBC RBC Hgb Hct MCV MCH MCHC RDW Plt Count MPV Sodium 142 Potassium 4.3 Chloride 108 H Carbon Dioxide 28 Anion Gap 6 L BUN 22 H Creatinine 0.9 Est GFR (CKD-EPI)AfAm 82.84 Est GFR (CKD-EPI)NonAf 71.48 POC Glucometer 138 113 Random Glucose 91 Calcium 9.4 Total Bilirubin 0.2 AST 11 L ALT 15 Alkaline Phosphatase 96 Total Protein 6.1 L Albumin 3.3 L POC Urine HCG, Qual RPR Titer 02/03/19 02/03/19 02/03/19 07:40 07:40 16:30 WBC 6.8 RBC 4.46 Hgb 13.8 Hct 42.1 MCV 94.5 MCH 30.9 MCHC 32.7 RDW 15.3 Plt Count 182 MPV 9.4 Sodium Potassium Chloride Carbon Dioxide Anion Gap BUN Creatinine Est GFR (CKD-EPI)AfAm Est GFR (CKD-EPI)NonAf POC Glucometer 102 Random Glucose Calcium Total Bilirubin AST ALT Alkaline Phosphatase Total Protein Albumin POC Urine HCG, Qual RPR Titer Nonreactive 02/03/19 02/04/19 22:25 06:14 WBC RBC Hgb Hct MCV MCH MCHC RDW Plt Count MPV Sodium Potassium Chloride Carbon Dioxide Anion Gap BUN Creatinine Est GFR (CKD-EPI)AfAm Est GFR (CKD-EPI)NonAf POC Glucometer 123 74 Random Glucose Calcium Total Bilirubin AST ALT Alkaline Phosphatase Total Protein Albumin POC Urine HCG, Qual RPR Titer aaox3 ambulating no acute distress Assessment: 02/04/19 10:32 withdrawal sx Plan: continue detox increase fluids
[2019-02-04] MEDS: hydrOXYzine PAMOATE 50 MG CAPSULE (FP) PO PRN (14:30)
[2019-02-04] MEDS: THIAMINE HCL 100 MG TABLET (FP) PO SCH (22:07)
[2019-02-04] MEDS: QUEtiapine FUMARATE 300 MG TABLET PO SCH (22:07)
[2019-02-04] MEDS: INSULIN (LEVEMIR) 100 UNITS/ML UNITS SQ SCH (23:03)
[2019-02-05] MEDS ORDERED: METHADONE HCL 5 MG TABLET (FOR DETOX USE ONLY) PO ONE (06:00)
[2019-02-05] MEDS: INSULIN SLIDING SCALE (NOVOLOG) 1 VIAL SQ SCH (06:35)
--- NOTE | 2019-02-05 09:09 | DS ---
[facility] Detox Discharge Summary Admission Date: 02/02/19 Discharge Date: 02/05/19 - History Present History: Cannabis Dependence, Opioid Dependence - Physical Exam Results Vital Signs: Vital Signs Temperature 97.3 F L 02/05/19 07:18 Pulse Rate 62 02/05/19 07:18 Respiratory Rate 16 02/05/19 07:18 Blood Pressure 134/80 02/05/19 07:18 O2 Sat by Pulse Oximetry (%) - Treatment Hospital Course: Detox Protocol Followed, Detoxed Safely, Responded well, Discharged Condition Good, Rehab Referral Accepted - Medication Discharge Medications: Ambulatory Orders Aspirin [Aspirin EC] 81 mg PO DAILY 01/25/18 Insulin (LOG) Aspart [NovoLOG -] 4 units SQ TID 01/25/18 Insulin Glargine,Hum.rec.anlog [Lantus] 25 units SQ HS 01/25/18 Quetiapine Fumarate [Seroquel -] 300 mg PO HS 11/28/18 Methocarbamol [Robaxin -] 750 mg PO Q8H 01/07/19 Albuterol Sulfate Inhaler - [Ventolin HFA Inhaler -] 1 - 2 inh PO QID PRN - Diagnosis (1) Opioid dependence with withdrawal Current Visit: Yes Status: Chronic (2) Substance-induced anxiety disorder Current Visit: Yes Status: Acute (3) Substance-induced sleep disorder Current Visit: Yes Status: Acute (4) Hypertension Current Visit: Yes Status: Chronic Qualifiers: Hypertension type: essential hypertension Qualified Code(s): I10 - Essential (primary) hypertension (5) Insulin dependent diabetes mellitus Current Visit: Yes Status: Chronic (6) Neuropathy of right lower extremity Current Visit: Yes Status: Chronic (7) Nicotine dependence Current Visit: Yes Status: Chronic Qualifiers: Nicotine product type: cigarettes Substance use status: uncomplicated Qualified Code(s): F17.210 - Nicotine dependence, cigarettes, uncomplicated (8) Cannabis dependence Current Visit: Yes Status: Chronic (9) Insomnia Current Visit: No Status: Acute (10) Substance-induced sleep disorder Current Visit: No Status: Acute (11) Asthma Current Visit: No Status: Chronic Qualifiers: Asthma severity: mild Asthma persistence: unspecified Asthma complication type: with status asthmaticus Qualified Code(s): J45.902 - Unspecified asthma with status asthmaticus (12) Back pain Current Visit: No Status: Chronic Qualifiers: Back pain location: low back pain (13) Bipolar II disorder Current Visit: No Status: Chronic (14) History of bipolar disorder Current Visit: No Status: Chronic (15) Substance induced mood disorder Current Visit: No Status: Suspected (16) History of hysterectomy Current Visit: No Status: Resolved (17) PPD positive, treated Current Visit: No Status: Resolved - AMA Did Patient Leave Against Medical Advice: No (referred to [facility] inpatient rehab)
[2019-02-05 09:35] VITALS: BP 97/55; PULSE 105; TEMP 97.8
== END 2019-02-05 08:43 | disposition home or self-care (01) | DRG 897 ==
LOC: YASAS 09:30 → Y6N 11:46
PROVIDERS: ADMIT Surgery; ATTEND Surgery
PROC: HZ2ZZZZ Detoxification Services for Substance Abuse Treatment (ICD-10-PCS; principal; 2019-02-02)
DX: F11.23 Opioid dependence with withdrawal (principal); F19.282 Other psychoactive substance dependence with psychoactive substance-induced sleep disorder; F19.280 Other psychoactive substance dependence with psychoactive substance-induced anxiety disorder; J45.902 Unspecified asthma with status asthmaticus; F31.81 Bipolar II disorder; F12.20 Cannabis dependence, uncomplicated; F17.210 Nicotine dependence, cigarettes, uncomplicated; G57.91 Unspecified mononeuropathy of right lower limb; G62.9 Polyneuropathy, unspecified; I10 Essential (primary) hypertension; E11.65 Type 2 diabetes mellitus with hyperglycemia; Z79.4 Long term (current) use of insulin; R79.89 Other specified abnormal findings of blood chemistry; R76.11 Nonspecific reaction to tuberculin skin test without active tuberculosis; Z86.73 Personal history of transient ischemic attack (TIA), and cerebral infarction without residual deficits; Z90.710 Acquired absence of both cervix and uterus
CPT/HCPCS: 36415; 71046-TC-FY; 80048; 80053; 81025; 82962; 85027; 86593

== ENCOUNTER 2019-03-19 08:39 | Inpatient (IN) | payer OTHER ==
[2019-03-19 09:20] VITALS: BMI 26.4
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
[2019-03-19] MEDS ORDERED: MENTHOL/PHENOL 1 EACH UD MM PRN (10:16)
[2019-03-19] MEDS ORDERED: MAG HYDROX/AL HYDROX/SIMETH 30 ML UNIT-DOSE CUP PO PRN (10:16)
[2019-03-19] MEDS ORDERED: MAGNESIUM CITRATE 300 ML BOTTLE PO PRN (10:16)
[2019-03-19] MEDS ORDERED: MAGNESIUM HYDROX 2400MG/30ML ORAL SUSPENSION 30 ML CUP PO PRN (10:16)
[2019-03-19] MEDS ORDERED: ACETAMINOPHEN 325 MG TABLET (FP) PO PRN ×2 (10:16)
[2019-03-19] MEDS ORDERED: BISMUTH SUBSALICYLATE 262 MG/15 ML BTL PO PRN (10:16)
[2019-03-19] MEDS ORDERED: ALBUTEROL SO4 8 GM HFA INHALER IH PRN (10:17)
[2019-03-19] MEDS ORDERED: ALBUTEROL SO4 0.083% IH SOL 2.5 MG/3 ML VIAL.NEB. NEB PRN (10:19)
[2019-03-19] MEDS ORDERED: guaiFENesin 200 MG/10 ML 10 ML UNIT-DOSE CUPS PO PRN (10:24)
[2019-03-19] MEDS ORDERED: METHADONE HCL 10 MG TABLET (FOR DETOX USE ONLY) PO ONE (12:00)
[2019-03-19] MEDS: ASPIRIN COATED 81 MG TABLET.EC PO SCH (12:03)
[2019-03-19] MEDS: diazePAM 5 MG TABLET PO PRN ×2 (12:07→17:34)
[2019-03-19] MEDS: INSULIN SLIDING SCALE (NOVOLOG) 1 VIAL SQ SCH ×3 (12:44→22:17)
[2019-03-19] MEDS: NICOTINE POLACRILEX 2 MG GUM BUC PRN (14:17)
[2019-03-19] MEDS: diazePAM 5 MG TABLET PO SCH ×2 (14:39→22:18)
[2019-03-19] MEDS: THIAMINE HCL 100 MG TABLET (FP) PO SCH (22:18)
[2019-03-19] MEDS: INSULIN (LEVEMIR) 100 UNITS/ML UNITS SQ SCH (22:22)
[2019-03-19] MEDS: MELATONIN 5 MG TABLETS PO PRN (22:23)
[2019-03-19] MEDS ORDERED: QUEtiapine FUMARATE 300 MG TABLET PO ONE (22:55)
[2019-03-20] MEDS: INSULIN SLIDING SCALE (NOVOLOG) 1 VIAL SQ SCH ×4 (06:51→22:16)
[2019-03-20] MEDS: diazePAM 5 MG TABLET PO SCH ×3 (06:51→22:19)
[2019-03-20] MEDS ORDERED: METHADONE HCL 5 MG TABLET (FOR DETOX USE ONLY) ONE (08:57)
[2019-03-20] MEDS ORDERED: METHADONE HCL 10 MG TABLET (FOR DETOX USE ONLY) ONE (08:57)
[2019-03-20 09:39] LABS: HEMATOCRIT 40.9 % (32.4-45.2); HEMOGLOBIN 13.4 GM/dL (10.7-15.3); MCHC 32.8 g/dl (32.0-36.0); MEAN CELL VOLUME 94.3 fl (80-96); MEAN PLT VOLUME 8.7 fl (7.5-11.1); PLATELET COUNT 222 K/MM3 (134-434); RBC 4.33 M/mm3 (3.60-5.2); RDW 14.8 % (11.6-15.6); WHITE BLOOD COUNT 6.5 K/mm3 (4.0-10.0)
[2019-03-20] MEDS ORDERED: METHADONE (DETOX) 20 MG, METHADONE (DETOX) 5 MG PO ONE (10:00)
[2019-03-20 10:23] LABS: ALBUMIN 3.3 g/dl (3.4-5.0); BILIRUBIN,TOTAL 0.1 mg/dL (0.2-1); BLOOD UREA NITROGEN 18.5 mg/dL (7-18); CALCIUM 9.5 mg/dL (8.5-10.1); CREATININE 0.9 mg/dL (0.55-1.3); POTASSIUM 4.6 mmol/L (3.5-5.1); TOT PROT 6.6 g/dl (6.4-8.2)
--- NOTE | 2019-03-20 10:27 | CONSULT ---
[facility] Psychiatric Consult - Data Date of interview: 03/20/19 Admission source: Self-referred Identifying data: Ms Nicholson is a 58 years old single female, mother of 4 children, unemployed on SSI, homeless seeking detox treatment for opioid Substance Abuse History: Reports history of opioid use. Refer to addiction counselor's summary for further information Medical History: Significant for bronchial asthma, hypertension, type 2 diabetes mellitus, PPD+, history of transcient ischemic attack in 2011 and surgeries(tubal ligation, hysterectomy in 2014). Smokes 5 cigarettes daily Psychiatric History: Patient is known to underwriter from a recent encounter on while in detox in this facility. Reports that her first psychiatric contact was at age 42 when she was diagnosed with Bipolar Disorder and Depression. Reports multiple psychiatric hospitalizations in facilities in [place] and [place]. Reports that her most recent admission was earlier in 2019 to [facility] in the [place]. Reports seeing a psychiatrist at a clinic located on [facility] and she is prescribed Seroquel 300 mg po HS, Celexa 10 mg po daily and Klonopin 0.5 mg po TID prn. When seen by underwriter recently, she was continued on her psychotropic medications(Seroquel 300 mg/hs and Celexa 10 mg/day). Told underwriter after after discharge from this facility on 02/05/19, she did not crab picker the 30 days supply of her medications but had them prescribed by her psychiatrist. Denies previous suicidal attempt. At present, denies psychotic, manic or depressive symptoms, S/ H ideations. However, reports feeling anxious and sleeping poorly. Physical/Sexual Abuse/Trauma History: Denies Additional Comment: Reports history of one previous felony conviction. Denies being on parole/probation Mental Status Exam - Mental Status Exam Alert and Oriented to: Time, Place, Person Cognitive Function: Fair Patient Appearance: Well Groomed Mood: Anxious, Irritable Affect: Appropriate Patient Behavior: Cooperative Speech Pattern: Clear Voice Loudness: Normal Thought Process: Intact, Goal Oriented Thought Disorder: Not Present Hallucinations: Denies Suicidal Ideation: Denies Homicidal Ideation: Denies Insight/Judgement: Poor Sleep: Poorly Appetite: Good Muscle strength/Tone: Normal Gait/Station: Normal Psychiatric Findings - Problem List ([place] 1, 2,3) (1) Bipolar II disorder Current Visit: No Status: Chronic (2) Substance-induced anxiety disorder Current Visit: No Status: Acute (3) Substance-induced sleep disorder Current Visit: No Status: Acute (4) Opioid dependence with withdrawal Current Visit: Yes Status: Acute (5) Nicotine dependence Current Visit: Yes Status: Chronic Qualifiers: Nicotine product type: cigarettes Substance use status: uncomplicated Qualified Code(s): F17.210 - Nicotine dependence, cigarettes, uncomplicated (6) Asthma Current Visit: No Status: Chronic Qualifiers: Asthma severity: mild Asthma persistence: unspecified Asthma complication type: with status asthmaticus Qualified Code(s): J45.902 - Unspecified asthma with status asthmaticus (7) Hypertension Current Visit: No Status: Chronic Qualifiers: Hypertension type: essential hypertension Qualified Code(s): I10 - Essential (primary) hypertension (8) Insulin dependent diabetes mellitus Current Visit: No Status: Chronic Comment: [id number] (9) Neuropathy of right lower extremity Current Visit: No Status: Chronic (10) History of hysterectomy Current Visit: No Status: Resolved (11) PPD positive, treated Current Visit: No Status: Resolved (12) Back pain Current Visit: No Status: Chronic Qualifiers: Back pain location: low back pain - Initial Treatment Plan Initial Treatment Plan: 1) Continue Seroquel 300 mg po HS and Celexa 10 mg po daily. 2) Continue inpatient detoxification
[2019-03-20] MEDS: PRENATAL VITAMINS W/ FOLIC ACID TABLET (FP) PO SCH (10:36)
[2019-03-20] MEDS: ASPIRIN COATED 81 MG TABLET.EC PO SCH (10:36)
--- NOTE | 2019-03-20 10:54 | PN ---
BHS COWS - Scale Resting Pulse: 0= [place] 80 or Below Sweatin=Flushed/Facial Moisture Restless Observation: 1= Difficult to Sit Still Pupil Size: 0= Normal to Room Light Bone or Joint Aches: 1= Mild Discomfort Runny Nose/ Eye Tearin= Runny Nose/Eyes GI Upset > 30mins: 0= None Tremor Observation of Outstretched Hands: 1= Tremor [place], Not Seen Yawning Observation: 2= >3x During Session Anxiety or Irritability: 1=Feels Anxious/Irritable Goose Flesh Skin: 0=Smooth Skin COWS Score: 10 BHS Progress Note (SOAP) Subjective: nasal congestions sweats mild shakes interrupted sleep Objective: 03/20/19 10:54 Vital Signs Temperature 97.2 F L 03/20/19 07:35 Pulse Rate 68 03/20/19 07:35 Respiratory Rate 18 03/20/19 07:35 Blood Pressure 108/70 03/20/19 07:35 O2 Sat by Pulse Oximetry (%) Laboratory Tests 03/19/19 03/19/19 03/19/19 11:05 12:36 16:49 WBC RBC Hgb Hct MCV MCH MCHC RDW Plt Count MPV Sodium Potassium Chloride Carbon Dioxide Anion Gap BUN Creatinine Est GFR (CKD-EPI)AfAm Est GFR (CKD-EPI)NonAf POC Glucometer 113 133 157 Random Glucose Calcium Total Bilirubin AST ALT Alkaline Phosphatase Total Protein Albumin 03/19/19 03/20/19 03/20/19 22:03 06:30 06:32 WBC RBC Hgb Hct MCV MCH MCHC RDW Plt Count MPV Sodium Potassium Chloride Carbon Dioxide Anion Gap BUN Creatinine Est GFR (CKD-EPI)AfAm Est GFR (CKD-EPI)NonAf POC Glucometer 191 50 55 Random Glucose Calcium Total Bilirubin AST ALT Alkaline Phosphatase Total Protein Albumin 03/20/19 03/20/19 07:49 07:49 WBC 6.5 RBC 4.33 Hgb 13.4 Hct 40.9 MCV 94.3 MCH 31.0 MCHC 32.8 RDW 14.8 Plt Count 222 D MPV 8.7 Sodium 141 Potassium 4.6 Chloride 108 H Carbon Dioxide 31 Anion Gap 3 L BUN 18.5 H Creatinine 0.9 Est GFR (CKD-EPI)AfAm 82.84 Est GFR (CKD-EPI)NonAf 71.48 POC Glucometer Random Glucose 121 H Calcium 9.5 Total Bilirubin 0.1 L AST 22 ALT 27 Alkaline Phosphatase 96 Total Protein 6.6 Albumin 3.3 L aaox3 ambulating no acute distress Assessment: 03/20/19 10:54 withdrawal sx Plan: continue detox increase fluids
[2019-03-20] MEDS ORDERED: PATIENT'S OWN MEDICATION (NON-FORMULARY) (Clonazepam [Klonopin] 0.5 MG) PO SCH (14:00)
[2019-03-20] MEDS: CITALOPRAM HYDROBROMIDE 10 MG TABLET (FP) PO SCH (14:33)
[2019-03-20] MEDS ORDERED: SODIUM PHOSPHATE/NA BIPHOS 133 ML ENEMA PR ONE (19:12)
[2019-03-20] MEDS ORDERED: PATIENT'S OWN MEDICATION (NON-FORMULARY) (Zolpidem Tartrate [Ambien] 10 MG) PO SCH (22:00)
[2019-03-20] MEDS: QUEtiapine FUMARATE 300 MG TABLET PO SCH (22:14)
[2019-03-20] MEDS: THIAMINE HCL 100 MG TABLET (FP) PO SCH (22:14)
[2019-03-20] MEDS: INSULIN (LEVEMIR) 100 UNITS/ML UNITS SQ SCH (22:17)
[2019-03-21] MEDS: diazePAM 5 MG TABLET PO SCH ×2 (05:51→20:52)
[2019-03-21] MEDS: INSULIN SLIDING SCALE (NOVOLOG) 1 VIAL SQ SCH ×4 (06:25→23:59)
[2019-03-21] MEDS ORDERED: METHADONE HCL 10 MG TABLET (FOR DETOX USE ONLY) PO ONE (10:00)
[2019-03-21] MEDS: CITALOPRAM HYDROBROMIDE 10 MG TABLET (FP) PO SCH (10:04)
[2019-03-21] MEDS: ASPIRIN COATED 81 MG TABLET.EC PO SCH (10:05)
[2019-03-21] MEDS: PRENATAL VITAMINS W/ FOLIC ACID TABLET (FP) PO SCH (10:05)
--- NOTE | 2019-03-21 12:28 | PN ---
S CIWA - CIWA Score Nausea/Vomitin-No Nausea/No Vomiting Muscle Tremors: 3 Anxiety: 3 Agitation: 3 Paroxysmal Sweats: 2 Orientation: 0-Oriented Tacttile Disturbances: 0-None Auditory Disturbances: 0-None Visual Disturbances: 0-None Headache: 0-None Present CIWA-Ar Total Score: 11 BHS COWS - Scale Resting Pulse: 1= [place] 81-100 Sweatin= Chills/Flushing Restless Observation: 1= Difficult to Sit Still Pupil Size: 0= Normal to Room Light Bone or Joint Aches: 2= Severe Diffuse Aches Runny Nose/ Eye Tearin= Nasal Congestion GI Upset > 30mins: 0= None Tremor Observation of Outstretched Hands: 1= Tremor [place], Not Seen Yawning Observation: 1= 1-2x During Session Anxiety or Irritability: 1=Feels Anxious/Irritable Goose Flesh Skin: 0=Smooth Skin COWS Score: 9 S Progress Note (SOAP) Subjective: sweats interrupted sleep body aches agitation Objective: 03/21/19 12:28 Vital Signs Temperature 98.2 F 03/21/19 09:46 Pulse Rate 81 03/21/19 09:46 Respiratory Rate 18 03/21/19 09:46 Blood Pressure 101/65 03/21/19 09:46 O2 Sat by Pulse Oximetry (%) Laboratory Tests 03/19/19 03/19/19 03/19/19 09:55 11:05 12:36 WBC RBC Hgb Hct MCV MCH MCHC RDW Plt Count MPV Sodium Potassium Chloride Carbon Dioxide Anion Gap BUN Creatinine Est GFR (CKD-EPI)AfAm Est GFR (CKD-EPI)NonAf POC Glucometer 113 133 Random Glucose Calcium Total Bilirubin AST ALT Alkaline Phosphatase Total Protein Albumin POC Urine HCG, Qual Negative RPR Titer 03/19/19 03/19/19 03/20/19 16:49 22:03 06:30 WBC RBC Hgb Hct MCV MCH MCHC RDW Plt Count MPV Sodium Potassium Chloride Carbon Dioxide Anion Gap BUN Creatinine Est GFR (CKD-EPI)AfAm Est GFR (CKD-EPI)NonAf POC Glucometer 157 191 50 Random Glucose Calcium Total Bilirubin AST ALT Alkaline Phosphatase Total Protein Albumin POC Urine HCG, Qual RPR Titer 03/20/19 03/20/19 03/20/19 06:32 07:49 07:49 WBC 6.5 RBC 4.33 Hgb 13.4 Hct 40.9 MCV 94.3 MCH 31.0 MCHC 32.8 RDW 14.8 Plt Count 222 D MPV 8.7 Sodium 141 Potassium 4.6 Chloride 108 H Carbon Dioxide 31 Anion Gap 3 L BUN 18.5 H Creatinine 0.9 Est GFR (CKD-EPI)AfAm 82.84 Est GFR (CKD-EPI)NonAf 71.48 POC Glucometer 55 Random Glucose 121 H Calcium 9.5 Total Bilirubin 0.1 L AST 22 ALT 27 Alkaline Phosphatase 96 Total Protein 6.6 Albumin 3.3 L POC Urine HCG, Qual RPR Titer 03/20/19 03/20/19 03/21/19 07:49 16:47 05:49 WBC RBC Hgb Hct MCV MCH MCHC RDW Plt Count MPV Sodium Potassium Chloride Carbon Dioxide Anion Gap BUN Creatinine Est GFR (CKD-EPI)AfAm Est GFR (CKD-EPI)NonAf POC Glucometer 160 99 Random Glucose Calcium Total Bilirubin AST ALT Alkaline Phosphatase Total Protein Albumin POC Urine HCG, Qual RPR Titer Nonreactive labs noted aaox3 ambulating no acute distress Assessment: 03/21/19 12:28 withdrawal sx Plan: continue detox increase fluids
[2019-03-21] MEDS: IBUPROFEN 400 MG TABLET (FP) PO PRN (20:58)
[2019-03-21] MEDS: diazePAM 5 MG TABLET PO PRN (21:00)
[2019-03-21] MEDS: INSULIN (LEVEMIR) 100 UNITS/ML UNITS SQ SCH (22:56)
[2019-03-21] MEDS: QUEtiapine FUMARATE 300 MG TABLET PO SCH (22:56)
[2019-03-21] MEDS: MELATONIN 5 MG TABLETS PO PRN (22:57)
[2019-03-21] MEDS: THIAMINE HCL 100 MG TABLET (FP) PO SCH (22:57)
[2019-03-22] MEDS ORDERED: diazePAM 5 MG TABLET PO ONE (06:00)
[2019-03-22] MEDS: INSULIN SLIDING SCALE (NOVOLOG) 1 VIAL SQ SCH ×4 (07:06→21:56)
[2019-03-22] MEDS ORDERED: METHADONE HCL 10 MG TABLET (FOR DETOX USE ONLY) ONE (09:02)
[2019-03-22] MEDS ORDERED: METHADONE HCL 5 MG TABLET (FOR DETOX USE ONLY) ONE (09:02)
[2019-03-22] MEDS ORDERED: METHADONE (DETOX) 10 MG, METHADONE (DETOX) 5 MG PO ONE (10:00)
[2019-03-22] MEDS: ASPIRIN COATED 81 MG TABLET.EC PO SCH (10:02)
[2019-03-22] MEDS: PRENATAL VITAMINS W/ FOLIC ACID TABLET (FP) PO SCH (10:02)
[2019-03-22] MEDS: diazePAM 5 MG TABLET PO PRN (10:05)
[2019-03-22] MEDS ORDERED: PREGABALIN 75 MG CAPSULE PO ONE (11:01)
--- NOTE | 2019-03-22 11:10 | PN ---
[facility] CIWA - CIWA Score Nausea/Vomitin Muscle Tremors: 1-None Visible, but [place] Anxiety: 2 Agitation: 1-Slight > Activity Paroxysmal Sweats: 3 Orientation: 0-Oriented Tacttile Disturbances: 3-Moderate Itch/Numb/Burn Auditory Disturbances: 0-None Visual Disturbances: 0-None Headache: 0-None Present CIWA-Ar Total Score: 12 BHS COWS - Scale Resting Pulse: 0= [place] 80 or Below Sweatin= Chills/Flushing Restless Observation: 1= Difficult to Sit Still Pupil Size: 1= Pupils >than Normal Bone or Joint Aches: 2= Severe Diffuse Aches Runny Nose/ Eye Tearin= None GI Upset > 30mins: 1= Stomach Cramp Tremor Observation of Outstretched Hands: 1= Tremor [place], Not Seen Yawning Observation: 0= None Anxiety or Irritability: 2=Irritable/Anxious Goose Flesh Skin: 0=Smooth Skin COWS Score: 9 [facility] Progress Note (SOAP) Subjective: interrupted sleep, sweats,shakes, elft leg pain , diarrhea Objective: 03/22/19 11:05 Vital Signs Temperature 98.1 F 03/22/19 09:20 Pulse Rate 77 03/22/19 09:20 Respiratory Rate 17 03/22/19 09:20 Blood Pressure 112/69 03/22/19 09:20 O2 Sat by Pulse Oximetry (%) Laboratory Tests 03/19/19 03/19/19 03/19/19 09:55 11:05 12:36 WBC RBC Hgb Hct MCV MCH MCHC RDW Plt Count MPV Sodium Potassium Chloride Carbon Dioxide Anion Gap BUN Creatinine Est GFR (CKD-EPI)AfAm Est GFR (CKD-EPI)NonAf POC Glucometer 113 133 Random Glucose Calcium Total Bilirubin AST ALT Alkaline Phosphatase Total Protein Albumin POC Urine HCG, Qual Negative RPR Titer 03/19/19 03/19/19 03/20/19 16:49 22:03 06:30 WBC RBC Hgb Hct MCV MCH MCHC RDW Plt Count MPV Sodium Potassium Chloride Carbon Dioxide Anion Gap BUN Creatinine Est GFR (CKD-EPI)AfAm Est GFR (CKD-EPI)NonAf POC Glucometer 157 191 50 Random Glucose Calcium Total Bilirubin AST ALT Alkaline Phosphatase Total Protein Albumin POC Urine HCG, Qual RPR Titer 03/20/19 03/20/19 03/20/19 06:32 07:49 07:49 WBC 6.5 RBC 4.33 Hgb 13.4 Hct 40.9 MCV 94.3 MCH 31.0 MCHC 32.8 RDW 14.8 Plt Count 222 D MPV 8.7 Sodium 141 Potassium 4.6 Chloride 108 H Carbon Dioxide 31 Anion Gap 3 L BUN 18.5 H Creatinine 0.9 Est GFR (CKD-EPI)AfAm 82.84 Est GFR (CKD-EPI)NonAf 71.48 POC Glucometer 55 Random Glucose 121 H Calcium 9.5 Total Bilirubin 0.1 L AST 22 ALT 27 Alkaline Phosphatase 96 Total Protein 6.6 Albumin 3.3 L POC Urine HCG, Qual RPR Titer 03/20/19 03/20/19 03/21/19 07:49 16:47 05:49 WBC RBC Hgb Hct MCV MCH MCHC RDW Plt Count MPV Sodium Potassium Chloride Carbon Dioxide Anion Gap BUN Creatinine Est GFR (CKD-EPI)AfAm Est GFR (CKD-EPI)NonAf POC Glucometer 160 99 Random Glucose Calcium Total Bilirubin AST ALT Alkaline Phosphatase Total Protein Albumin POC Urine HCG, Qual RPR Titer Nonreactive 03/21/19 03/22/19 16:44 06:28 WBC RBC Hgb Hct MCV MCH MCHC RDW Plt Count MPV Sodium Potassium Chloride Carbon Dioxide Anion Gap BUN Creatinine Est GFR (CKD-EPI)AfAm Est GFR (CKD-EPI)NonAf POC Glucometer 181 77 Random Glucose Calcium Total Bilirubin AST ALT Alkaline Phosphatase Total Protein Albumin POC Urine HCG, Qual RPR Titer pt aox3 lying in bed in nad; uses a cane for ambulation Assessment: 03/22/19 11:06 withdrawal sx's dm neuropathy Plan: cont. detox increase fluids lyrica 75mg bid.
[2019-03-22] MEDS: CITALOPRAM HYDROBROMIDE 10 MG TABLET (FP) PO SCH (12:08)
[2019-03-22] MEDS: hydrOXYzine HCL 25 MG TABLET (FP) PO PRN ×2 (12:14→20:10)
[2019-03-22] MEDS: IBUPROFEN 400 MG TABLET (FP) PO PRN (21:52)
[2019-03-22] MEDS: QUEtiapine FUMARATE 300 MG TABLET PO SCH (21:55)
[2019-03-22] MEDS: PREGABALIN 75 MG CAPSULE PO SCH (21:55)
[2019-03-22] MEDS: MELATONIN 5 MG TABLETS PO PRN (21:55)
[2019-03-22] MEDS: INSULIN (LEVEMIR) 100 UNITS/ML UNITS SQ SCH (22:00)
[2019-03-22] MEDS: THIAMINE HCL 100 MG TABLET (FP) PO SCH (22:01)
[2019-03-23] MEDS: INSULIN SLIDING SCALE (NOVOLOG) 1 VIAL SQ SCH ×4 (07:22→22:15)
[2019-03-23] MEDS: hydrOXYzine HCL 25 MG TABLET (FP) PO PRN ×2 (09:55→14:55)
[2019-03-23] MEDS: CITALOPRAM HYDROBROMIDE 10 MG TABLET (FP) PO SCH (09:55)
[2019-03-23] MEDS: ASPIRIN COATED 81 MG TABLET.EC PO SCH (09:56)
[2019-03-23] MEDS: PRENATAL VITAMINS W/ FOLIC ACID TABLET (FP) PO SCH (09:56)
[2019-03-23] MEDS: PREGABALIN 75 MG CAPSULE PO SCH ×2 (09:56→22:11)
[2019-03-23] MEDS ORDERED: METHADONE HCL 10 MG TABLET (FOR DETOX USE ONLY) PO ONE (10:00)
--- NOTE | 2019-03-23 11:46 | PN ---
BHS COWS - Scale Resting Pulse: 0= [place] 80 or Below Sweatin= Chills/Flushing Restless Observation: 1= Difficult to Sit Still Pupil Size: 0= Normal to Room Light Bone or Joint Aches: 0= None Runny Nose/ Eye Tearin= None GI Upset > 30mins: 0= None Tremor Observation of Outstretched Hands: 0= None Yawning Observation: 1= 1-2x During Session Anxiety or Irritability: 2=Irritable/Anxious Goose Flesh Skin: 0=Smooth Skin COWS Score: 5 BHS Progress Note (SOAP) Subjective: c/o sweats and anxiety. Objective: 03/23/19 11:46 Vital Signs 03/23/19 03/23/19 08:18 09:00 Temperature 96.1 F L 98.4 F Pulse Rate 57 L 78 Respiratory 18 16 Rate Blood Pressure 137/50 L 116/66 Assessment: 03/23/19 11:46 AOX3, in no acute distress. Full ROM, ambulating in the unit with a cane. withdrawal symptoms. Plan: continue detox.
[2019-03-23] MEDS: NICOTINE POLACRILEX 2 MG GUM BUC PRN ×2 (12:56→14:56)
[2019-03-23] MEDS: INSULIN (LEVEMIR) 100 UNITS/ML UNITS SQ SCH (22:12)
[2019-03-23] MEDS: QUEtiapine FUMARATE 300 MG TABLET PO SCH (22:12)
[2019-03-23] MEDS: THIAMINE HCL 100 MG TABLET (FP) PO SCH (22:12)
[2019-03-24] MEDS ORDERED: METHADONE HCL 5 MG TABLET (FOR DETOX USE ONLY) PO ONE (06:00)
[2019-03-24] MEDS: INSULIN SLIDING SCALE (NOVOLOG) 1 VIAL SQ SCH ×4 (07:26→22:29)
[2019-03-24] MEDS: PREGABALIN 75 MG CAPSULE PO SCH ×2 (10:51→22:29)
[2019-03-24] MEDS: ASPIRIN COATED 81 MG TABLET.EC PO SCH (10:51)
[2019-03-24] MEDS: CITALOPRAM HYDROBROMIDE 10 MG TABLET (FP) PO SCH (10:51)
[2019-03-24] MEDS: PRENATAL VITAMINS W/ FOLIC ACID TABLET (FP) PO SCH (10:51)
--- NOTE | 2019-03-24 13:42 | PN ---
BHS COWS - Scale Resting Pulse: 0= [place] 80 or Below Sweatin= Chills/Flushing Restless Observation: 0= Sits Still Pupil Size: 0= Normal to Room Light Bone or Joint Aches: 1= Mild Discomfort Runny Nose/ Eye Tearin= Nasal Congestion GI Upset > 30mins: 0= None Tremor Observation of Outstretched Hands: 0= None Yawning Observation: 0= None Anxiety or Irritability: 1=Feels Anxious/Irritable Goose Flesh Skin: 0=Smooth Skin COWS Score: 4 BHS Progress Note (SOAP) Subjective: Patient c/o mild anxiety, nasal congestion, tiredness and body aches. Objective: 03/24/19 13:40 Laboratory Tests 03/19/19 03/19/19 03/19/19 09:55 11:05 12:36 WBC RBC Hgb Hct MCV MCH MCHC RDW Plt Count MPV Sodium Potassium Chloride Carbon Dioxide Anion Gap BUN Creatinine Est GFR (CKD-EPI)AfAm Est GFR (CKD-EPI)NonAf POC Glucometer 113 133 Random Glucose Calcium Total Bilirubin AST ALT Alkaline Phosphatase Total Protein Albumin POC Urine HCG, Qual Negative RPR Titer 03/19/19 03/19/19 03/20/19 16:49 22:03 06:30 WBC RBC Hgb Hct MCV MCH MCHC RDW Plt Count MPV Sodium Potassium Chloride Carbon Dioxide Anion Gap BUN Creatinine Est GFR (CKD-EPI)AfAm Est GFR (CKD-EPI)NonAf POC Glucometer 157 191 50 Random Glucose Calcium Total Bilirubin AST ALT Alkaline Phosphatase Total Protein Albumin POC Urine HCG, Qual RPR Titer 03/20/19 03/20/19 03/20/19 06:32 07:49 07:49 WBC 6.5 RBC 4.33 Hgb 13.4 Hct 40.9 MCV 94.3 MCH 31.0 MCHC 32.8 RDW 14.8 Plt Count 222 D MPV 8.7 Sodium 141 Potassium 4.6 Chloride 108 H Carbon Dioxide 31 Anion Gap 3 L BUN 18.5 H Creatinine 0.9 Est GFR (CKD-EPI)AfAm 82.84 Est GFR (CKD-EPI)NonAf 71.48 POC Glucometer 55 Random Glucose 121 H Calcium 9.5 Total Bilirubin 0.1 L AST 22 ALT 27 Alkaline Phosphatase 96 Total Protein 6.6 Albumin 3.3 L POC Urine HCG, Qual RPR Titer 03/20/19 03/20/19 03/21/19 07:49 16:47 05:49 WBC RBC Hgb Hct MCV MCH MCHC RDW Plt Count MPV Sodium Potassium Chloride Carbon Dioxide Anion Gap BUN Creatinine Est GFR (CKD-EPI)AfAm Est GFR (CKD-EPI)NonAf POC Glucometer 160 99 Random Glucose Calcium Total Bilirubin AST ALT Alkaline Phosphatase Total Protein Albumin POC Urine HCG, Qual RPR Titer Nonreactive 03/21/19 03/22/19 03/23/19 16:44 06:28 16:44 WBC RBC Hgb Hct MCV MCH MCHC RDW Plt Count MPV Sodium Potassium Chloride Carbon Dioxide Anion Gap BUN Creatinine Est GFR (CKD-EPI)AfAm Est GFR (CKD-EPI)NonAf POC Glucometer 181 77 139 Random Glucose Calcium Total Bilirubin AST ALT Alkaline Phosphatase Total Protein Albumin POC Urine HCG, Qual RPR Titer 03/23/19 22:10 WBC RBC Hgb Hct MCV MCH MCHC RDW Plt Count MPV Sodium Potassium Chloride Carbon Dioxide Anion Gap BUN Creatinine Est GFR (CKD-EPI)AfAm Est GFR (CKD-EPI)NonAf POC Glucometer 190 Random Glucose Calcium Total Bilirubin AST ALT Alkaline Phosphatase Total Protein Albumin POC Urine HCG, Qual RPR Titer Vital Signs Temperature 97.8 F 03/24/19 09:39 Pulse Rate 88 03/24/19 09:39 Respiratory Rate 18 03/24/19 09:39 Blood Pressure 151/89 03/24/19 09:39 O2 Sat by Pulse Oximetry (%) PE alert and oriented x 3 skin warm and dry +nasal stuffiness ext full rom amb ad cherry Assessment: 03/24/19 13:41 withdrawal sx Plan: continue supportive care for d/c in am
[2019-03-24] MEDS: QUEtiapine FUMARATE 300 MG TABLET PO SCH (22:29)
[2019-03-24] MEDS: THIAMINE HCL 100 MG TABLET (FP) PO SCH (22:29)
[2019-03-24] MEDS: INSULIN (LEVEMIR) 100 UNITS/ML UNITS SQ SCH (22:31)
[2019-03-24] MEDS: hydrOXYzine HCL 25 MG TABLET (FP) PO PRN (22:41)
[2019-03-25] MEDS: INSULIN SLIDING SCALE (NOVOLOG) 1 VIAL SQ SCH (06:14)
[2019-03-25 06:53] VITALS: TEMP 97.7
[2019-03-25 09:33] VITALS: BP 112/81; PULSE 95
--- NOTE | 2019-03-25 10:50 | DS ---
[facility] Detox Discharge Summary Admission Date: 03/19/19 Discharge Date: 03/25/19 - History Present History: Cannabis Dependence, Opioid Dependence - Physical Exam Results Vital Signs: Vital Signs Temperature 97.7 F 03/25/19 09:32 Pulse Rate 95 H 03/25/19 09:32 Respiratory Rate 18 03/25/19 09:32 Blood Pressure 112/81 03/25/19 09:32 O2 Sat by Pulse Oximetry (%) Pertinent Admission Physical Exam Findings: pt arrived in withdrawals Laboratory Tests 03/19/19 03/19/19 03/19/19 09:55 11:05 12:36 WBC RBC Hgb Hct MCV MCH MCHC RDW Plt Count MPV Sodium Potassium Chloride Carbon Dioxide Anion Gap BUN Creatinine Est GFR (CKD-EPI)AfAm Est GFR (CKD-EPI)NonAf POC Glucometer 113 133 Random Glucose Calcium Total Bilirubin AST ALT Alkaline Phosphatase Total Protein Albumin POC Urine HCG, Qual Negative RPR Titer 03/19/19 03/19/19 03/20/19 16:49 22:03 06:30 WBC RBC Hgb Hct MCV MCH MCHC RDW Plt Count MPV Sodium Potassium Chloride Carbon Dioxide Anion Gap BUN Creatinine Est GFR (CKD-EPI)AfAm Est GFR (CKD-EPI)NonAf POC Glucometer 157 191 50 Random Glucose Calcium Total Bilirubin AST ALT Alkaline Phosphatase Total Protein Albumin POC Urine HCG, Qual RPR Titer 03/20/19 03/20/19 03/20/19 06:32 07:49 07:49 WBC 6.5 RBC 4.33 Hgb 13.4 Hct 40.9 MCV 94.3 MCH 31.0 MCHC 32.8 RDW 14.8 Plt Count 222 D MPV 8.7 Sodium 141 Potassium 4.6 Chloride 108 H Carbon Dioxide 31 Anion Gap 3 L BUN 18.5 H Creatinine 0.9 Est GFR (CKD-EPI)AfAm 82.84 Est GFR (CKD-EPI)NonAf 71.48 POC Glucometer 55 Random Glucose 121 H Calcium 9.5 Total Bilirubin 0.1 L AST 22 ALT 27 Alkaline Phosphatase 96 Total Protein 6.6 Albumin 3.3 L POC Urine HCG, Qual RPR Titer 03/20/19 03/20/19 03/21/19 07:49 16:47 05:49 WBC RBC Hgb Hct MCV MCH MCHC RDW Plt Count MPV Sodium Potassium Chloride Carbon Dioxide Anion Gap BUN Creatinine Est GFR (CKD-EPI)AfAm Est GFR (CKD-EPI)NonAf POC Glucometer 160 99 Random Glucose Calcium Total Bilirubin AST ALT Alkaline Phosphatase Total Protein Albumin POC Urine HCG, Qual RPR Titer Nonreactive 03/21/19 03/22/19 03/23/19 16:44 06:28 16:44 WBC RBC Hgb Hct MCV MCH MCHC RDW Plt Count MPV Sodium Potassium Chloride Carbon Dioxide Anion Gap BUN Creatinine Est GFR (CKD-EPI)AfAm Est GFR (CKD-EPI)NonAf POC Glucometer 181 77 139 Random Glucose Calcium Total Bilirubin AST ALT Alkaline Phosphatase Total Protein Albumin POC Urine HCG, Qual RPR Titer 03/23/19 22:10 WBC RBC Hgb Hct MCV MCH MCHC RDW Plt Count MPV Sodium Potassium Chloride Carbon Dioxide Anion Gap BUN Creatinine Est GFR (CKD-EPI)AfAm Est GFR (CKD-EPI)NonAf POC Glucometer 190 Random Glucose Calcium Total Bilirubin AST ALT Alkaline Phosphatase Total Protein Albumin POC Urine HCG, Qual RPR Titer pt is aaox3 ambulating no acute distress no s/s of withdrawal sx - Treatment Hospital Course: Detox Protocol Followed, Detoxed Safely, Responded well, Discharged Condition Good, Rehab Referral Accepted Patient has Accepted a Rehab Referral to: pt declined rehab; referral provided - Medication Discharge Medications: Ambulatory Orders Insulin (LOG) Aspart [NovoLOG -] 4 units SQ TID 01/25/18 Quetiapine Fumarate [Seroquel -] 300 mg PO HS 11/28/18 Albuterol Sulfate Inhaler - [Ventolin HFA Inhaler -] 2 inh PO QID PRN #1 inhaler 03/24/19 Aspirin [Aspirin EC] 81 mg PO DAILY #14 tablet. 03/24/19 Insulin Glargine,Hum.rec.anlog [Lantus] 25 units SQ HS #1 vial 03/24/19 - Diagnosis (1) Opioid dependence with withdrawal Current Visit: Yes Status: Chronic (2) Nicotine dependence Current Visit: Yes Status: Chronic Qualifiers: Nicotine product type: cigarettes Substance use status: uncomplicated Qualified Code(s): F17.210 - Nicotine dependence, cigarettes, uncomplicated (3) Insomnia Current Visit: No Status: Acute (4) Substance-induced anxiety disorder Current Visit: No Status: Acute (5) Substance-induced sleep disorder Current Visit: No Status: Acute (6) Substance-induced sleep disorder Current Visit: No Status: Acute (7) Asthma Current Visit: No Status: Chronic Qualifiers: Asthma severity: mild Asthma persistence: unspecified Asthma complication type: with status asthmaticus Qualified Code(s): J45.902 - Unspecified asthma with status asthmaticus (8) Back pain Current Visit: Yes Status: Chronic Qualifiers: Back pain location: low back pain Chronicity: chronic Back pain laterality: unspecified (9) Bipolar II disorder Current Visit: Yes Status: Chronic (10) Cannabis dependence Current Visit: Yes Status: Chronic (11) History of bipolar disorder Current Visit: No Status: Chronic (12) Hypertension Current Visit: Yes Status: Chronic Qualifiers: Hypertension type: essential hypertension Qualified Code(s): I10 - Essential (primary) hypertension (13) Insulin dependent diabetes mellitus Current Visit: No Status: Chronic (14) Neuropathy of right lower extremity Current Visit: No Status: Chronic (15) Substance induced mood disorder Current Visit: No Status: Suspected (16) History of hysterectomy Current Visit: No Status: Resolved (17) PPD positive, treated Current Visit: No Status: Resolved - AMA Did Patient Leave Against Medical Advice: No (pt declined rehab, referral provided)
== END 2019-03-25 09:55 | disposition home or self-care (01) | DRG 897 ==
LOC: YASAS 08:39 → Y6N 11:07
PROVIDERS: ADMIT Surgery; ATTEND Surgery
PROC: HZ2ZZZZ Detoxification Services for Substance Abuse Treatment (ICD-10-PCS; principal; 2019-03-19)
DX: F19.230 Other psychoactive substance dependence with withdrawal, uncomplicated (principal); F19.280 Other psychoactive substance dependence with psychoactive substance-induced anxiety disorder; F19.282 Other psychoactive substance dependence with psychoactive substance-induced sleep disorder; F31.81 Bipolar II disorder; F11.23 Opioid dependence with withdrawal; F12.20 Cannabis dependence, uncomplicated; F17.210 Nicotine dependence, cigarettes, uncomplicated; I10 Essential (primary) hypertension; J45.909 Unspecified asthma, uncomplicated; G47.00 Insomnia, unspecified; G62.9 Polyneuropathy, unspecified; M54.5 Low back pain; G89.29 Other chronic pain; R76.11 Nonspecific reaction to tuberculin skin test without active tuberculosis; E11.9 Type 2 diabetes mellitus without complications; Z90.710 Acquired absence of both cervix and uterus; Z86.73 Personal history of transient ischemic attack (TIA), and cerebral infarction without residual deficits; Z79.4 Long term (current) use of insulin
CPT/HCPCS: 36415; 80053; 81025; 82962; 85027; 86593

== ENCOUNTER 2019-04-04 13:49 | Inpatient (IN) | payer OTHER ==
[2019-04-04 16:39] VITALS: BMI 26.4
--- NOTE | 2019-04-04 17:55 | HP ---
CIWA Score - Admission Criteria [facility]ASAS Guidelines: Admission for Medically Managed Detox: Requires at least one of the followin. CIWA greater than 12 2. Seizures within the past 24 hours 3. Delirium tremens within the past 24 hours 4. Hallucinations within the past 24 hours 5. Acute intervention needed for co occurring medical disorder 6. Acute intervention needed for co occurring psychiatric disorder 7. Severe withdrawal that cannot be handled at a lower level of care (continued vomiting, continued diarrhea, abnormal vital signs) requiring intravenous medication and/or fluids 8. Admission ROS S - HPI Chief Complaint: heroin rehabilitation Allergies/Adverse Reactions: Allergies Allergy/AdvReac Type Severity Reaction Status Date / Time morphine Allergy Severe Hives Verified 04/04/19 16:27 strawberry Allergy Severe Hives Verified 04/04/19 16:27 History of Present Illness: Patient is a 58 yo female with hx of opioid dependence is here seeking inpatient rehabilitation after completing detox 03/19/19 -03/25/19. PMHX: Asthma, DM II, RLE neuropathy Psych: bipolar and depression Denies SI/ HI Reports hx of overdose x 1, three years ago Exam Limitations: No Limitations - Ebola screening Have you traveled outside of the country in the last 21 days: No Have you had contact with anyone from an Ebola affected area: No Do you have a fever: No - Review of Systems Constitutional: Chills, Loss of Appetite, Changes in sleep EENT: reports: No Symptoms Reported Respiratory: reports: No Symptoms reported Cardiac: reports: No Symptoms Reported GI: reports: No Symptoms Reported : reports: No Symptoms Reported Musculoskeletal: reports: Joint Pain Integumentary: reports: No Symptoms Reported Neuro: reports: No Symptoms reported Endocrine: reports: No Symptoms Reported Hematology: reports: No Symptoms Reported Psychiatric: reports: Orientated x3, Depressed Other Systems: Reviewed and Negative Patient History - Patient Medical History Hx Anemia: No Hx Asthma: Yes Hx Chronic Obstructive Pulmonary Disease (COPD): No Hx Cancer: No Hx Cardiac Disorders: No Hx Congestive Heart Failure: No Hx Hypertension: Yes Hx Hypercholesterolemia: No Hx Pacemaker: No HX Cerebrovascular Accident: Yes (Had TIA in 2011 with no residual sx) Hx Seizures: No Hx Dementia: No Hx Diabetes: Yes (iddm) Hx Gastrointestinal Disorders: No Hx Liver Disease: No Hx Genitourinary Disorders: No Hx Sexually Transmitted Disorders: No Hx Renal Disease (ESRD): No Hx Thyroid Disease: No Hx Human Immunodeficiency Virus (HIV): No (last 09/22 negative) Hx Hepatitis C: No Hx Depression: Yes Hx Suicide Attempt: No Hx Bipolar Disorder: Yes Hx Schizophrenia: No - Patient Surgical History Past Surgical History: Yes Hx Neurologic Surgery: No Hx Cataract Extraction: No Hx Cardiac Surgery: No Hx Lung Surgery: No Hx Breast Surgery: No Hx Breast Biopsy: No Hx Abdominal Surgery: Yes Hx Appendectomy: No Hx Cholecystectomy: No Hx Genitourinary Surgery: Yes (tubal ligation) Hx Section: No Hx Orthopedic Surgery: No Hx Hysterectomy: Yes (2015) Other Surgical History: HYSTERECTOMY IN 2014 Anesthesia Reaction: No - PPD History Date: 01/27/18 Results: cxr02/04/19 neg - Reproductive History Last Menstrual Period: 01/02/15 - Smoking Cessation Smoking history: Current every day smoker Have you smoked in the past 12 months: Yes Aproximately how many cigarettes per day: 5 Cigars Per Day: 0 Hx Chewing Tobacco Use: No Initiated information on smoking cessation: Yes 'Breaking Loose' booklet given: 04/04/19 - Substance & Tx. History Hx Alcohol Use: No Hx Substance Use: Yes Substance Use Type: Heroin Hx Substance Use Treatment: Yes ([facility] detox 03/19/19 -03/25/19) - Substances abused Heroin Other (specify): sniff Substance route: Inhalation Frequency: Daily Amount used: 20 bags Age of first use: 19 Date of last use: 03/19/19 Family Disease History - Family Disease History Family Disease History: Diabetes: Mother (living), Heart Disease: Mother, Other : Father (, unknown), Mother, Brother (one - no contact), Sister (seven - no contact), Son (two - healthy), Daughter (two - healthy) Admission Physical Exam S - Vital Signs Vital Signs: Vital Signs - 24 hr 04/04/19 16:31 Temperature 97.8 F Pulse Rate 62 Respiratory 18 Rate Blood Pressure 136/85 - Physical General Appearance: Yes: Disheveled, Thin, Irritable (tearful) HEENTM: Yes: Hearing grossly Normal, Normal ENT Inspection, Normocephalic, Normal Voice, ENID, Pharynx Normal, Tm's normal Respiratory: Yes: Chest Non-Tender, Lungs Clear, Normal Breath Sounds, No Respiratory Distress, No Accessory Muscle Use Neck: Yes: Within Normal Limits Breast: Yes: Breast Exam Deferred Cardiology: Yes: Regular Rhythm, Regular Rate Abdominal: Yes: Normal Bowel Sounds, Non Tender, Flat, Soft Genitourinary: Yes: Within Normal Limits Back: Yes: Normal Inspection Musculoskeletal: Yes: full range of Motion, Gait Steady, Pelvis Stable, Other ( cane for ambulation) Extremities: Yes: Normal Capillary Refill, Normal Inspection, Normal Range of Motion, Other (+varicose veins bilateral) Neurological: Yes: urban design consultant II-XII NML intact, Fully Oriented, Alert, Motor Strength 5/5, Normal Mood/Affect, Depressed Affect Integumentary: Yes: Normal Color, Dry, Warm Lymphatic: Yes: Within Normal Limits - Diagnostic (1) Uncomplicated opioid dependence Current Visit: Yes Status: Acute (2) Asthma Current Visit: No Status: Chronic Qualifiers: Asthma severity: mild Asthma persistence: unspecified Asthma complication type: with status asthmaticus Qualified Code(s): J45.902 - Unspecified asthma with status asthmaticus (3) Back pain Current Visit: Yes Status: Chronic Qualifiers: Back pain location: low back pain Chronicity: chronic Back pain laterality: unspecified (4) History of bipolar disorder Current Visit: Yes Status: Chronic Comment: Non-adherent to OPD care. (5) Insulin dependent diabetes mellitus Current Visit: Yes Status: Chronic (6) Neuropathy of right lower extremity Current Visit: Yes Status: Chronic (7) Nicotine dependence Current Visit: Yes Status: Chronic Qualifiers: Nicotine product type: cigarettes Substance use status: uncomplicated Qualified Code(s): F17.210 - Nicotine dependence, cigarettes, uncomplicated Breathalyzer - Breathalyzer Breathalyzer: 0 POC Urine test - Test device test lot number: [id number] Expiration date: 05/04/20 - Control test control: Yes Urine Drug Screen - Test Device Lot number: [id number] Expiration date: 01/01/21 - Control Is test valid?: Yes - Results Drug screen NEGATIVE: No Urine drug screen results: FEN-Fentanyl, MOP-Opiates, OXY-Oxycodone, MTD- Methadone, BZO-Benzodiazepines Inpatient Rehab Admission - Rehab Decision to Admit Inpatient rehab admission?: Yes - Initial Determination Are CD services needed?: Yes Free of communicable disease: Yes Not in need of hospitalization: Yes - Rehab Admission Criteria Previous failed treatment: Yes Poor recovery environment: Yes Comorbidities: Yes Lacks judgement: Yes Patient is meeting Inpatient Rehab admission criteria:: Yes
[2019-04-04] MEDS ORDERED: Insulin (LOG) Aspart 100 UNITS/ML VIAL SQ PRN (17:57)
[2019-04-04] MEDS ORDERED: ALBUTEROL SO4 8 GM HFA INHALER IH PRN (17:57)
[2019-04-04] MEDS ORDERED: MAGNESIUM HYDROX 2400MG/30ML ORAL SUSPENSION 30 ML CUP PO PRN (17:58)
[2019-04-04] MEDS ORDERED: NICOTINE POLACRILEX 2 MG GUM BUC PRN (17:58)
[2019-04-04] MEDS ORDERED: ACETAMINOPHEN 325 MG TABLET (FP) PO PRN (17:58)
[2019-04-04] MEDS ORDERED: MAGNESIUM CITRATE 300 ML BOTTLE PO PRN (17:58)
[2019-04-04] MEDS ORDERED: LOPERAMIDE HCL 2 MG CAPSULE PO PRN (17:58)
[2019-04-04] MEDS ORDERED: MAG HYDROX/AL HYDROX/SIMETH 30 ML UNIT-DOSE CUP PO PRN (17:58)
[2019-04-04] MEDS ORDERED: MENTHOL/PHENOL 1 EACH UD MM PRN (17:58)
[2019-04-04] MEDS ORDERED: guaiFENesin 200 MG/10 ML 10 ML UNIT-DOSE CUPS PO PRN (17:58)
[2019-04-04] MEDS ORDERED: P-EPHED 60MG/TRIPROLIDI 2.5MG TABLET PO PRN (17:58)
[2019-04-04] MEDS ORDERED: IBUPROFEN 400 MG TABLET (FP) PO PRN (17:58)
[2019-04-04] MEDS: THIAMINE HCL 100 MG TABLET (FP) PO SCH (21:55)
[2019-04-04] MEDS: INSULIN (LEVEMIR) 100 UNITS/ML UNITS SQ SCH (21:59)
[2019-04-04] MEDS ORDERED: MELATONIN 5 MG TABLETS PO PRN (22:00)
[2019-04-04] MEDS ORDERED: INSULIN (LEVEMIR) 100 UNITS/ML UNITS SQ ONE (22:15)
[2019-04-05 07:43] VITALS: PULSE 69
[2019-04-05] MEDS: PRENATAL VITAMINS W/ FOLIC ACID TABLET (FP) PO SCH (10:31)
[2019-04-05] MEDS: NICOTINE 14 MG/24 HOURS TOPICAL PATCH TD SCH (10:31)
[2019-04-05] MEDS: ASPIRIN COATED 81 MG TABLET.EC PO SCH (10:31)
[2019-04-05] MEDS ORDERED: BUPRENORPHINE/NALOXONE 2 MG/0.5 MG FILM PACKET SL ONE (15:25)
[2019-04-05] MEDS ORDERED: CYCLOBENZAPRINE HCL 10 MG TABLET (FP) PO PRN (15:25)
--- NOTE | 2019-04-05 16:04 | PN ---
[facility] Progress Note Note: Patient seen for c/o anxiety, restlessness, sweating, tearing of eyes and opiod cravings. Patient has long standing hx of heroin use and completed detox 03/19/19 -03/25/19 here at [facility]. Patient states she was treated last month with Suboxone but did not continue with treatment. Patient states suboxone did help reduce cravings. PE: alert and oriented x 3 skin + facial moisture +perrla, eoms intact, + tearing +nasal congestion ext full rom, amb ad cherry no visible tremors +anxiety/restlessness A/P: protracted withdrawal symptoms Patient referred counselor for connection to Suboxone MAT provider In meantime, will start suboxone 2mg daily for withdrawal symptoms add flexeril 10mg tid prn monitor clinically Address: [address] [place] [address] Sex: Female Rx Written Rx Dispensed Drug Quantity Days Supply Prescriber Name 03/01/2019 03/04/2019 zolpidem tartrate 10 mg tablet 30 30 Damon Rudolph 03/01/2019 03/04/2019 alprazolam 1 mg tablet 30 8 Damon Rudolph 03/01/2019 03/04/2019 buprenorphine-naloxone 8-2 mg sl film 16 16 Damon Rudolph 11/22/2018 12/06/2018 zolpidem tartrate 10 mg tablet 10 10 Cirilo Nguyen) 09/28/2018 09/28/2018 zolpidem tartrate 10 mg tablet 30 30 Cirilo Nguyen) 09/25/2018 09/26/2018 lyrica 75 mg capsule 30 30 Cirilo Nguyen)
--- NOTE | 2019-04-05 16:25 | CONSULT ---
[facility] Psychiatric Consult - Data Date of interview: 04/05/19 Admission source: [facility] Identifying data: Direct admission to [address] from [facility] for this 58 y/o female self-referred for rehabilitative care to address heroin dependence co-morbid with bipolar disorder. Patient is , a mother of four, domiciled (lives with daughter), unemployed and supported on SSI benefits. Substance Abuse History: Confirmed by patient in this interview. Details in current [facility] report as follows : Smoking history: Current every day smoker. Have you smoked in the past 12 months: Yes. Aproximately how many cigarettes per day: 5. Cigars Per Day: 0. Hx Chewing Tobacco Use: No. Initiated information on smoking cessation: Yes. 'Breaking Loose' booklet given: . - Substance & Tx. History. Hx Alcohol Use: No. Hx Substance Use: Yes. Substance Use Type: Heroin. Hx Substance Use Treatment: Yes ([facility] detox -03/25/19). - Substances abused. Heroin. Other (specify): sniff. Substance route: Inhalation. Frequency: Daily. Amount used: 20 bags. Age of first use: 19. Date of last use: 03/19/19 Medical History: Medical remains remarkable for a history of CVA (2011), hypertension, diabetes mellitus, bronchial asthma, GERD, tubal ligation, left oophorectomy + hysterectomy (2015). Psychiatric History: History of multiple psychiatric hospitalizations ( [facility] in [place]). Onset of emotional disturbances : age 42. Ms Nicholson is diagnosed with Bipolar Disorder. Managed with seroquel 300 mg po hs + celexa 10 mg/day (confirmed by refills on 03/01/19 at [facility] ( spoke to pharmacist at [phone]). Patient indicates that she sees a psychiatrist, on a monthly basis, at a clinic located on [facility] in the [place]. Has reportedly taking her medications a day prior to this [facility] visit. Patient denies history of suicide attempts. Physical/Sexual Abuse/Trauma History: Patient denies history of abuse. Additional Comment: Urine drug screen results: FEN-Fentanyl, MOP-Opiates, OXY- Oxycodone, MTD-Methadone, BZO-Benzodiazepines. Noted. Mental Status Exam - Mental Status Exam Alert and Oriented to: Time, Place, Person Cognitive Function: Good Patient Appearance: Well Groomed Mood: Nervous, Anxious Affect: Appropriate, Normal Range Patient Behavior: Appropriate, Cooperative Speech Pattern: Clear, Appropriate Voice Loudness: Normal Thought Process: Intact, Goal Oriented Thought Disorder: Not Present Hallucinations: Denies Suicidal Ideation: Denies Homicidal Ideation: Denies Insight/Judgement: Fair Sleep: Poorly, Difficulty falling asleep Appetite: Good Muscle strength/Tone: Normal Gait/Station: Normal Psychiatric Findings - Problem List ([place] 1, 2,3) (1) History of bipolar disorder Current Visit: Yes Status: Chronic Comment: Non-adherent to OPD care. (2) Uncomplicated opioid dependence Current Visit: Yes Status: Chronic (3) Nicotine dependence Current Visit: Yes Status: Chronic Qualifiers: Nicotine product type: cigarettes Substance use status: uncomplicated Qualified Code(s): F17.210 - Nicotine dependence, cigarettes, uncomplicated (4) Substance induced mood disorder Current Visit: Yes Status: Chronic (5) Insomnia Current Visit: Yes Status: Chronic - Initial Treatment Plan Initial Treatment Plan: Psychoeducation. Sleep hygiene. NA meetings. Groups. Support. Medications resumed : seroquel 300 mg po hs + celexa 10 mg po daily. Side effects/benefits of both drugs are discussed with the patient. Gave verbal consent to Observation.
[2019-04-05] MEDS: INSULIN SLIDING SCALE (NOVOLOG) 1 VIAL SQ SCH ×2 (16:40→21:51)
[2019-04-05] MEDS ORDERED: QUEtiapine FUMARATE 200 MG TABLET ONE (20:49)
[2019-04-05] MEDS ORDERED: QUEtiapine FUMARATE 100 MG TABLET (FP) ONE (20:49)
--- NOTE | 2019-04-05 21:03 | PN ---
[facility] COWS - Scale Resting Pulse: 0= NM 80 or Below Sweatin=Flushed/Facial Moisture Restless Observation: 1= Difficult to Sit Still Pupil Size: 1= Pupils >than Normal Bone or Joint Aches: 1= Mild Discomfort Runny Nose/ Eye Tearin= Runny Nose/Eyes GI Upset > 30mins: 0= None Tremor Observation of Outstretched Hands: 0= None Yawning Observation: 0= None Anxiety or Irritability: 2=Irritable/Anxious Goose Flesh Skin: 0=Smooth Skin COWS Score: 9
[2019-04-05] MEDS: INSULIN (LEVEMIR) 100 UNITS/ML UNITS SQ SCH (21:51)
[2019-04-05] MEDS: THIAMINE HCL 100 MG TABLET (FP) PO SCH (21:52)
[2019-04-05] MEDS ORDERED: QUETIAPINE FUMARATE 200 MG, QUETIAPINE FUMARATE 100 MG PO SCH (22:00)
[2019-04-05] MEDS ORDERED: QUEtiapine FUMARATE 200 MG TABLET PO SCH (22:00)
[2019-04-06] MEDS: INSULIN SLIDING SCALE (NOVOLOG) 1 VIAL SQ SCH (07:36)
[2019-04-06 09:17] VITALS: BP 133/86; TEMP 98
[2019-04-06] MEDS ORDERED: CITALOPRAM HYDROBROMIDE 10 MG TABLET (FP) PO SCH (10:00)
[2019-04-06] MEDS ORDERED: BUPRENORPHINE/NALOXONE 2 MG/0.5 MG FILM PACKET SL SCH (10:00)
[2019-04-06] MEDS: PRENATAL VITAMINS W/ FOLIC ACID TABLET (FP) PO SCH (10:37)
[2019-04-06] MEDS: ASPIRIN COATED 81 MG TABLET.EC PO SCH (10:37)
[2019-04-06] MEDS: NICOTINE 14 MG/24 HOURS TOPICAL PATCH TD SCH (10:39)
--- NOTE | 2019-04-06 11:31 | PN ---
S Progress Note Note: TC from nurse - patient wants to sign out AMA - does not want to wait to see provider - states she will contact her suboxone provider tomorrow for appointment - does not want any prescriptions, just wants to leave. Vital Signs Period Temp Pulse Resp BP Sys/Zuniga Pulse Ox Last 24 Hr 98.0 F 69 17-18 133/86
== END 2019-04-06 11:34 | disposition left against medical advice (07) | DRG 894 ==
LOC: YASAS 13:49 → Y3E 18:09
PROVIDERS: ADMIT Neuromusculoskeletal Medicine & OMM; ATTEND Neuromusculoskeletal Medicine & OMM
PROC: HZ42ZZZ Group Counseling for Substance Abuse Treatment, Cognitive-Behavioral (ICD-10-PCS; principal; 2019-04-04)
DX: F11.20 Opioid dependence, uncomplicated (principal); F17.210 Nicotine dependence, cigarettes, uncomplicated; F19.24 Other psychoactive substance dependence with psychoactive substance-induced mood disorder; I10 Essential (primary) hypertension; G47.00 Insomnia, unspecified; E11.9 Type 2 diabetes mellitus without complications; J45.909 Unspecified asthma, uncomplicated; K21.9 Gastro-esophageal reflux disease without esophagitis; G62.9 Polyneuropathy, unspecified; M54.5 Low back pain; G89.29 Other chronic pain; Z79.4 Long term (current) use of insulin; Z86.73 Personal history of transient ischemic attack (TIA), and cerebral infarction without residual deficits; Z90.710 Acquired absence of both cervix and uterus
CPT/HCPCS: 82962

== ENCOUNTER 2019-05-12 08:07 | Inpatient (IN) | payer OTHER ==
[2019-05-12 09:40] VITALS: BMI 25.4
--- NOTE | 2019-05-12 10:11 | HP ---
COWS - Scale Resting Pulse: 1= [place] 81-100 Sweatin= Chills/Flushing Restless Observation: 3= Extraneous Movement Pupil Size: 1= Pupils >than Normal Bone or Joint Aches: 1= Mild Discomfort Runny Nose/ Eye Tearin= Nasal Congestion GI Upset > 30mins: 1= Stomach Cramp Tremor Observation: 1= Tremor [place], Not Seen Yawning Observation: 0= None Anxiety or Irritability: 2=Irritable/Anxious Goose Flesh Skin: 3=Piloerection COWS Score: 15 CIWA Score - Admission Criteria OASAS Guidelines: Admission for Medically Managed Detox: Requires at least one of the followin. CIWA greater than 12 2. Seizures within the past 24 hours 3. Delirium tremens within the past 24 hours 4. Hallucinations within the past 24 hours 5. Acute intervention needed for co occurring medical disorder 6. Acute intervention needed for co occurring psychiatric disorder 7. Severe withdrawal that cannot be handled at a lower level of care (continued vomiting, continued diarrhea, abnormal vital signs) requiring intravenous medication and/or fluids 8. Admission ROS [facility] Chief Complaint: here for heroin detox Allergies/Adverse Reactions: Allergies Allergy/AdvReac Type Severity Reaction Status Date / Time morphine Allergy Severe Hives Verified 05/12/19 09:34 strawberry Allergy Severe Hives Verified 05/12/19 09:34 History of Present Illness: 58 yo with asthma, diabetes, depression, HTN, a long h/o opioid use. Was last here about a month ago- finished detox and a few days of rehab- was given Suboxone- pt states she does not like Suboxone- gives her an upset stomach. Was on methadone in the past and would not prefer to restart. d/w pt about the need for fci treatment with suboxone/methadone. PCP- Brock- Current daily use 1 bundle/day via inhalation , denies ivdu , latest use yesterday, current symptoms as above , reports illicit methadone use oxycodone - denies benzo -last prescription 03/04, xanax #30 and ambien #30 tobacco : 4 cigs/day DUR- last prescriptions on 03/04 - Ebola screening Have you traveled outside of the country in the last 21 days: No (N) Have you had contact with anyone from an Ebola affected area: No Do you have a fever: No - Review of Systems Constitutional: No Symptoms Reported EENT: reports: No Symptoms Reported Respiratory: reports: No Symptoms reported Cardiac: reports: No Symptoms Reported GI: reports: No Symptoms Reported : reports: No Symptoms Reported Musculoskeletal: reports: No Symptoms Reported Neuro: reports: Other (numbness and tingling both r foot/keg) Endocrine: reports: No Symptoms Reported Hematology: reports: No Symptoms Reported Psychiatric: reports: other Patient History - Patient Medical History Hx Anemia: No Hx Asthma: Yes Hx Chronic Obstructive Pulmonary Disease (COPD): No Hx Cancer: No Hx Cardiac Disorders: No Hx Congestive Heart Failure: No Hx Hypertension: Yes Hx Hypercholesterolemia: No Hx Pacemaker: No HX Cerebrovascular Accident: Yes (Had TIA in 2011 with no residual sx) Hx Seizures: No Hx Dementia: No Hx Diabetes: No Hx Gastrointestinal Disorders: No Hx Liver Disease: No Hx Genitourinary Disorders: No Hx Sexually Transmitted Disorders: No Hx Renal Disease (ESRD): No Hx Thyroid Disease: No Hx Human Immunodeficiency Virus (HIV): No (last 09/22 negative) Hx Hepatitis C: No Hx Depression: Yes Hx Suicide Attempt: Yes Hx Bipolar Disorder: Yes Hx Schizophrenia: No - Patient Surgical History Past Surgical History: Yes Hx Neurologic Surgery: No Hx Cataract Extraction: No Hx Cardiac Surgery: No Hx Lung Surgery: No Hx Breast Surgery: No Hx Breast Biopsy: No Hx Abdominal Surgery: Yes Hx Appendectomy: No Hx Cholecystectomy: No Hx Genitourinary Surgery: Yes (tubal ligation) Hx Section: No Hx Orthopedic Surgery: No Hx Hysterectomy: Yes (2015) Other Surgical History: HYSTERECTOMY IN 2014 Anesthesia Reaction: No - PPD History Date: 01/27/18 Results: cxr02/04/19 neg - Reproductive History Last Menstrual Period: 01/02/15 - Smoking Cessation Smoking history: Current every day smoker Have you smoked in the past 12 months: Yes Aproximately how many cigarettes per day: 4 Cigars Per Day: 0 Hx Chewing Tobacco Use: No Initiated information on smoking cessation: Yes 'Breaking Loose' booklet given: 05/12/19 - Substance & Tx. History Hx Alcohol Use: No Hx Substance Use: Yes Substance Use Type: Heroin Hx Substance Use Treatment: Yes - Substances abused Heroin Other (specify): sniff Substance route: Inhalation Frequency: Daily Amount used: 20 bags Age of first use: 19 Date of last use: 05/12/19 Family Disease History - Family Disease History Family Disease History: Diabetes: Mother (living), Heart Disease: Mother, Other : Father (, unknown), Mother, Brother (one - no contact), Sister (seven - no contact), Son (two - healthy), Daughter (two - healthy) Admission Physical Exam BHS - Vital Signs Vital Signs: Vital Signs - 24 hr 05/12/19 09:24 Temperature 97.8 F Pulse Rate 59 L Respiratory 18 Rate Blood Pressure 113/74 - Physical General Appearance: Yes: Within Normal Limits HEENTM: Yes: Within Normal Limits, Hearing grossly Normal Respiratory: Yes: Within Normal Limits, Chest Non-Tender, Lungs Clear Neck: Yes: Within Normal Limits Cardiology: Yes: Within Normal Limits Abdominal: Yes: Within Normal Limits Genitourinary: Yes: Within Normal Limits Back: Yes: Within Normal Limits Musculoskeletal: Yes: Within Normal Limits Extremities: Yes: Within Normal Limits, Non-Tender Neurological: Yes: Within Normal Limits Integumentary: Yes: Within Normal Limits Lymphatic: Yes: Within Normal Limits Breathalyzer - Breathalyzer Breathalyzer: 0 POC Urine test - Test device test lot number: [id number] Expiration date: 05/04/20 - Control test control: Yes Urine Drug Screen - Test Device Lot number: [id number] Expiration date: 02/01/21 - Control Is test valid?: Yes - Results Drug screen NEGATIVE: No Urine drug screen results: FEN-Fentanyl, MOP-Opiates, MTD-Methadone Inpatient Rehab Admission - Rehab Decision to Admit Inpatient rehab admission?: No
[2019-05-12] MEDS ORDERED: hydrOXYzine PAMOATE 25 MG CAPSULE (FP) PO PRN (10:16)
[2019-05-12] MEDS ORDERED: NICOTINE POLACRILEX 2 MG GUM BUC PRN (10:16)
[2019-05-12] MEDS ORDERED: IBUPROFEN 400 MG TABLET (FP) PO PRN (10:16)
[2019-05-12] MEDS ORDERED: MAGNESIUM CITRATE 300 ML BOTTLE PO PRN (10:16)
[2019-05-12] MEDS ORDERED: MAG HYDROX/AL HYDROX/SIMETH 30 ML UNIT-DOSE CUP PO PRN (10:16)
[2019-05-12] MEDS ORDERED: METHADONE HCL 10 MG TABLET (FOR DETOX USE ONLY) PO ONE (10:16)
[2019-05-12] MEDS ORDERED: ONDANSETRON *ODT* 4 MG TABLET SL PRN (10:16)
[2019-05-12] MEDS ORDERED: DICYCLOMINE HCL 10 MG CAPSULE PO PRN (10:16)
[2019-05-12] MEDS ORDERED: BISMUTH SUBSALICYLATE 524 MG/30 ML UD PO PRN (10:16)
[2019-05-12] MEDS ORDERED: ACETAMINOPHEN 325 MG TABLET (FP) PO PRN ×2 (10:16)
[2019-05-12] MEDS ORDERED: METHOCARBAMOL 500 MG TABLET PO PRN (10:16)
[2019-05-12] MEDS ORDERED: MENTHOL/PHENOL 1 EACH UD MM PRN (10:16)
[2019-05-12] MEDS ORDERED: NALOXONE HCL 0.4 MG/ML VIAL IM PRN (10:16)
[2019-05-12] MEDS ORDERED: MAGNESIUM HYDROX 2400MG/30ML ORAL SUSPENSION 30 ML CUP PO PRN (10:16)
[2019-05-12] MEDS ORDERED: ALBUTEROL SO4 8 GM HFA INHALER IH PRN (10:20)
[2019-05-12] MEDS ORDERED: Insulin (LOG) Aspart 100 UNITS/ML VIAL SQ PRN (10:20)
[2019-05-12] MEDS: clonazePAM 0.5 MG TABLET PO PRN ×2 (13:18→22:20)
[2019-05-12] MEDS: INSULIN SLIDING SCALE (NOVOLOG) 1 VIAL SQ SCH ×3 (13:20→23:06)
[2019-05-12] MEDS ORDERED: QUEtiapine FUMARATE 100 MG TABLET (FP) ONE (21:23)
[2019-05-12] MEDS ORDERED: QUEtiapine FUMARATE 300 MG TABLET PO SCH (22:00)
[2019-05-12] MEDS: THIAMINE HCL 100 MG TABLET (FP) PO SCH (22:20)
[2019-05-12] MEDS: INSULIN (LEVEMIR) 100 UNITS/ML UNITS SQ SCH (22:21)
[2019-05-13] MEDS: INSULIN SLIDING SCALE (NOVOLOG) 1 VIAL SQ SCH ×4 (07:06→22:47)
[2019-05-13] MEDS ORDERED: METHADONE HCL 10 MG TABLET (FOR DETOX USE ONLY) ONE (08:34)
[2019-05-13] MEDS ORDERED: METHADONE HCL 5 MG TABLET (FOR DETOX USE ONLY) ONE (08:34)
[2019-05-13] MEDS ORDERED: METHADONE (DETOX) 20 MG, METHADONE (DETOX) 5 MG PO ONE (10:00)
[2019-05-13] MEDS: ASPIRIN COATED 81 MG TABLET.EC PO SCH (10:51)
[2019-05-13] MEDS: PRENATAL VITAMINS W/ FOLIC ACID TABLET (FP) PO SCH (10:51)
[2019-05-13] MEDS: clonazePAM 0.5 MG TABLET PO PRN (10:54)
[2019-05-13 12:43] LABS: HEMATOCRIT 43.5 % (32.4-45.2); HEMOGLOBIN 14.4 GM/dL (10.7-15.3); MCH 31.5 pg (25.7-33.7); MEAN CELL VOLUME 95.3 fl (80-96); MEAN PLT VOLUME 9.2 fl (7.5-11.1); PLATELET COUNT 203 K/MM3 (134-434); RBC 4.57 M/mm3 (3.60-5.2); RDW 15.3 % (11.6-15.6); WHITE BLOOD COUNT 7.1 K/mm3 (4.0-10.0)
[2019-05-13 12:55] LABS: ALBUMIN 3.2 g/dl (3.4-5.0); BILIRUBIN,TOTAL 0.5 mg/dL (0.2-1); BLOOD UREA NITROGEN 21.5 mg/dL (7-18); CALCIUM 9.6 mg/dL (8.5-10.1); CREATININE 0.8 mg/dL (0.55-1.3); POTASSIUM 4.2 mmol/L (3.5-5.1); TOT PROT 5.9 g/dl (6.4-8.2)
--- NOTE | 2019-05-13 12:55 | PN ---
BHS COWS - Scale Resting Pulse: 0= [place] 80 or Below Sweatin= Chills/Flushing Restless Observation: 1= Difficult to Sit Still Pupil Size: 1= Pupils >than Normal Bone or Joint Aches: 1= Mild Discomfort Runny Nose/ Eye Tearin= Nasal Congestion GI Upset > 30mins: 1= Stomach Cramp Tremor Observation of Outstretched Hands: 2= Slight Tremor Visible Yawning Observation: 2= >3x During Session Anxiety or Irritability: 2=Irritable/Anxious Goose Flesh Skin: 0=Smooth Skin COWS Score: 12 S Progress Note (SOAP) Subjective: 58 years old female 9th patient [facility] admission since 2019 was admitted on 05/12/19 for opiate withdrawal sx management doing well with methadone detox regimen feeling better today reporting court date on 05/16/[address] to court for aftercare arrangement modify methadone detox regimen to meet the needs of the patient alert speech clearly oriented x 3 coherently steady gait Objective: 05/13/19 12:58 Vital Signs Temperature 97.6 F 05/13/19 09:16 Pulse Rate 63 05/13/19 09:16 Respiratory Rate 18 05/13/19 09:16 Blood Pressure 125/87 05/13/19 09:16 O2 Sat by Pulse Oximetry (%) Laboratory Last Values WBC 7.1 K/mm3 (4.0-10.0) 05/13/19 09:00 RBC 4.57 M/mm3 (3.60-5.2) 05/13/19 09:00 Hgb 14.4 GM/dL (10.7-15.3) 05/13/19 09:00 Hct 43.5 % (32.4-45.2) 05/13/19 09:00 MCV 95.3 fl (80-96) 05/13/19 09:00 MCH 31.5 pg (25.7-33.7) 05/13/19 09:00 MCHC 33.0 g/dl (32.0-36.0) 05/13/19 09:00 RDW 15.3 % (11.6-15.6) 05/13/19 09:00 Plt Count 203 K/MM3 (134-434) 05/13/19 09:00 MPV 9.2 fl (7.5-11.1) 05/13/19 09:00 Sodium 145 mmol/L (136-145) 05/13/19 09:00 Potassium 4.2 mmol/L (3.5-5.1) 05/13/19 09:00 Chloride 109 mmol/L (98-107) H 05/13/19 09:00 Carbon Dioxide 29 mmol/L (21-32) 05/13/19 09:00 Anion Gap 8 MMOL/L (8-16) 05/13/19 09:00 BUN 21.5 mg/dL (7-18) H 05/13/19 09:00 Creatinine 0.8 mg/dL (0.55-1.3) 05/13/19 09:00 Est GFR (CKD-EPI)AfAm 95.52 05/13/19 09:00 Est GFR (CKD-EPI)NonAf 82.42 05/13/19 09:00 POC Glucometer 108 UNITS (80-120) 05/13/19 10:53 Random Glucose 63 mg/dL (74-106) L 05/13/19 09:00 Calcium 9.6 mg/dL (8.5-10.1) 05/13/19 09:00 Total Bilirubin 0.5 mg/dL (0.2-1) 05/13/19 09:00 AST 16 U/L (15-37) 05/13/19 09:00 ALT 19 U/L (13-61) 05/13/19 09:00 Alkaline Phosphatase 90 U/L (45-117) 05/13/19 09:00 Total Protein 5.9 g/dl (6.4-8.2) L 05/13/19 09:00 Albumin 3.2 g/dl (3.4-5.0) L 05/13/19 09:00 lab noted Assessment: 05/13/19 12:58 opiate withdrawal sx Plan: continue methadone detox regimen
--- NOTE | 2019-05-13 15:30 | CONSULT ---
[facility] Psychiatric Consult - Data Date of interview: 05/13/19 Admission source: [facility] Identifying data: Readmission to [facility] for this 58 y/o female self- referred for detoxification (heroin, xanax). Interviewed at [address] [place] [address]. Patient is , a mother of four, homeless (self-report), unemployed and supported on SSI benefits. Substance Abuse History: Confirmed by the patient in this interview. Details in current [facility] report as follows : Smoking history: Current every day smoker. Have you smoked in the past 12 months: Yes. Aproximately how many cigarettes per day: 4. Cigars Per Day: 0. Hx Chewing Tobacco Use: No. Initiated information on smoking cessation: Yes. 'Breaking Loose' booklet given: . - Substance & Tx. History. Hx Alcohol Use: No. Hx Substance Use: Yes. Substance Use Type: Heroin. Hx Substance Use Treatment: Yes. - Substances abused. Heroin. Other (specify): sniff. Substance route: Inhalation. Frequency: Daily. Amount used: 20 bags. Age of first use: 19. Date of last use: 05/12/19 Medical History: Medical profile is remarkable for a history of CVA (2011), hypertension, diabetes mellitus, bronchial asthma, GERD, tubal ligation, left oophorectomy + hysterectomy (2016). Psychiatric History: Patient presents with a history of multiple psychiatric hospitalizations ([facility] in [place]). Onset of emotional disturbances : age 42. Ms Nicholson is diagnosed with Bipolar Disorder. She is managed with seroquel + celexa + klonopin (doses not recalled). Patient sees a psychiatrist, on a monthly basis, at a clinic located on [facility] in the [place]. Admits to chronic non-adherence to medications. Patient denies history of suicide attempts. Physical/Sexual Abuse/Trauma History: Declines to revisit this domain. Additional Comment: Urine drug screen results: FEN-Fentanyl, MOP-Opiates, MTD- Methadone. Noted. Mental Status Exam - Mental Status Exam Alert and Oriented to: Time, Place, Person Cognitive Function: Grossly Intact Patient Appearance: Unkempt, Disheveled Mood: Nervous, Withdrawn Affect: Mood Congruent, Constricted Patient Behavior: Sedated, Fatigued Speech Pattern: Delayed, Slurred Voice Loudness: Moderately Soft/Quiet Thought Process: Goal Oriented Thought Disorder: Not Present Hallucinations: Denies Suicidal Ideation: Denies Homicidal Ideation: Denies Insight/Judgement: Poor Sleep: Well Appetite: Good Gait/Station: Other (not observed; in bed for duration of interview) Psychiatric Findings - Problem List ([place] 1, 2,3) (1) Opioid dependence with withdrawal Current Visit: Yes Status: Acute (2) Nicotine dependence Current Visit: Yes Status: Chronic Qualifiers: Nicotine product type: cigarettes Substance use status: uncomplicated Qualified Code(s): F17.210 - Nicotine dependence, cigarettes, uncomplicated (3) Substance induced mood disorder Current Visit: Yes Status: Chronic (4) History of bipolar disorder Current Visit: Yes Status: Chronic Comment: Non-adherent to OPD care. (5) Non-compliance Current Visit: Yes Status: Chronic - Initial Treatment Plan Initial Treatment Plan: Psychoeducation. Sleep hygiene. Support. NA meetings. Resumed : seroquel 300 mg po hs. Side effects/benefits discussed with the patient. She states that she is in agreement with this plan of care. Gave verbal cosent to . Observation.
[2019-05-13] MEDS: cloNIDine HCL 0.1 MG TABLET PO PRN (17:32)
[2019-05-13] MEDS: THIAMINE HCL 100 MG TABLET (FP) PO SCH (22:27)
[2019-05-13] MEDS: MELATONIN 5 MG TABLETS PO PRN (22:27)
[2019-05-13] MEDS: INSULIN (LEVEMIR) 100 UNITS/ML UNITS SQ SCH (22:31)
[2019-05-14] MEDS: INSULIN SLIDING SCALE (NOVOLOG) 1 VIAL SQ SCH ×4 (06:50→22:11)
[2019-05-14] MEDS ORDERED: METHADONE HCL 10 MG TABLET (FOR DETOX USE ONLY) PO ONE ×2 (10:00)
[2019-05-14] MEDS: PRENATAL VITAMINS W/ FOLIC ACID TABLET (FP) PO SCH (10:37)
[2019-05-14] MEDS: ASPIRIN COATED 81 MG TABLET.EC PO SCH (10:37)
[2019-05-14] MEDS: cloNIDine HCL 0.1 MG TABLET PO PRN (10:38)
[2019-05-14] MEDS: clonazePAM 0.5 MG TABLET PO PRN ×2 (10:40→16:40)
--- NOTE | 2019-05-14 12:31 | PN ---
[facility]HS COWS - Scale Resting Pulse: 0= [place] 80 or Below Sweatin= Chills/Flushing Restless Observation: 0= Sits Still Pupil Size: 0= Normal to Room Light Bone or Joint Aches: 1= Mild Discomfort Runny Nose/ Eye Tearin= Nasal Congestion GI Upset > 30mins: 1= Stomach Cramp Tremor Observation of Outstretched Hands: 2= Slight Tremor Visible Yawning Observation: 1= 1-2x During Session Anxiety or Irritability: 1=Feels Anxious/Irritable Goose Flesh Skin: 0=Smooth Skin COWS Score: 8 BHS Progress Note (SOAP) Subjective: doing well with methadone detox regimen mild body aches less tremor mild anxious about court date tomorrow Objective: 05/14/19 12:32 Vital Signs Temperature 97.9 F 05/14/19 09:50 Pulse Rate 71 05/14/19 09:50 Respiratory Rate 05/14/19 09:50 Blood Pressure 155/89 05/14/19 09:50 O2 Sat by Pulse Oximetry (%) Laboratory Last Values WBC 7.1 K/mm3 (4.0-10.0) 05/13/19 09:00 RBC 4.57 M/mm3 (3.60-5.2) 05/13/19 09:00 Hgb 14.4 GM/dL (10.7-15.3) 05/13/19 09:00 Hct 43.5 % (32.4-45.2) 05/13/19 09:00 MCV 95.3 fl (80-96) 05/13/19 09:00 MCH 31.5 pg (25.7-33.7) 05/13/19 09:00 MCHC 33.0 g/dl (32.0-36.0) 05/13/19 09:00 RDW 15.3 % (11.6-15.6) 05/13/19 09:00 Plt Count 203 K/MM3 (134-434) 05/13/19 09:00 MPV 9.2 fl (7.5-11.1) 05/13/19 09:00 Sodium 145 mmol/L (136-145) 05/13/19 09:00 Potassium 4.2 mmol/L (3.5-5.1) 05/13/19 09:00 Chloride 109 mmol/L (98-107) H 05/13/19 09:00 Carbon Dioxide 29 mmol/L (21-32) 05/13/19 09:00 Anion Gap 8 MMOL/L (8-16) 05/13/19 09:00 BUN 21.5 mg/dL (7-18) H 05/13/19 09:00 Creatinine 0.8 mg/dL (0.55-1.3) 05/13/19 09:00 Est GFR (CKD-EPI)AfAm 95.52 05/13/19 09:00 Est GFR (CKD-EPI)NonAf 82.42 05/13/19 09:00 POC Glucometer 98 UNITS (80-120) 05/14/19 11:08 Random Glucose 63 mg/dL (74-106) L 05/13/19 09:00 Calcium 9.6 mg/dL (8.5-10.1) 05/13/19 09:00 Total Bilirubin 0.5 mg/dL (0.2-1) 05/13/19 09:00 AST 16 U/L (15-37) 05/13/19 09:00 ALT 19 U/L (13-61) 05/13/19 09:00 Alkaline Phosphatase 90 U/L (45-117) 05/13/19 09:00 Total Protein 5.9 g/dl (6.4-8.2) L 05/13/19 09:00 Albumin 3.2 g/dl (3.4-5.0) L 05/13/19 09:00 HIV 1&2 Ag/Ab, 4th Gen Non-reactive 05/13/19 10:00 HIV 1&2 Antibody Screen Cancelled 05/13/19 09:00 HIV P24 Antigen Cancelled 05/13/19 09:00 lab noted 05/14/19 12:33 denies history of hypertension however bp elevation with diabetes 05/14/19 12:35begin lisinopril 05/14/19 12:36 Assessment: 05/14/19 12:36 opiate withdrawal sx Plan: continue methadone detox regimen
[2019-05-14] MEDS ORDERED: LISINOPRIL 5 MG TABLET (FP) PO SCH (12:45)
[2019-05-14] MEDS: THIAMINE HCL 100 MG TABLET (FP) PO SCH (22:11)
[2019-05-14] MEDS: MELATONIN 5 MG TABLETS PO PRN (22:13)
[2019-05-14] MEDS: INSULIN (LEVEMIR) 100 UNITS/ML UNITS SQ SCH (22:14)
[2019-05-15] MEDS ORDERED: METHADONE HCL 5 MG TABLET (FOR DETOX USE ONLY) PO ONE (06:00)
[2019-05-15 06:45] VITALS: BP 141/101; PULSE 72; TEMP 97.8
[2019-05-15] MEDS: INSULIN SLIDING SCALE (NOVOLOG) 1 VIAL SQ SCH (07:35)
[2019-05-15] MEDS: clonazePAM 0.5 MG TABLET PO PRN (07:37)
[2019-05-15] MEDS ORDERED: METHADONE (DETOX) 10 MG, METHADONE (DETOX) 5 MG PO ONE (10:00)
--- NOTE | 2019-05-15 12:41 | DS ---
[facility] Detox Discharge Summary Admission Date: 05/12/19 Discharge Date: 05/15/19 - History Present History: Opioid Dependence Additional Comments: 58 years old female admitted on 05/12/19 for opiate withdrawal sx management did well with methadone detox regimen no complication through out the detox regimen seen by psychiatrist treated with virgilio yangelor tolerate well patient is alert oriented x 3 clear lung sound bilaterally on auscultation extremities full range of motion abdomen soft no rebound tenderness - Physical Exam Results Vital Signs: Vital Signs Temperature 97.8 F 05/15/19 06:44 Pulse Rate 72 05/15/19 06:44 Respiratory Rate 16 05/15/19 06:44 Blood Pressure 141/101 H 05/15/19 06:44 O2 Sat by Pulse Oximetry (%) Pertinent Admission Physical Exam Findings: opiate withdrawal sx Laboratory Last Values WBC 7.1 K/mm3 (4.0-10.0) 05/13/19 09:00 RBC 4.57 M/mm3 (3.60-5.2) 05/13/19 09:00 Hgb 14.4 GM/dL (10.7-15.3) 05/13/19 09:00 Hct 43.5 % (32.4-45.2) 05/13/19 09:00 MCV 95.3 fl (80-96) 05/13/19 09:00 MCH 31.5 pg (25.7-33.7) 05/13/19 09:00 MCHC 33.0 g/dl (32.0-36.0) 05/13/19 09:00 RDW 15.3 % (11.6-15.6) 05/13/19 09:00 Plt Count 203 K/MM3 (134-434) 05/13/19 09:00 MPV 9.2 fl (7.5-11.1) 05/13/19 09:00 Sodium 145 mmol/L (136-145) 05/13/19 09:00 Potassium 4.2 mmol/L (3.5-5.1) 05/13/19 09:00 Chloride 109 mmol/L (98-107) H 05/13/19 09:00 Carbon Dioxide 29 mmol/L (21-32) 05/13/19 09:00 Anion Gap 8 MMOL/L (8-16) 05/13/19 09:00 BUN 21.5 mg/dL (7-18) H 05/13/19 09:00 Creatinine 0.8 mg/dL (0.55-1.3) 05/13/19 09:00 Est GFR (CKD-EPI)AfAm 95.52 05/13/19 09:00 Est GFR (CKD-EPI)NonAf 82.42 05/13/19 09:00 POC Glucometer 162 UNITS (80-120) 05/14/19 21:44 Random Glucose 63 mg/dL (74-106) L 05/13/19 09:00 Calcium 9.6 mg/dL (8.5-10.1) 05/13/19 09:00 Total Bilirubin 0.5 mg/dL (0.2-1) 05/13/19 09:00 AST 16 U/L (15-37) 05/13/19 09:00 ALT 19 U/L (13-61) 05/13/19 09:00 Alkaline Phosphatase 90 U/L (45-117) 05/13/19 09:00 Total Protein 5.9 g/dl (6.4-8.2) L 05/13/19 09:00 Albumin 3.2 g/dl (3.4-5.0) L 05/13/19 09:00 HIV 1&2 Ag/Ab, 4th Gen Non-reactive 05/13/19 10:00 HIV 1&2 Antibody Screen Cancelled 05/13/19 09:00 HIV P24 Antigen Cancelled 05/13/19 09:00 lab noted - Treatment Hospital Course: Detox Protocol Followed, Detoxed Safely, Responded well, Discharged Condition Good, Rehab Referral Accepted Patient has Accepted a Rehab Referral to: community support approach - Medication Discharge Medications: Ambulatory Orders Insulin (LOG) Aspart [NovoLOG -] 4 units SQ TID PRN 01/25/18 Quetiapine Fumarate [Seroquel -] 300 mg PO HS 11/28/18 Aspirin [Aspirin EC] 81 mg PO DAILY #14 tablet. 03/24/19 Insulin Glargine,Hum.rec.anlog [Lantus] 25 units SQ HS #1 vial 03/24/19 Albuterol Sulfate Inhaler - [Ventolin HFA Inhaler -] 2 inh PO QID PRN #1 inhaler 05/14/19 Naloxone HCl [Narcan -] 0.4 mg IM PRN PRN #1 vial 05/14/19 - Diagnosis (1) Opioid dependence with withdrawal Status: Acute (2) Asthma Status: Chronic Qualifiers: Asthma severity: mild Asthma persistence: intermittent Asthma complication type: with status asthmaticus Qualified Code(s): J45.22 - Mild intermittent asthma with status asthmaticus (3) Hypertension Status: Chronic Qualifiers: Hypertension type: essential hypertension Qualified Code(s): I10 - Essential (primary) hypertension (4) Nicotine dependence Status: Acute Qualifiers: Nicotine product type: cigarettes Substance use status: in withdrawal Qualified Code(s): F17.213 - Nicotine dependence, cigarettes, with withdrawal (5) Substance induced mood disorder Status: Suspected (6) PPD positive, treated Status: Resolved - AMA Did Patient Leave Against Medical Advice: No CIWA Score - CIWA Score Nausea/Vomitin-No Nausea/No Vomiting COWS (PN) - Opiate Withdrawal Resting Pulse: 0= [place] 80 or Below Sweatin= No chills or Flushing Restless Observation: 0= Sits Still Pupil Size: 0= Normal to Room Light Bone or Joint Aches: 1= Mild Discomfort Runny Nose/ Eye Tearin= None GI Upset > 30mins: 0= None Tremor Observation of Outstretched Hands: 1= Tremor [place], Not Seen Yawning Observation: 0= None Anxiety or Irritability: 1=Feels Anxious/Irritable Goose Flesh Skin: 0=Smooth Skin COWS Score: 3
[2019-05-16] MEDS ORDERED: METHADONE HCL 10 MG TABLET (FOR DETOX USE ONLY) PO ONE (10:00)
[2019-05-17] MEDS ORDERED: METHADONE HCL 5 MG TABLET (FOR DETOX USE ONLY) PO ONE (06:00)
== END 2019-05-15 08:32 | disposition home or self-care (01) | DRG 897 ==
LOC: YASAS 08:07 → Y3N 11:31
PROVIDERS: ADMIT Surgery; ATTEND Surgery
PROC: HZ2ZZZZ Detoxification Services for Substance Abuse Treatment (ICD-10-PCS; principal; 2019-05-12)
DX: F11.23 Opioid dependence with withdrawal (principal); J45.22 Mild intermittent asthma with status asthmaticus; F17.213 Nicotine dependence, cigarettes, with withdrawal; I10 Essential (primary) hypertension; E11.9 Type 2 diabetes mellitus without complications; K21.9 Gastro-esophageal reflux disease without esophagitis; R76.11 Nonspecific reaction to tuberculin skin test without active tuberculosis; Z90.710 Acquired absence of both cervix and uterus; Z86.73 Personal history of transient ischemic attack (TIA), and cerebral infarction without residual deficits; Z91.14 Patient's other noncompliance with medication regimen
CPT/HCPCS: 36415; 80053; 82962; 85027; 87389; J0735

== ENCOUNTER 2019-06-05 10:18 | Inpatient (IN) | payer OTHER ==
[2019-06-05 12:00] VITALS: BMI 24.5
--- NOTE | 2019-06-05 13:02 | HP ---
COWS - Scale Resting Pulse: 0= [place] 80 or Below Sweatin= No chills or Flushing Restless Observation: 1= Difficult to Sit Still Pupil Size: 0= Normal to Room Light Bone or Joint Aches: 0= None Runny Nose/ Eye Tearin= None GI Upset > 30mins: 2= Nausea/Diarrhea Tremor Observation: 1= Tremor [place], Not Seen Yawning Observation: 0= None Anxiety or Irritability: 1=Feels Anxious/Irritable Goose Flesh Skin: 0=Smooth Skin COWS Score: 5 CIWA Score - Admission Criteria OASAS Guidelines: Admission for Medically Managed Detox: Requires at least one of the followin. CIWA greater than 12 2. Seizures within the past 24 hours 3. Delirium tremens within the past 24 hours 4. Hallucinations within the past 24 hours 5. Acute intervention needed for co occurring medical disorder 6. Acute intervention needed for co occurring psychiatric disorder 7. Severe withdrawal that cannot be handled at a lower level of care (continued vomiting, continued diarrhea, abnormal vital signs) requiring intravenous medication and/or fluids 8. Admitting History and Physical - Past Medical History ...LMP: 01/02/15 - Smoking History Smoking history: Current every day smoker Have you smoked in the past 12 months: Yes Aproximately how many cigarettes per day: 4 - Alcohol/Substance Use Hx Alcohol Use: No Admission [facility] Chief Complaint: Sarah Nicholson is a 58 year old female presenting for heroin detox. Allergies/Adverse Reactions: Allergies Allergy/AdvReac Type Severity Reaction Status Date / Time morphine Allergy Severe Hives Verified 06/05/19 11:54 strawberry Allergy Severe Hives Verified 06/05/19 11:54 History of Present Illness: Sarah Nicholson is a 58 year old female presenting for heroin detox. Heroin: 1 bundle per day. Last use was 3 hours prior to presentation. Uses daily. Has been using for 10-12 years. Denies IVDU. Denies overdose. Has Narcan kit at home. States gets heroin from one dealer, unsure of what is in her heroin. Has been on a methadone program in the past. Went to rehab to get off methadone and then started using heroin again. Has been on suboxone in the past and states she did not like the program. States will occasionally uses methadone if she cannot get heroin. Has been to detox and rehab in the past. Has been to this detox facility one month prior. Plans after detox: rehab and possibly rejoining a methadone maintenance program. Medical History: DM (on insulin), HTN, asthma, TIA, diabetic neuropathy, PPD positive (does not remember most recent x-ray) Psychiatric History: bipolar, depression Surgical History: hysterectomy, tubal ligation Smokin cigarettes a day Social: lives at her own house. lives alone. Unemployed. [place] heroin to pay for her habit. Not in contact with family. Has recent use of heroin and not enough time since most recent use for patient to be in active withdrawal. Admitted for expected severe withdrawal symptoms. Exam Limitations: Intoxication - Ebola screening Have you traveled outside of the country in the last 21 days: No (N) Have you had contact with anyone from an Ebola affected area: No Do you have a fever: No - Review of Systems Constitutional: Chills, Loss of Appetite, Night Sweats EENT: reports: Nose Congestion Respiratory: reports: Cough Cardiac: reports: No Symptoms Reported GI: reports: Diarrhea : reports: No Symptoms Reported Musculoskeletal: reports: No Symptoms Reported Integumentary: reports: No Symptoms Reported Neuro: reports: Numbness (numbness in the legs) Endocrine: reports: Unexplained Weight Loss (lost 15lbs over 4 months, unintentional) Psychiatric: reports: Disorientated, other (intoxicated, falling asleep during interview) Patient History - Patient Medical History Hx Anemia: No Hx Asthma: No Hx Chronic Obstructive Pulmonary Disease (COPD): No Hx Cancer: No Hx Cardiac Disorders: No Hx Congestive Heart Failure: No Hx Hypertension: No Hx Hypercholesterolemia: No Hx Pacemaker: No HX Cerebrovascular Accident: Yes (Had TIA in 2011 with no residual sx) Hx Seizures: No Hx Dementia: No Hx Diabetes: Yes Hx Gastrointestinal Disorders: No Hx Liver Disease: No Hx Genitourinary Disorders: No Hx Sexually Transmitted Disorders: No Hx Renal Disease (ESRD): No Hx Thyroid Disease: No Hx Human Immunodeficiency Virus (HIV): No (last 09/22 negative) Hx Hepatitis C: No Hx Depression: Yes Hx Suicide Attempt: No Hx Bipolar Disorder: Yes Hx Schizophrenia: No - Patient Surgical History Past Surgical History: Yes Hx Neurologic Surgery: No Hx Cataract Extraction: No Hx Cardiac Surgery: No Hx Lung Surgery: No Hx Breast Surgery: No Hx Breast Biopsy: No Hx Abdominal Surgery: Yes Hx Appendectomy: No Hx Cholecystectomy: No Hx Genitourinary Surgery: Yes (tubal ligation) Hx Section: No Hx Orthopedic Surgery: No Hx Hysterectomy: Yes (2016) Other Surgical History: HYSTERECTOMY IN 2015 Anesthesia Reaction: No - PPD History Previous Implant?: Yes Documented Results: Negative w/o proof Date: 01/27/18 Results: cxr02/04/19 neg PPD to be Administered?: Yes - Reproductive History Last Menstrual Period: 01/02/15 - Smoking Cessation Smoking history: Current every day smoker Have you smoked in the past 12 months: Yes Aproximately how many cigarettes per day: 4 Cigars Per Day: 0 Hx Chewing Tobacco Use: No Initiated information on smoking cessation: Yes 'Breaking Loose' booklet given: 06/05/19 - Substance & Tx. History Hx Alcohol Use: No Hx Substance Use: Yes Substance Use Type: Heroin - Substances abused Heroin Other (specify): sniff Substance route: Inhalation Frequency: Daily Amount used: 1-2 bundles Age of first use: 19 Date of last use: 06/05/19 Admission Physical Exam [facility] - Vital Signs Vital Signs: Vital Signs - 24 hr 06/05/19 11:57 Temperature 97.3 F L Pulse Rate 66 Respiratory 16 Rate Blood Pressure 117/73 - Physical General Appearance: Yes: Disheveled HEENTM: Yes: EOMI, Normocephalic, Normal Voice, Pharynx Normal Respiratory: Yes: Chest Non-Tender, Lungs Clear, Normal Breath Sounds, No Respiratory Distress, No Accessory Muscle Use Neck: Yes: No masses,lesions,Nodules, Trachea in good position Breast: Yes: Breast Exam Deferred Cardiology: Yes: Regular Rhythm, S1, S2, Bradycardia Abdominal: Yes: Normal Bowel Sounds, Non Tender, Flat, Soft Genitourinary: Yes: Within Normal Limits Back: Yes: Normal Inspection Musculoskeletal: Yes: full range of Motion Extremities: Yes: Normal Range of Motion, Non-Tender, Other (varicose veins noted on bilateral lower extremities) 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 intact, Alert, Motor Strength 5/5, Normal Response Integumentary: Yes: Normal Color, Dry, Warm - Diagnostic (1) Nicotine dependence Current Visit: No Status: Acute Qualifiers: Nicotine product type: cigarettes Substance use status: in withdrawal Qualified Code(s): F17.213 - Nicotine dependence, cigarettes, with withdrawal (2) Opioid dependence with withdrawal Current Visit: No Status: Acute (3) Substance-induced anxiety disorder Current Visit: No Status: Acute (4) Substance-induced sleep disorder Current Visit: No Status: Acute (5) Asthma Current Visit: No Status: Chronic Qualifiers: Asthma severity: mild Asthma persistence: intermittent Asthma complication type: with status asthmaticus Qualified Code(s): J45.22 - Mild intermittent asthma with status asthmaticus (6) Bipolar II disorder Current Visit: No Status: Chronic (7) History of bipolar disorder Current Visit: No Status: Chronic Comment: Non-adherent to OPD care. (8) Hypertension Current Visit: No Status: Chronic Qualifiers: Hypertension type: essential hypertension Qualified Code(s): I10 - Essential (primary) hypertension (9) Insulin dependent diabetes mellitus Current Visit: No Status: Chronic (10) Neuropathy of right lower extremity Current Visit: No Status: Chronic (11) History of hysterectomy Current Visit: No Status: Resolved (12) PPD positive, treated Current Visit: No Status: Resolved Cleared for Admission S - Detox or Rehab S Level of Care: Medically Managed Detox Regimen/Protocol: Methadone Breathalyzer - Breathalyzer Breathalyzer: 0 POC Urine test - Test device test lot number: [id number] Expiration date: 05/04/20 - Control test control: Yes Urine Drug Screen - Test Device Lot number: [id number] Expiration date: 02/01/21 - Control Is test valid?: Yes - Results Drug screen NEGATIVE: No Urine drug screen results: FEN-Fentanyl, MOP-Opiates Inpatient Rehab Admission - Rehab Decision to Admit Inpatient rehab admission?: No
[2019-06-05] MEDS ORDERED: METHOCARBAMOL 500 MG TABLET PO PRN (13:43)
[2019-06-05] MEDS ORDERED: hydrOXYzine PAMOATE 25 MG CAPSULE (FP) PO PRN (13:43)
[2019-06-05] MEDS ORDERED: IBUPROFEN 400 MG TABLET (FP) PO PRN (13:43)
[2019-06-05] MEDS ORDERED: MENTHOL/PHENOL 1 EACH UD MM PRN (13:43)
[2019-06-05] MEDS ORDERED: MAGNESIUM HYDROX 2400MG/30ML ORAL SUSPENSION 30 ML CUP PO PRN (13:43)
[2019-06-05] MEDS ORDERED: BISMUTH SUBSALICYLATE 262 MG/15 ML BTL PO PRN (13:43)
[2019-06-05] MEDS ORDERED: MAG HYDROX/AL HYDROX/SIMETH 30 ML UNIT-DOSE CUP PO PRN (13:43)
[2019-06-05] MEDS ORDERED: ACETAMINOPHEN 325 MG TABLET (FP) PO PRN ×2 (13:43)
[2019-06-05] MEDS ORDERED: MELATONIN 5 MG TABLETS PO PRN (13:43)
[2019-06-05] MEDS ORDERED: MAGNESIUM CITRATE 300 ML BOTTLE PO PRN (13:43)
[2019-06-05] MEDS ORDERED: ALBUTEROL SO4 8 GM HFA INHALER IH PRN (13:48)
[2019-06-05] MEDS ORDERED: Insulin (LOG) Aspart 100 UNITS/ML VIAL SQ PRN (13:48)
[2019-06-05] MEDS ORDERED: METHADONE HCL 10 MG TABLET (FOR DETOX USE ONLY) PO ONE (15:15)
[2019-06-05 16:49] LABS: HEMATOCRIT 43.4 % (32.4-45.2); HEMOGLOBIN 14.2 GM/dL (10.7-15.3); MCH 31.4 pg (25.7-33.7); MCHC 32.7 g/dl (32.0-36.0); MEAN PLT VOLUME 9.2 fl (7.5-11.1); PLATELET COUNT 222 K/MM3 (134-434); RBC 4.51 M/mm3 (3.60-5.2); RDW 14.4 % (11.6-15.6); WHITE BLOOD COUNT 9.5 K/mm3 (4.0-10.0)
[2019-06-05 17:08] LABS: ALBUMIN 3.8 g/dl (3.4-5.0); BILIRUBIN,TOTAL 1.2 mg/dL (0.2-1); CALCIUM 9.4 mg/dL (8.5-10.1); CREATININE 1.1 mg/dL (0.55-1.3); POTASSIUM 4.5 mmol/L (3.5-5.1); TOT PROT 6.7 g/dl (6.4-8.2)
[2019-06-05] MEDS: THIAMINE HCL 100 MG TABLET (FP) PO SCH (22:00)
[2019-06-05] MEDS: cloNIDine HCL 0.1 MG TABLET PO PRN (22:01)
[2019-06-05] MEDS: INSULIN (LEVEMIR) 100 UNITS/ML UNITS SQ SCH (23:09)
[2019-06-06 03:45] LABS: RPR NONREACTIVE (NONREACTIVE)
[2019-06-06] MEDS: INSULIN SLIDING SCALE (NOVOLOG) 1 VIAL SQ SCH ×3 (08:10→18:49)
--- NOTE | 2019-06-06 08:12 | PN ---
Teaching Attending Note Name of Resident: Shashi Valerio ATTENDING PHYSICIAN STATEMENT I saw and evaluated the patient. I reviewed the resident's note and discussed the case with the resident. I agree with the resident's findings and plan as documented. SUBJECTIVE: I agree with resident's subjective findings OBJECTIVE: I agree with resident's objective findings. ASSESSMENT AND PLAN: Patient meets criteria for admission to detox.
[2019-06-06] MEDS ORDERED: METHADONE HCL 10 MG TABLET (FOR DETOX USE ONLY) ONE (09:56)
[2019-06-06] MEDS ORDERED: METHADONE HCL 5 MG TABLET (FOR DETOX USE ONLY) ONE (09:57)
[2019-06-06] MEDS ORDERED: METHADONE (DETOX) 20 MG, METHADONE (DETOX) 5 MG PO ONE (10:00)
--- NOTE | 2019-06-06 10:52 | CONSULT ---
[facility] Psychiatric Consult - Data Date of interview: 06/06/19 (Self-referred) Admission source: Self-referred Identifying data: Ms Nicholson is a 58 years old single female, mother of 4 children, unemployed on SSI, homeless seeking detox treatment for opioid Substance Abuse History: Reports history of opioid use. Refer to addiction counselor's summary for further information Medical History: Significant for bronchial asthma, hypertension, type 2 diabetes mellitus, PPD+, history of transcient ischemic attack in 2011 and surgeries(tubal ligation, hysterectomy in 2014). Smokes 5 cigarettes daily Psychiatric History: Patient is known well known to this facility from previous admissions. Historical narrative remains consistent. She reports that her first psychiatric contact was at age 42 when she was diagnosed with Bipolar Disorder and Depression. Reports multiple psychiatric hospitalizations in facilities in [place] and [place]. Reports that her most recent admission was earlier in 2018 to [facility] in the [place]. Reports that she was seeing a psychiatrist at a clinic located on [facility] and she was prescribed Seroquel 300 mg po HS, Celexa 10 mg po daily and Klonopin 0.5 mg po TID prn. Told automobile and property underwriter that she has not seen that psychiatrist for a few months. During her most recent admission to this facility in May , she saw Dr Terry and she was prescribed Seroquel 300 mg po HS. Reports after discharge on 05/15/19, she picked her her 30 days supply of medication and has been taking it. Denies previous suicidal attempt. At present, denies psychotic , manic or depressive symptoms, S/H ideations. However, reports feeling anxious and sleeping poorly. Physical/Sexual Abuse/Trauma History: Denies Additional Comment: Reports history of one previous felony conviction. Denies being on parole/probation Mental Status Exam - Mental Status Exam Alert and Oriented to: Time, Place, Person Cognitive Function: Fair Patient Appearance: Well Groomed Mood: Depressed, Anxious, Irritable (midly) Patient Behavior: Cooperative Speech Pattern: Clear Voice Loudness: Normal Thought Process: Intact, Goal Oriented Thought Disorder: Not Present Hallucinations: Denies Suicidal Ideation: Denies Homicidal Ideation: Denies Insight/Judgement: Poor Sleep: Poorly Appetite: Good Muscle strength/Tone: Normal Gait/Station: Normal Psychiatric Findings - Problem List ([place] 1, 2,3) (1) Bipolar II disorder Current Visit: No Status: Chronic (2) Substance-induced anxiety disorder Current Visit: No Status: Acute (3) Substance-induced sleep disorder Current Visit: No Status: Acute (4) Opioid dependence with withdrawal Current Visit: No Status: Acute (5) Nicotine dependence Current Visit: No Status: Chronic Qualifiers: Nicotine product type: cigarettes Substance use status: in withdrawal Qualified Code(s): F17.213 - Nicotine dependence, cigarettes, with withdrawal (6) Asthma Current Visit: No Status: Chronic Qualifiers: Asthma severity: mild Asthma persistence: intermittent Asthma complication type: with status asthmaticus Qualified Code(s): J45.22 - Mild intermittent asthma with status asthmaticus (7) Back pain Current Visit: No Status: Chronic Qualifiers: Back pain location: low back pain Chronicity: chronic Back pain laterality: unspecified (8) Hypertension Current Visit: No Status: Chronic Qualifiers: Hypertension type: essential hypertension Qualified Code(s): I10 - Essential (primary) hypertension (9) Insulin dependent diabetes mellitus Current Visit: No Status: Chronic (10) Neuropathy of right lower extremity Current Visit: No Status: Chronic - Initial Treatment Plan Initial Treatment Plan: 1) Continue Seroquel 300 mg po HS. 2) Continue inpatient detoxification
[2019-06-06] MEDS: ASPIRIN COATED 81 MG TABLET.EC PO SCH (11:10)
[2019-06-06] MEDS: BACITRACIN 15 GM TUBE TOPICAL OINTMENT TP SCH (11:10)
[2019-06-06] MEDS: PRENATAL VITAMINS W/ FOLIC ACID TABLET (FP) PO SCH (11:10)
[2019-06-06] MEDS: NICOTINE 14 MG/24 HOURS TOPICAL PATCH TD SCH (11:11)
--- NOTE | 2019-06-06 12:48 | PN ---
BHS COWS - Scale Resting Pulse: 0= [place] 80 or Below Sweatin= Chills/Flushing Restless Observation: 1= Difficult to Sit Still Pupil Size: 0= Normal to Room Light Bone or Joint Aches: 2= Severe Diffuse Aches Runny Nose/ Eye Tearin= Nasal Congestion GI Upset > 30mins: 1= Stomach Cramp Tremor Observation of Outstretched Hands: 1= Tremor [place], Not Seen Yawning Observation: 1= 1-2x During Session Anxiety or Irritability: 1=Feels Anxious/Irritable Goose Flesh Skin: 0=Smooth Skin COWS Score: 9 BHS Progress Note (SOAP) Subjective: interrupted sleep body aches sweats shakes tired Objective: 06/06/19 12:47 Vital Signs Temperature 98.4 F 06/06/19 09:49 Pulse Rate 50 L 06/06/19 09:49 Respiratory Rate 16 06/06/19 09:49 Blood Pressure 109/63 06/06/19 09:49 O2 Sat by Pulse Oximetry (%) Laboratory Tests 06/05/19 06/05/19 06/05/19 14:00 14:00 14:00 WBC 9.5 RBC 4.51 Hgb 14.2 Hct 43.4 MCV 96.0 MCH 31.4 MCHC 32.7 RDW 14.4 Plt Count 222 MPV 9.2 Sodium 140 Potassium 4.5 Chloride 106 Carbon Dioxide 30 Anion Gap 4 L BUN 17.0 Creatinine 1.1 Est GFR (CKD-EPI)AfAm 65.00 Est GFR (CKD-EPI)NonAf 56.08 POC Glucometer Random Glucose 105 Calcium 9.4 Total Bilirubin 1.2 H AST 18 ALT 20 Alkaline Phosphatase 106 Total Protein 6.7 Albumin 3.8 RPR Titer Nonreactive HIV 1&2 Antibody Screen Negative HIV P24 Antigen Negative 06/05/19 06/05/19 06/05/19 14:56 16:37 21:57 WBC RBC Hgb Hct MCV MCH MCHC RDW Plt Count MPV Sodium Potassium Chloride Carbon Dioxide Anion Gap BUN Creatinine Est GFR (CKD-EPI)AfAm Est GFR (CKD-EPI)NonAf POC Glucometer 124 119 111 Random Glucose Calcium Total Bilirubin AST ALT Alkaline Phosphatase Total Protein Albumin RPR Titer HIV 1&2 Antibody Screen HIV P24 Antigen 06/06/19 11:13 WBC RBC Hgb Hct MCV MCH MCHC RDW Plt Count MPV Sodium Potassium Chloride Carbon Dioxide Anion Gap BUN Creatinine Est GFR (CKD-EPI)AfAm Est GFR (CKD-EPI)NonAf POC Glucometer 104 Random Glucose Calcium Total Bilirubin AST ALT Alkaline Phosphatase Total Protein Albumin RPR Titer HIV 1&2 Antibody Screen HIV P24 Antigen labs noted aaox3 ambulating no acute distress Assessment: 06/06/19 12:47 withdrawals Plan: continue detox increase fluids glucerna with meals valium 10mg prn q4hr x 3 days
[2019-06-06] MEDS ORDERED: QUEtiapine FUMARATE 300 MG TABLET PO SCH (22:00)
[2019-06-06] MEDS: diazePAM 5 MG TABLET PO PRN (22:04)
[2019-06-06] MEDS: THIAMINE HCL 100 MG TABLET (FP) PO SCH (22:04)
[2019-06-06] MEDS: cloNIDine HCL 0.1 MG TABLET PO PRN (22:06)
[2019-06-06] MEDS: INSULIN (LEVEMIR) 100 UNITS/ML UNITS SQ SCH (22:07)
[2019-06-07] MEDS: INSULIN SLIDING SCALE (NOVOLOG) 1 VIAL SQ SCH ×3 (08:37→17:13)
[2019-06-07] MEDS ORDERED: METHADONE HCL 10 MG TABLET (FOR DETOX USE ONLY) PO ONE (10:00)
[2019-06-07] MEDS: ASPIRIN COATED 81 MG TABLET.EC PO SCH (10:08)
[2019-06-07] MEDS: PRENATAL VITAMINS W/ FOLIC ACID TABLET (FP) PO SCH (10:08)
[2019-06-07] MEDS: BACITRACIN 15 GM TUBE TOPICAL OINTMENT TP SCH (10:09)
[2019-06-07] MEDS: NICOTINE 14 MG/24 HOURS TOPICAL PATCH TD SCH (10:10)
[2019-06-07] MEDS: diazePAM 5 MG TABLET PO PRN (10:10)
--- NOTE | 2019-06-07 10:33 | PN ---
BHS COWS - Scale Resting Pulse: 0= [place] 80 or Below Sweatin= Chills/Flushing Restless Observation: 1= Difficult to Sit Still Pupil Size: 0= Normal to Room Light Bone or Joint Aches: 1= Mild Discomfort Runny Nose/ Eye Tearin= Runny Nose/Eyes GI Upset > 30mins: 0= None Tremor Observation of Outstretched Hands: 1= Tremor [place], Not Seen Yawning Observation: 1= 1-2x During Session Anxiety or Irritability: 1=Feels Anxious/Irritable Goose Flesh Skin: 0=Smooth Skin COWS Score: 8 BHS Progress Note (SOAP) Subjective: tired sweats shakes interrupted sleep body aches Objective: 06/07/19 10:32 Vital Signs Temperature 96.8 F L 06/07/19 10:20 Pulse Rate 61 06/07/19 10:20 Respiratory Rate 16 06/07/19 10:20 Blood Pressure 135/63 06/07/19 10:20 O2 Sat by Pulse Oximetry (%) Laboratory Tests 06/05/19 06/05/19 06/05/19 14:00 14:00 14:00 WBC 9.5 RBC 4.51 Hgb 14.2 Hct 43.4 MCV 96.0 MCH 31.4 MCHC 32.7 RDW 14.4 Plt Count 222 MPV 9.2 Sodium 140 Potassium 4.5 Chloride 106 Carbon Dioxide 30 Anion Gap 4 L BUN 17.0 Creatinine 1.1 Est GFR (CKD-EPI)AfAm 65.00 Est GFR (CKD-EPI)NonAf 56.08 POC Glucometer Random Glucose 105 Calcium 9.4 Total Bilirubin 1.2 H AST 18 ALT 20 Alkaline Phosphatase 106 Total Protein 6.7 Albumin 3.8 RPR Titer Nonreactive HIV 1&2 Antibody Screen Negative HIV P24 Antigen Negative 06/05/19 06/05/19 06/05/19 14:56 16:37 21:57 WBC RBC Hgb Hct MCV MCH MCHC RDW Plt Count MPV Sodium Potassium Chloride Carbon Dioxide Anion Gap BUN Creatinine Est GFR (CKD-EPI)AfAm Est GFR (CKD-EPI)NonAf POC Glucometer 124 119 111 Random Glucose Calcium Total Bilirubin AST ALT Alkaline Phosphatase Total Protein Albumin RPR Titer HIV 1&2 Antibody Screen HIV P24 Antigen 10/03/19 10/03/19 10/03/19 11:13 16:40 21:59 WBC RBC Hgb Hct MCV MCH MCHC RDW Plt Count MPV Sodium Potassium Chloride Carbon Dioxide Anion Gap BUN Creatinine Est GFR (CKD-EPI)AfAm Est GFR (CKD-EPI)NonAf POC Glucometer 104 148 168 Random Glucose Calcium Total Bilirubin AST ALT Alkaline Phosphatase Total Protein Albumin RPR Titer HIV 1&2 Antibody Screen HIV P24 Antigen labs noted aaox3 ambulating no acute distress Assessment: 06/07/19 10:33 withdrawal sx Plan: continue detox increase fluids
[2019-06-07 17:27] VITALS: BP 127/60; PULSE 70; TEMP 98.2
--- NOTE | 2019-06-07 17:58 | PN ---
[facility] Progress Note Note: PATIENT STATES LEAVING TO GO HOME TO [place]. STATES FEELING BETTER. DISCUSSED THAT WITHDRAWAL SYMPTOMS WERE BEING CONTROLLED BY CURRENT MEDICATION REGIMEN. OVERDOSE RISKS AND PREVENTION DISCUSSED. ENCOURAGED TO CONSIDER MAT. PATIENT DECLINED NICOTINE PATCH/GUM. PATIENT STATES HAS IM AND IN [place]ARCAN AT HOME. PATIENT STATED NO HOME PRESCRIPTIONS NEEDED. PATIENT LEFT ALERT, ORIENTED, STEADY GAIT AMA.
--- NOTE | 2019-06-07 17:58 | DS ---
[facility] Detox Discharge Summary Admission Date: 06/05/19 Discharge Date: 06/07/19 - History Present History: Opioid Dependence Additional Comments: ADMITTED W/ C/O HEROIN WITHDRAWAL. Pertinent Past History: PMHx: IDDM, HTN, Asthma, TIA, Diabetic Neuropathy, PPD positive MHHx: Bipolar, Depression Nicotine: 4 cigarettes a day - Physical Exam Results Vital Signs: Vital Signs Temperature 98.2 F 06/07/19 17:27 Pulse Rate 70 06/07/19 17:27 Respiratory Rate 16 06/07/19 17:27 Blood Pressure 127/60 06/07/19 17:27 O2 Sat by Pulse Oximetry (%) Pertinent Admission Physical Exam Findings: ADMITTED W/ OPIOID WITHDRAWAL SYMPTOMS. WITHDRAWAL SYMPTOMS STABILIZED. Laboratory Last Values WBC 9.5 K/mm3 (4.0-10.0) 06/05/19 14:00 RBC 4.51 M/mm3 (3.60-5.2) 06/05/19 14:00 Hgb 14.2 GM/dL (10.7-15.3) 06/05/19 14:00 Hct 43.4 % (32.4-45.2) 06/05/19 14:00 MCV 96.0 fl (80-96) 06/05/19 14:00 MCH 31.4 pg (25.7-33.7) 06/05/19 14:00 MCHC 32.7 g/dl (32.0-36.0) 06/05/19 14:00 RDW 14.4 % (11.6-15.6) 06/05/19 14:00 Plt Count 222 K/MM3 (134-434) 06/05/19 14:00 MPV 9.2 fl (7.5-11.1) 06/05/19 14:00 Sodium 140 mmol/L (136-145) 06/05/19 14:00 Potassium 4.5 mmol/L (3.5-5.1) 06/05/19 14:00 Chloride 106 mmol/L (98-107) 06/05/19 14:00 Carbon Dioxide 30 mmol/L (21-32) 06/05/19 14:00 Anion Gap 4 MMOL/L (8-16) L 06/05/19 14:00 BUN 17.0 mg/dL (7-18) 06/05/19 14:00 Creatinine 1.1 mg/dL (0.55-1.3) 06/05/19 14:00 Est GFR (CKD-EPI)AfAm 65.00 06/05/19 14:00 Est GFR (CKD-EPI)NonAf 56.08 06/05/19 14:00 POC Glucometer 168 UNITS (80-120) 06/06/19 21:59 Random Glucose 105 mg/dL (74-106) 06/05/19 14:00 Calcium 9.4 mg/dL (8.5-10.1) 06/05/19 14:00 Total Bilirubin 1.2 mg/dL (0.2-1) H 06/05/19 14:00 AST 18 U/L (15-37) 06/05/19 14:00 ALT 20 U/L (13-61) 06/05/19 14:00 Alkaline Phosphatase 106 U/L (45-117) 06/05/19 14:00 Total Protein 6.7 g/dl (6.4-8.2) 06/05/19 14:00 Albumin 3.8 g/dl (3.4-5.0) 06/05/19 14:00 RPR Titer Nonreactive (NONREACTIVE) 06/05/19 14:00 HIV 1&2 Antibody Screen Negative 06/05/19 14:00 HIV P24 Antigen Negative 06/05/19 14:00 LABS REVIEWED. PATIENT DECLINED NICOTINE PATCH/GUM. PATIENT STATES HAS IM AND IN NARCAN AT HOME. PATIENT STATED NO HOME PRESCRIPTIONS NEEDED. ENCOURAGED TO CONSIDER MAT. - Treatment Hospital Course: Detox Protocol Followed (PATIENT DID NOT COMPLETE DETOX), Discharged Condition Good (PATIENT ALERT AND ORIENTED. STATES "FEELS FINE") - Medication Discharge Medications: Ambulatory Orders Insulin (LOG) Aspart [NovoLOG -] 4 units SQ TID PRN 01/25/18 Quetiapine Fumarate [Seroquel -] 300 mg PO HS 11/28/18 Aspirin [Aspirin EC] 81 mg PO DAILY #14 tablet. 03/24/19 Insulin Glargine,Hum.rec.anlog [Lantus] 25 units SQ HS #1 vial 03/24/19 Albuterol Sulfate Inhaler - [Ventolin HFA Inhaler -] 2 inh PO QID PRN #1 inhaler 05/14/19 clonazePAM [Klonopin -] 0.5 mg PO PRN 06/05/19 - Diagnosis (1) History of positive PPD Current Visit: No Status: Acute (2) Opioid dependence with withdrawal Current Visit: Yes Status: Acute (3) Asthma Current Visit: No Status: Chronic Qualifiers: Asthma severity: mild Asthma persistence: unspecified Asthma complication type: unspecified Qualified Code(s): J45.909 - Unspecified asthma , uncomplicated (4) History of bipolar disorder Current Visit: No Status: Chronic (5) Hypertension Current Visit: Yes Status: Chronic Qualifiers: Hypertension type: essential hypertension Qualified Code(s): I10 - Essential (primary) hypertension (6) Insomnia Current Visit: No Status: Chronic Qualifiers: Insomnia type: unspecified Qualified Code(s): G47.00 - Insomnia, unspecified (7) Insulin dependent diabetes mellitus Current Visit: Yes Status: Chronic (8) Nicotine dependence Current Visit: Yes Status: Chronic Qualifiers: Nicotine product type: cigarettes Substance use status: in withdrawal Qualified Code(s): F17.213 - Nicotine dependence, cigarettes, with withdrawal - AMA Did Patient Leave Against Medical Advice: Yes (OVERDOSE RISKS AND PREVENTION DISCUSSED)
[2019-06-08] MEDS ORDERED: METHADONE (DETOX) 10 MG, METHADONE (DETOX) 5 MG PO ONE (10:00)
[2019-06-09] MEDS ORDERED: METHADONE HCL 10 MG TABLET (FOR DETOX USE ONLY) PO ONE (10:00)
[2019-06-10] MEDS ORDERED: METHADONE HCL 5 MG TABLET (FOR DETOX USE ONLY) PO ONE (06:00)
== END 2019-06-07 17:40 | disposition home or self-care (01) | DRG 897 ==
LOC: YASAS 10:18 → Y6N 14:58
PROVIDERS: ADMIT Surgery; ATTEND Surgery
PROC: HZ2ZZZZ Detoxification Services for Substance Abuse Treatment (ICD-10-PCS; principal; 2019-06-05)
DX: F11.23 Opioid dependence with withdrawal (principal); F19.280 Other psychoactive substance dependence with psychoactive substance-induced anxiety disorder; F19.282 Other psychoactive substance dependence with psychoactive substance-induced sleep disorder; F31.81 Bipolar II disorder; F17.213 Nicotine dependence, cigarettes, with withdrawal; I10 Essential (primary) hypertension; E11.40 Type 2 diabetes mellitus with diabetic neuropathy, unspecified; Z79.4 Long term (current) use of insulin; J45.909 Unspecified asthma, uncomplicated; G47.00 Insomnia, unspecified; R76.11 Nonspecific reaction to tuberculin skin test without active tuberculosis; M54.5 Low back pain; Z86.73 Personal history of transient ischemic attack (TIA), and cerebral infarction without residual deficits; Z90.710 Acquired absence of both cervix and uterus; Z88.6 Allergy status to analgesic agent; Z91.018 Allergy to other foods
CPT/HCPCS: 36415; 80053; 82962; 85027; 86593; 87389; J0735

== ENCOUNTER 2019-06-25 09:46 | Inpatient (IN) | payer OTHER ==
[2019-06-25 10:08] VITALS: BMI 30.9
--- NOTE | 2019-06-25 10:45 | HP ---
COWS - Scale Resting Pulse: 0= NM 80 or Below Sweatin= Chills/Flushing Restless Observation: 0= Sits Still Pupil Size: 0= Normal to Room Light Bone or Joint Aches: 4=Acute Joint/Muscle Pain Runny Nose/ Eye Tearin= Constantly Teary/Runny GI Upset > 30mins: 1= Stomach Cramp Tremor Observation: 0= None Yawning Observation: 0= None Anxiety or Irritability: 2=Irritable/Anxious Goose Flesh Skin: 0=Smooth Skin COWS Score: 12 CIWA Score - Admission Criteria OASAS Guidelines: Admission for Medically Managed Detox: Requires at least one of the followin. CIWA greater than 12 2. Seizures within the past 24 hours 3. Delirium tremens within the past 24 hours 4. Hallucinations within the past 24 hours 5. Acute intervention needed for co occurring medical disorder 6. Acute intervention needed for co occurring psychiatric disorder 7. Severe withdrawal that cannot be handled at a lower level of care (continued vomiting, continued diarrhea, abnormal vital signs) requiring intravenous medication and/or fluids 8. Admitting History and Physical - Past Medical History ...LMP: 01/02/15 - Smoking History Smoking history: Current every day smoker Have you smoked in the past 12 months: Yes Aproximately how many cigarettes per day: 4 - Alcohol/Substance Use Hx Alcohol Use: No Admission ROS [facility] Allergies/Adverse Reactions: Allergies Allergy/AdvReac Type Severity Reaction Status Date / Time morphine Allergy Severe Hives Verified 06/25/19 09:59 strawberry Allergy Severe Hives Verified 06/25/19 09:59 History of Present Illness: pt here requesting detox from opiate use , reports past use MMTP 140 mg 10 years ago , current daily use > 1 bundle/day via inhalation , denies ivdu , latest use yesterday morning , current symptoms as above oxycodone - denies benzo - rx as above denies other illicits pmhx : dm 1 , asthma , bipolar d/o ,r le weakness / neuropathy ? pshx ;meenu 2015 , btl , ovarian cyst tobacco : 09/07 ppd Exam Limitations: Clinical Condition - Ebola screening Have you traveled outside of the country in the last 21 days: No Have you had contact with anyone from an Ebola affected area: No Do you have a fever: No - Review of Systems Constitutional: Loss of Appetite EENT: reports: See HPI Respiratory: reports: No Symptoms reported Cardiac: reports: No Symptoms Reported GI: reports: See HPI : reports: No Symptoms Reported Musculoskeletal: reports: See HPI Integumentary: reports: Other (left side of back of head) Neuro: reports: No Symptoms reported Endocrine: reports: See HPI Psychiatric: reports: Orientated x3 Patient History - Patient Medical History Hx Anemia: No Hx Asthma: Yes Hx Chronic Obstructive Pulmonary Disease (COPD): No Hx Cancer: No Hx Cardiac Disorders: No Hx Congestive Heart Failure: No Hx Hypertension: Yes Hx Hypercholesterolemia: No Hx Pacemaker: No HX Cerebrovascular Accident: Yes (Had TIA in 2011 with no residual sx) Hx Seizures: No Hx Dementia: No Hx Diabetes: Yes (Type II BGM 124mg/dl) Hx Gastrointestinal Disorders: No Hx Liver Disease: No Hx Genitourinary Disorders: No Hx Sexually Transmitted Disorders: No Hx Renal Disease (ESRD): No Hx Thyroid Disease: No Hx Human Immunodeficiency Virus (HIV): No (last 09/22 negative) Hx Hepatitis C: No Hx Depression: Yes Hx Suicide Attempt: No Hx Bipolar Disorder: Yes Hx Schizophrenia: No - Patient Surgical History Past Surgical History: Yes Hx Neurologic Surgery: No Hx Cataract Extraction: No Hx Cardiac Surgery: No Hx Lung Surgery: No Hx Breast Surgery: No Hx Breast Biopsy: No Hx Abdominal Surgery: Yes Hx Appendectomy: No Hx Cholecystectomy: No Hx Genitourinary Surgery: Yes (tubal ligation) Hx Section: No Hx Orthopedic Surgery: No Hx Hysterectomy: Yes (2015) Other Surgical History: HYSTERECTOMY IN 2014 Anesthesia Reaction: No - PPD History Date: 01/27/18 Results: cxr02/04/19 neg - Reproductive History Last Menstrual Period: 01/02/15 - Smoking Cessation Smoking history: Current every day smoker Have you smoked in the past 12 months: Yes Aproximately how many cigarettes per day: 4 Cigars Per Day: 0 Hx Chewing Tobacco Use: No Initiated information on smoking cessation: Yes 'Breaking Loose' booklet given: 06/25/19 - Substances abused Heroin Other (specify): sniff Substance route: Inhalation Frequency: Daily Amount used: 10 bundles Age of first use: 19 Date of last use: 06/24/19 Admission Physical Exam BHS - Vital Signs Vital Signs: Vital Signs - 24 hr 10/22/19 10:04 Temperature 97.0 F L Pulse Rate 69 Respiratory 18 Rate Blood Pressure 148/90 - Physical General Appearance: Yes: No Apparent Distress HEENTM: Yes: EOMI, Hearing grossly Normal, Normocephalic, Normal Voice Respiratory: Yes: Chest Non-Tender, Lungs Clear, Normal Breath Sounds, No Respiratory Distress, No Accessory Muscle Use Neck: Yes: No masses,lesions,Nodules, Trachea in good position Cardiology: Yes: Regular Rhythm, Regular Rate, S1, S2 Abdominal: Yes: Non Tender, Soft Musculoskeletal: Yes: Other (ambulating w/ cane) Extremities: Yes: Non-Tender Neurological: Yes: Fully Oriented, Alert, Motor Strength 5/5, Normal Mood/Affect Integumentary: Yes: Warm, Other (left posterior cervico-occipital junction area of erythema and purulent d/c , pt reprots she went to [facility] and was rx abx , did not take .) - Diagnostic (1) Opioid dependence with withdrawal Current Visit: Yes Status: Acute (2) Nicotine dependence Current Visit: Yes Status: Chronic Qualifiers: Nicotine product type: cigarettes Breathalyzer - Breathalyzer Breathalyzer: 0 POC Urine test - Test device test lot number: [id number] Expiration date: 05/04/20 - Control test control: Yes Urine Drug Screen - Test Device Lot number: [id number] Expiration date: 02/01/21 - Control Is test valid?: Yes - Results Drug screen NEGATIVE: No Urine drug screen results: FEN-Fentanyl, MOP-Opiates, OXY-Oxycodone, BZO- Benzodiazepines Inpatient Rehab Admission - Rehab Decision to Admit Inpatient rehab admission?: No
[2019-06-25] MEDS ORDERED: ALBUTEROL SO4 8 GM HFA INHALER IH PRN (10:56)
[2019-06-25] MEDS ORDERED: BISMUTH SUBSALICYLATE 262 MG/15 ML BTL PO PRN (11:02)
[2019-06-25] MEDS ORDERED: NICOTINE POLACRILEX 2 MG GUM BUC PRN (11:02)
[2019-06-25] MEDS ORDERED: METHOCARBAMOL 500 MG TABLET PO PRN (11:02)
[2019-06-25] MEDS ORDERED: MAGNESIUM CITRATE 300 ML BOTTLE PO PRN (11:02)
[2019-06-25] MEDS ORDERED: MAGNESIUM HYDROX 2400MG/30ML ORAL SUSPENSION 30 ML CUP PO PRN (11:02)
[2019-06-25] MEDS ORDERED: MAG HYDROX/AL HYDROX/SIMETH 30 ML UNIT-DOSE CUP PO PRN (11:02)
[2019-06-25] MEDS ORDERED: MENTHOL/PHENOL 1 EACH UD MM PRN (11:02)
[2019-06-25] MEDS ORDERED: ACETAMINOPHEN 325 MG TABLET (FP) PO PRN ×2 (11:02)
[2019-06-25] MEDS ORDERED: METHADONE HCL 10 MG TABLET (FOR DETOX USE ONLY) PO ONE (11:25)
[2019-06-25] MEDS: ASPIRIN COATED 81 MG TABLET.EC PO SCH (11:58)
[2019-06-25] MEDS: cloNIDine HCL 0.1 MG TABLET PO PRN (11:58)
[2019-06-25] MEDS: INSULIN SLIDING SCALE (NOVOLOG) 1 VIAL SQ SCH ×3 (12:05→23:06)
[2019-06-25] MEDS: CEPHALEXIN MONOHYDRATE 500 MG CAPSULE (UD) PO SCH ×2 (13:05→23:02)
[2019-06-25] MEDS: MUPIROCIN CA 2% TOPICAL CREAM 15 GM TUBE TP SCH ×2 (15:34→23:02)
[2019-06-25] MEDS: MELATONIN 5 MG TABLETS PO PRN (23:00)
[2019-06-25] MEDS: THIAMINE HCL 100 MG TABLET (FP) PO SCH (23:02)
[2019-06-25] MEDS: INSULIN (LEVEMIR) 100 UNITS/ML UNITS SQ SCH (23:02)
[2019-06-25] MEDS: hydrOXYzine PAMOATE 25 MG CAPSULE (FP) PO PRN (23:03)
[2019-06-26] MEDS: CEPHALEXIN MONOHYDRATE 500 MG CAPSULE (UD) PO SCH ×3 (07:01→21:17)
[2019-06-26] MEDS: MUPIROCIN CA 2% TOPICAL CREAM 15 GM TUBE TP SCH ×3 (07:01→22:43)
[2019-06-26] MEDS: INSULIN SLIDING SCALE (NOVOLOG) 1 VIAL SQ SCH ×4 (07:30→21:19)
--- NOTE | 2019-06-26 09:06 | CONSULT ---
[facility] Psychiatric Consult - Data Date of interview: 06/26/19 Admission source: Self-referred Identifying data: Ms Nicholson is a 58 years old single female, mother of 4 children, unemployed on SSI, homeless seeking detox treatment for opioid Substance Abuse History: Reports history of opioid use. Refer to addiction counselor's summary for further information Medical History: Significant for bronchial asthma, hypertension, type 2 diabetes mellitus, PPD+, history of transcient ischemic attack in 2012 and surgeries(tubal ligation, ovarian cyst, total abdominal hysterectomy in 2015). Smokes 5 cigarettes daily Psychiatric History: Patient is known to securities underwriter from an encounter during a recent admission to this facility on 06/06/19. Historical narrative remains consistent. She reports that her first psychiatric contact was at age 42 when she was diagnosed with Bipolar Disorder and Depression. Reports multiple psychiatric hospitalizations in facilities in [facility]. Reports that her most recent admission was earlier in 2019 to [facility] in the [place]. Reports that she was seeing a psychiatrist at a clinic located on [facility] and she was prescribed Seroquel 300 mg po HS, Celexa 10 mg po daily and Klonopin 0.5 mg po TID prn. Told securities underwriter that she has not seen that psychiatrist for a few months. During her most recent admission to this facility earlier this month, she saw securities underwriter and she was prescribed Seroquel 300 mg/hs. Claims that she got 30 days suppy of medication from her pharmacy and she has been taking it since discharge on 06/07/19 despite relapsing. Denies previous suicidal attempt. At present, denies psychotic, manic or depressive symptoms, S/H ideations. However , reports feeling irritable and sleeping poorly. Requests to continue Seroquel Physical/Sexual Abuse/Trauma History: Denies history of emotional, physical or sexual as well as DV relationship Additional Comment: Reports history of one previous felony conviction. Denies being on parole/probation Mental Status Exam - Mental Status Exam Alert and Oriented to: Time, Place, Person Cognitive Function: Fair Patient Appearance: Well Groomed Mood: Irritable Affect: Appropriate Patient Behavior: Cooperative Speech Pattern: Clear Voice Loudness: Normal Thought Process: Intact, Goal Oriented Thought Disorder: Not Present Hallucinations: Denies Suicidal Ideation: Denies Homicidal Ideation: Denies Insight/Judgement: Poor Sleep: Poorly Appetite: Poor Muscle strength/Tone: Normal Gait/Station: Normal Psychiatric Findings - Problem List (Antonito 1, 2,3) (1) Bipolar II disorder Current Visit: No Status: Chronic (2) Substance induced mood disorder Current Visit: Yes Status: Acute (3) Substance-induced sleep disorder Current Visit: No Status: Acute (4) Opioid dependence with withdrawal Current Visit: Yes Status: Acute (5) Nicotine dependence Current Visit: Yes Status: Chronic Qualifiers: Nicotine product type: cigarettes (6) Asthma Current Visit: No Status: Chronic Qualifiers: Asthma severity: mild Asthma persistence: unspecified Asthma complication type: unspecified Qualified Code(s): J45.909 - Unspecified asthma , uncomplicated (7) Back pain Current Visit: No Status: Chronic Qualifiers: Back pain location: low back pain Chronicity: chronic Back pain laterality: unspecified (8) Hypertension Current Visit: No Status: Chronic Qualifiers: Hypertension type: essential hypertension Qualified Code(s): I10 - Essential (primary) hypertension (9) Insulin dependent diabetes mellitus Current Visit: No Status: Chronic (10) Neuropathy of right lower extremity Current Visit: No Status: Chronic (11) History of hysterectomy Current Visit: No Status: Resolved (12) PPD positive, treated Current Visit: No Status: Resolved - Initial Treatment Plan Initial Treatment Plan: 1) Continue Seroquel 300 mg po HS. 2) Continue inpatient detoxification
[2019-06-26] MEDS ORDERED: METHADONE HCL 5 MG TABLET (FOR DETOX USE ONLY) ONE (09:09)
[2019-06-26] MEDS ORDERED: METHADONE HCL 10 MG TABLET (FOR DETOX USE ONLY) ONE (09:09)
[2019-06-26] MEDS ORDERED: METHADONE (DETOX) 20 MG, METHADONE (DETOX) 5 MG PO ONE (10:00)
[2019-06-26] MEDS: ASPIRIN COATED 81 MG TABLET.EC PO SCH (10:25)
[2019-06-26] MEDS: PRENATAL VITAMINS W/ FOLIC ACID TABLET (FP) PO SCH (10:25)
[2019-06-26] MEDS: diazePAM 5 MG TABLET PO PRN ×2 (10:50→15:20)
--- NOTE | 2019-06-26 12:07 | PN ---
BHS COWS - Scale Resting Pulse: 0= [place] 80 or Below Sweatin= Chills/Flushing Restless Observation: 1= Difficult to Sit Still Pupil Size: 0= Normal to Room Light Bone or Joint Aches: 2= Severe Diffuse Aches Runny Nose/ Eye Tearin= Runny Nose/Eyes GI Upset > 30mins: 0= None Tremor Observation of Outstretched Hands: 2= Slight Tremor Visible Yawning Observation: 2= >3x During Session Anxiety or Irritability: 2=Irritable/Anxious Goose Flesh Skin: 0=Smooth Skin COWS Score: 12 BHS Progress Note (SOAP) Subjective: irritable agitation sweats shakes Objective: 06/26/19 12:06 Vital Signs Temperature 98.4 F 06/26/19 09:27 Pulse Rate 79 06/26/19 09:27 Respiratory Rate 16 06/26/19 09:27 Blood Pressure 156/113 H 06/26/19 09:27 O2 Sat by Pulse Oximetry (%) Laboratory Tests 06/25/19 06/25/19 06/25/19 11:21 16:46 22:54 POC Glucometer 143 134 104 06/26/19 07:03 POC Glucometer 134 aaox3 ambulating no acute distress Assessment: 06/26/19 12:06 withdrawals Plan: continue detox increase fluids valium 10mg q4 prn x 3 days only
[2019-06-26] MEDS: hydrOXYzine PAMOATE 25 MG CAPSULE (FP) PO PRN (13:59)
[2019-06-26] MEDS: MELATONIN 5 MG TABLETS PO PRN (21:16)
[2019-06-26] MEDS: cloNIDine HCL 0.1 MG TABLET PO PRN (21:16)
[2019-06-26] MEDS: THIAMINE HCL 100 MG TABLET (FP) PO SCH (21:17)
[2019-06-26] MEDS: INSULIN (LEVEMIR) 100 UNITS/ML UNITS SQ SCH (21:19)
[2019-06-26] MEDS ORDERED: QUEtiapine FUMARATE 300 MG TABLET PO ONE (21:27)
[2019-06-27] MEDS: diazePAM 5 MG TABLET PO PRN ×2 (06:38→14:22)
[2019-06-27] MEDS: MUPIROCIN CA 2% TOPICAL CREAM 15 GM TUBE TP SCH ×3 (06:39→22:08)
[2019-06-27] MEDS: CEPHALEXIN MONOHYDRATE 500 MG CAPSULE (UD) PO SCH ×3 (06:39→22:07)
[2019-06-27] MEDS: INSULIN SLIDING SCALE (NOVOLOG) 1 VIAL SQ SCH ×4 (06:42→22:05)
[2019-06-27] MEDS ORDERED: METHADONE HCL 10 MG TABLET (FOR DETOX USE ONLY) PO ONE (10:00)
[2019-06-27] MEDS: ASPIRIN COATED 81 MG TABLET.EC PO SCH (10:44)
[2019-06-27] MEDS: PRENATAL VITAMINS W/ FOLIC ACID TABLET (FP) PO SCH (10:44)
--- NOTE | 2019-06-27 13:18 | PN ---
BHS COWS - Scale Resting Pulse: 2= OK 101-120 Sweatin=Flushed/Facial Moisture Restless Observation: 1= Difficult to Sit Still Pupil Size: 0= Normal to Room Light Bone or Joint Aches: 2= Severe Diffuse Aches Runny Nose/ Eye Tearin= Nasal Congestion GI Upset > 30mins: 0= None Tremor Observation of Outstretched Hands: 1= Tremor Ramsay, Not Seen Yawning Observation: 1= 1-2x During Session Anxiety or Irritability: 2=Irritable/Anxious Goose Flesh Skin: 0=Smooth Skin COWS Score: 12 BHS Progress Note (SOAP) Subjective: sweats irritable agitation shakes interrupted sleep Objective: 06/27/19 13:17 Vital Signs Temperature 97.5 F L 06/27/19 13:02 Pulse Rate 67 06/27/19 13:02 Respiratory Rate 18 06/27/19 13:02 Blood Pressure 128/79 06/27/19 13:02 O2 Sat by Pulse Oximetry (%) Laboratory Tests 06/25/19 06/25/19 06/25/19 11:21 16:46 22:54 POC Glucometer 143 134 104 06/26/19 06/26/19 06/26/19 07:03 16:45 21:15 POC Glucometer 134 187 146 06/27/19 06:32 POC Glucometer 122 aaox3 ambulating no acute distress Assessment: 06/27/19 13:17 withdrawal sx Plan: continue detox increase fluids
[2019-06-27] MEDS: INSULIN (LEVEMIR) 100 UNITS/ML UNITS SQ SCH (22:07)
[2019-06-27] MEDS: QUEtiapine FUMARATE 300 MG TABLET PO SCH (22:07)
[2019-06-27] MEDS: THIAMINE HCL 100 MG TABLET (FP) PO SCH (22:07)
[2019-06-28] MEDS: CEPHALEXIN MONOHYDRATE 500 MG CAPSULE (UD) PO SCH ×3 (06:33→22:43)
[2019-06-28] MEDS: diazePAM 5 MG TABLET PO PRN ×2 (06:35→13:20)
[2019-06-28] MEDS: INSULIN SLIDING SCALE (NOVOLOG) 1 VIAL SQ SCH ×4 (06:43→22:53)
[2019-06-28] MEDS: MUPIROCIN CA 2% TOPICAL CREAM 15 GM TUBE TP SCH ×3 (06:43→22:55)
[2019-06-28] MEDS ORDERED: METHADONE HCL 5 MG TABLET (FOR DETOX USE ONLY) ONE (09:04)
[2019-06-28] MEDS ORDERED: METHADONE HCL 10 MG TABLET (FOR DETOX USE ONLY) ONE (09:05)
[2019-06-28] MEDS ORDERED: METHADONE (DETOX) 10 MG, METHADONE (DETOX) 5 MG PO ONE (10:00)
[2019-06-28] MEDS: ASPIRIN COATED 81 MG TABLET.EC PO SCH (10:32)
[2019-06-28] MEDS: PRENATAL VITAMINS W/ FOLIC ACID TABLET (FP) PO SCH (10:32)
--- NOTE | 2019-06-28 11:14 | PN ---
BHS COWS - Scale Resting Pulse: 1= IN 81-100 Sweatin= Chills/Flushing Restless Observation: 1= Difficult to Sit Still Pupil Size: 1= Pupils >than Normal Bone or Joint Aches: 2= Severe Diffuse Aches Runny Nose/ Eye Tearin= Nasal Congestion GI Upset > 30mins: 1= Stomach Cramp Tremor Observation of Outstretched Hands: 0= None Yawning Observation: 0= None Anxiety or Irritability: 2=Irritable/Anxious Goose Flesh Skin: 0=Smooth Skin COWS Score: 10 BHS Progress Note (SOAP) Subjective: interrupted sleep, sweats, achy , irritable Objective: 06/28/19 11:13 fpt aox3 ambulating well , irritable 06/28/19 11:13 Vital Signs Temperature 97.7 F 06/28/19 09:54 Pulse Rate 72 06/28/19 09:54 Respiratory Rate 16 06/28/19 09:54 Blood Pressure 120/72 06/28/19 09:54 O2 Sat by Pulse Oximetry (%) Laboratory Tests 06/25/19 06/25/19 06/25/19 11:21 16:46 22:54 POC Glucometer 143 134 104 06/26/19 06/26/19 06/26/19 07:03 16:45 21:15 POC Glucometer 134 187 146 06/27/19 06/27/19 06/27/19 06:32 16:45 21:31 POC Glucometer 122 150 209 06/28/19 06:30 POC Glucometer 109 Assessment: 06/28/19 11:13 withdrawal sx's Plan: cont. detox increase fluids motrin prn vistarilprn
[2019-06-28] MEDS: THIAMINE HCL 100 MG TABLET (FP) PO SCH (22:43)
[2019-06-28] MEDS: QUEtiapine FUMARATE 300 MG TABLET PO SCH (22:43)
[2019-06-28] MEDS: INSULIN (LEVEMIR) 100 UNITS/ML UNITS SQ SCH (22:51)
[2019-06-28] MEDS ORDERED: cloNIDine HCL 0.1 MG TABLET PO ONE (23:13)
[2019-06-29] MEDS: MUPIROCIN CA 2% TOPICAL CREAM 15 GM TUBE TP SCH (08:38)
[2019-06-29] MEDS: CEPHALEXIN MONOHYDRATE 500 MG CAPSULE (UD) PO SCH (08:38)
[2019-06-29] MEDS: INSULIN SLIDING SCALE (NOVOLOG) 1 VIAL SQ SCH ×2 (08:39→11:18)
[2019-06-29] MEDS ORDERED: METHADONE HCL 10 MG TABLET (FOR DETOX USE ONLY) PO ONE (10:00)
[2019-06-29] MEDS: ASPIRIN COATED 81 MG TABLET.EC PO SCH (11:17)
[2019-06-29] MEDS: PRENATAL VITAMINS W/ FOLIC ACID TABLET (FP) PO SCH (11:18)
[2019-06-29 11:58] VITALS: BP 138/74; PULSE 87; TEMP 98.1
--- NOTE | 2019-06-29 16:14 | DS ---
[facility] Detox Discharge Summary Admission Date: 06/25/19 Discharge Date: 06/29/19 (Pt left AMA) - History Present History: Opioid Dependence Additional Comments: Pt left AMA. Pt did not complete her detox protocol. Pt stated she has to leave to take care of family problem. An attempt to let pt stay and complete her detox protocol failed. Pt is encouraged to follow-up with [facility] outpatient program and also to follow-up with her pmd. Pt verbalized understanding of the information given. Pt is alert and oriented x3 and in no respiratory distress. Pertinent Past History: h/o dm, asthma, HTN, and heroin use disorder. - Physical Exam Results Vital Signs: Vital Signs Temperature 98.1 F 06/29/19 11:57 Pulse Rate 87 06/29/19 11:57 Respiratory Rate 20 06/29/19 11:57 Blood Pressure 138/74 06/29/19 11:57 O2 Sat by Pulse Oximetry (%) Vital Signs 06/29/19 11:57 Temperature 98.1 F Pulse Rate 87 Respiratory 20 Rate Blood Pressure 138/74 Pertinent Admission Physical Exam Findings: withdrawal symptoms. - Treatment Hospital Course: Detox Protocol Followed - Medication Discharge Medications: Ambulatory Orders Quetiapine Fumarate [Seroquel -] 300 mg PO HS 11/28/18 Aspirin [Aspirin EC] 81 mg PO DAILY #14 tablet. 03/24/19 Insulin Glargine,Hum.rec.anlog [Lantus] 25 units SQ HS #1 vial 03/24/19 Albuterol Sulfate Inhaler - [Ventolin HFA Inhaler -] 2 inh PO QID PRN #1 inhaler 05/14/19 Cephalexin [Keflex] 500 mg PO TID MDD 14days 06/25/19 Insulin (LOG) Aspart [NovoLOG -] 0 unit SQ DAILY 06/25/19 - Diagnosis (1) Opioid dependence with withdrawal Status: Acute (2) Asthma Status: Chronic Qualifiers: Asthma severity: mild Asthma persistence: unspecified Asthma complication type: unspecified Qualified Code(s): J45.909 - Unspecified asthma , uncomplicated (3) Back pain Status: Chronic Qualifiers: Back pain location: low back pain Chronicity: chronic Back pain laterality: unspecified (4) Insulin dependent diabetes mellitus Status: Chronic (5) Neuropathy of right lower extremity Status: Chronic (6) Nicotine dependence Status: Chronic Qualifiers: Nicotine product type: cigarettes (7) History of hysterectomy Status: Resolved - AMA Did Patient Leave Against Medical Advice: Yes BHS COWS - Scale Resting Pulse: 0= [place] 80 or Below Sweatin= Chills/Flushing Restless Observation: 1= Difficult to Sit Still Pupil Size: 0= Normal to Room Light Bone or Joint Aches: 2= Severe Diffuse Aches Runny Nose/ Eye Tearin= None GI Upset > 30mins: 0= None Tremor Observation of Outstretched Hands: 0= None Yawning Observation: 0= None Anxiety or Irritability: 2=Irritable/Anxious Goose Flesh Skin: 0=Smooth Skin COWS Score: 6
[2019-06-30] MEDS ORDERED: METHADONE HCL 5 MG TABLET (FOR DETOX USE ONLY) PO ONE (06:00)
== END 2019-06-29 11:45 | disposition left against medical advice (07) | DRG 894 ==
LOC: YASAS 09:46 → Y6N 11:16
PROVIDERS: ADMIT Allergy & Immunology; ATTEND Allergy & Immunology
PROC: HZ2ZZZZ Detoxification Services for Substance Abuse Treatment (ICD-10-PCS; principal; 2019-06-25)
DX: F10.230 Alcohol dependence with withdrawal, uncomplicated (principal); F31.81 Bipolar II disorder; F19.282 Other psychoactive substance dependence with psychoactive substance-induced sleep disorder; F17.210 Nicotine dependence, cigarettes, uncomplicated; F19.24 Other psychoactive substance dependence with psychoactive substance-induced mood disorder; E11.9 Type 2 diabetes mellitus without complications; J45.909 Unspecified asthma, uncomplicated; M54.5 Low back pain; G89.29 Other chronic pain; G62.9 Polyneuropathy, unspecified; R76.11 Nonspecific reaction to tuberculin skin test without active tuberculosis; Z86.73 Personal history of transient ischemic attack (TIA), and cerebral infarction without residual deficits; Z79.4 Long term (current) use of insulin; Z90.710 Acquired absence of both cervix and uterus; Z88.6 Allergy status to analgesic agent; Z91.018 Allergy to other foods
CPT/HCPCS: 82962; J0735